=== PATIENT | female | born 1995 | race Caucasian/White ===

== ENCOUNTER → 2020-09-09 11:17 | Outpatient (CLI) | payer OTHER, SELFPAY ==
[2020-09-09 10:11] VITALS: BMI 21.8
[2020-09-09 11:32] LABS: Absolute Lymphocyte Count 0.94 X10^3/uL (0.83-4.51); Absolute Neutrophil Count 6.5 X10^3/uL (2.0-7.7); Basophil# 0.07 X10^3/uL; Basophil% 0.8 % (0-1); Eosinophil# 0.21 X10^3/uL; Eosinophils% 2.5 % (0-5); Hematocrit 40.3 % (37-47); Hemoglobin 13.2 g/dL (12.0-15.0); Lymphocyte # 0.94 X10^3/ul (0.83-4.51); Lymphocyte % 11.3 % (19-41); Mean Corp Hgb Conc 32.8 g/dL (32-36); Mean Corpuscular Hgb 28.8 pg (27.0-32.0); Mean Platelet Vol. 10.9 fl (6.2-12.0); Monocyte# 0.61 X10^3/uL; Monocyte% 7.3 % (0-10); NRBC Flagged by Analyzer 0 % (0-5); Neutrophil # 6.46 X10^3/uL (2.7-7.7); Neutrophil % 77.7 % (47-70); Platelet Count 295 K/mm3 (150-450); RBC Distribution Width CV 12.6 % (11.6-14.6); RBC Distribution Width SD 40.8 fl (35.1-43.9); Red Blood Count 4.58 M/mm3 (4.2-5.4); White Blood Count 8.3 K/mm3 (4.4-11.0)
[2020-09-09 12:25] LABS: HIV - WCH Non-Reactive (Nonreactive); Hepatitis B Surface Antigen Non-Reactive (Nonreactive); Hepatitis C Antibody Non-Reactive (Nonreactive); Rubella IgG Reactive (Nonreactive); Syphilis Antibodies Non-reactive
[2020-09-09 13:33] LABS: Amphetamine Urine VISTA NEGATIVE (<1000 ng/mL); Barbiturate Urine VISTA NEGATIVE (< 200 ng/mL); Benzodiazepine Urine VISTA NEGATIVE (< 200 ng/mL); Cocaine Urine VISTA NEGATIVE (< 300 ng/mL); Ecstacy Urine VISTA NEGATIVE (< 500 ng/mL); Methadone Urine VISTA NEGATIVE (< 300 ng/mL); PCP Urine VISTA NEGATIVE (< 25 ng/mL); THC Urine VISTA NEGATIVE (< 50 ng/mL); Vista UDS pH Range 6
[2020-09-10 20:08] LABS: Chlamydia By Nucleic Acid AMP Negative (Negative)
[2020-09-10 20:24] LABS: Gonococcus By Nucleic Acid AMP Negative (Negative)
== END ==
PROVIDERS: Referring Provider Obstetrics & Gynecology; Visit Provider Obstetrics & Gynecology
DX: Z34.90 Encounter for supervision of normal pregnancy, unspecified, unspecified trimester (principal)
CPT/HCPCS: 36415; 80307; 85025; 86703; 86762; 86780; 86803; 86850; 86900; 86901; 87086; 87340; 87491; 87591

== ENCOUNTER → 2020-12-29 08:19 | Outpatient (CLI) | payer OTHER, SELFPAY ==
[2020-12-01 08:50] VITALS: BMI 21.8
[2020-12-29 08:39] LABS: Absolute Neutrophil Count 6.8 X10^3/uL (2.0-7.7); Basophil# 0.07 X10^3/uL; Basophil% 0.8 % (0-1); Eosinophil# 0.21 X10^3/uL; Eosinophils% 2.4 % (0-5); Hematocrit 33.6 % (37-47); Lymphocyte % 9.2 % (19-41); Mean Corp Hgb Conc 32.7 g/dL (32-36); Mean Corpuscular Hgb 29.8 pg (27.0-32.0); Mean Corpuscular Volume 91.1 fL (81-99); Mean Platelet Vol. 10.2 fl (6.2-12.0); Monocyte% 5.7 % (0-10); NRBC Flagged by Analyzer 0 % (0-5); Neutrophil # 6.78 X10^3/uL (2.7-7.7); Neutrophil % 77.9 % (47-70); Platelet Count 244 K/mm3 (150-450); RBC Distribution Width CV 13.1 % (11.6-14.6); RBC Distribution Width SD 43.6 fl (35.1-43.9); Red Blood Count 3.69 M/mm3 (4.2-5.4); White Blood Count 8.7 K/mm3 (4.4-11.0)
[2020-12-29 08:46] LABS: Glucose Challenge Gest 1H 50g 112 mg/dL (70-140)
== END ==
PROVIDERS: Referring Provider Obstetrics & Gynecology; Visit Provider Obstetrics & Gynecology
DX: Z13.1 Encounter for screening for diabetes mellitus (principal)
CPT/HCPCS: 36415; 82950; 85025

== ENCOUNTER → 2021-03-02 09:14 | Outpatient (CLI) | payer OTHER, SELFPAY ==
[2021-03-02 09:22] LABS: ROM Internal Control Test YES-OK TO RESULT pt. (Internal QC)
[2021-03-02 09:36] LABS: ROM Patient Test Negative (Negative)
== END ==
PROVIDERS: Visit Provider Nurse Practitioner Women's Health
DX: Z34.90 Encounter for supervision of normal pregnancy, unspecified, unspecified trimester (principal)
CPT/HCPCS: 84112

== ENCOUNTER → 2021-03-14 13:12 | Outpatient (CLI) | payer OTHER, SELFPAY ==
[2021-03-14 13:46] LABS: Absolute Lymphocyte Count 0.76 X10^3/uL (0.83-4.51); Absolute Neutrophil Count 7.7 X10^3/uL (2.0-7.7); Basophil# 0.06 X10^3/uL; Basophil% 0.6 % (0-1); Eosinophil# 0.17 X10^3/uL; Eosinophils% 1.8 % (0-5); Hematocrit 37.1 % (37-47); Hemoglobin 12.4 g/dL (12.0-15.0); Lymphocyte # 0.76 X10^3/ul (0.83-4.51); Mean Corp Hgb Conc 33.4 g/dL (32-36); Mean Corpuscular Volume 86.7 fL (81-99); Mean Platelet Vol. 11.2 fl (6.2-12.0); Monocyte# 0.61 X10^3/uL; Monocyte% 6.4 % (0-10); NRBC Flagged by Analyzer 0 % (0-5); Neutrophil # 7.65 X10^3/uL (2.7-7.7); Neutrophil % 80.8 % (47-70); Platelet Count 242 K/mm3 (150-450); RBC Distribution Width CV 12.9 % (11.6-14.6); RBC Distribution Width SD 40.9 fl (35.1-43.9); Red Blood Count 4.28 M/mm3 (4.2-5.4); White Blood Count 9.5 K/mm3 (4.4-11.0)
[2021-03-14 14:03] LABS: ALB/GLOB Ratio 0.7 RATIO (0.9-2.4); AST(SGOT) 16 U/L (15-37); Alanine Aminotransfer ALT/SGPT 29 U/L (13-56); Albumin, Serum 2.7 g/dL (3.2-5.0); Alkaline Phosphatase 152 U/L (45-117); Anion Gap 7 (5-15); BUN 7 mg/dL (7-18); BUN/Creat Ratio 12.9 RATIO (10-20); Calcium,Total 8.8 mg/dL (8.5-10.1); Chloride 105 mmol/L (98-107); Creatinine, Serum 0.54 mg/dL (0.55-1.02); EST Glomerular Filtration Rate 145 mL/min (>60); Est Glom Filt Rate - Afr Amer 175 mL/min (>60); Globulin 3.7 g/dL (2.2-4.2); Glucose 104 mg/dL (74-106); Potassium 3.6 mmol/L (3.5-5.1); Protein, Total 6.4 g/dL (6.4-8.2); Sodium Level 136 mmol/L (136-145)
[2021-03-14 14:16] LABS: Creatinine, Urine (random) < 13.00 mg/dL (NO RANGE EST.); Protein, Urine (Random) < 6.0 mg/dL (<11.9)
== END ==
PROVIDERS: Referring Provider Nurse Practitioner Women's Health; Visit Provider Nurse Practitioner Women's Health
DX: O26.899 Other specified pregnancy related conditions, unspecified trimester (principal); R51.9 Headache, unspecified; Z3A.36 36 weeks gestation of pregnancy
CPT/HCPCS: 36415; 80053; 82570; 84156; 85025; 87081

== ENCOUNTER → 2021-03-28 12:38 | Outpatient (CLI) | payer OTHER, SELFPAY ==
[2021-03-28 13:04] VITALS: BP 125/73; PULSE 90; RESP 16; TEMP 36.1; O2SAT 97
[2021-03-28] MEDS: 0.9% NaCl Peripheral Flush Adult/Peds IV (13:12)
[2021-03-28] MEDS: Dextrose 5%-Lactated Ringers 1,000 ML 999 ML IV (13:12)
[2021-03-28 14:35] VITALS: BP 121/71; PULSE 96; RESP 16
== END ==
PROVIDERS: Referring Provider Obstetrics & Gynecology; Visit Provider Obstetrics & Gynecology
DX: E86.0 Dehydration (principal)
CPT/HCPCS: 96365; A4216

== ENCOUNTER 2021-04-03 14:48 | Inpatient (IN) | payer OTHER, SELFPAY ==
[2021-04-03] VITALS (52 sets, daily range): BP systolic 84–140; BP diastolic 42–90; PULSE 79–114; TEMP 36.3–37.1; O2SAT 92–100; BMI 29.9
[2021-04-03 14:45] LABS: ROM Internal Control Test YES-OK TO RESULT pt. (Internal QC)
[2021-04-03 14:46] LABS: ROM Patient Test POSITIVE (Negative)
[2021-04-03] MEDS: Lactated Ringers 1,000 ML 50 ML IV (15:08)
[2021-04-03] MEDS: Oxytocin 30 units/NS 500 ml 30 UNITS/500 ML IV.SOLN IV (15:19)
[2021-04-03 15:28] LABS: Absolute Lymphocyte Count 0.69 X10^3/uL (0.83-4.51); Absolute Neutrophil Count 7.8 X10^3/uL (2.0-7.7); Basophil# 0.05 X10^3/uL; Basophil% 0.5 % (0-1); Eosinophil# 0.18 X10^3/uL; Eosinophils% 1.9 % (0-5); Hematocrit 39.8 % (37-47); Hemoglobin 13.4 g/dL (12.0-15.0); Lymphocyte # 0.69 X10^3/ul (0.83-4.51); Lymphocyte % 7.3 % (19-41); Mean Corp Hgb Conc 33.7 g/dL (32-36); Mean Corpuscular Hgb 29.5 pg (27.0-32.0); Mean Corpuscular Volume 87.7 fL (81-99); Mean Platelet Vol. 10.7 fl (6.2-12.0); Monocyte% 6.4 % (0-10); NRBC Flagged by Analyzer 0 % (0-5); Neutrophil # 7.79 X10^3/uL (2.7-7.7); Neutrophil % 82.6 % (47-70); Platelet Count 260 K/mm3 (150-450); RBC Distribution Width CV 12.9 % (11.6-14.6); RBC Distribution Width SD 41.3 fl (35.1-43.9); Red Blood Count 4.54 M/mm3 (4.2-5.4); White Blood Count 9.4 K/mm3 (4.4-11.0)
[2021-04-03] MEDS: Lactated Ringers 500 ML 999 ML IV ×2 (18:24→20:15)
[2021-04-03] MEDS: fentaNYL-bupivacaine (epidural) 100 ML BAG EPIDURAL ×2 (19:33→23:37)
--- NOTE | 2021-04-03 19:40 | HP.PCM.OB_ITS ---
HPI - General General Date of Admission: 04/03/21 HPI Narrative TIMBO NULL, is a 25 F who presents with SROM clear fluid, irregular ctx Maternal Data Information GEORGE Calculator Estimated Delivery Date Method Current WG Current Estimate 04/09/21 LMP (Certain) 39w 1d Other Estimates 04/03/21 Ultrasound #1 40w 0d PFSH PFSH Medical History Crohn's disease Crohn's disease Home Medications multivitamin no.47-iron fum 27 mg-folate no.1 1 mg-dha 300 mg capsule 1 cap PO DAILY 08/31/20 [History Last Taken 04/03/21 08:00] Allergy/AdvReac Type Severity Reaction Status Date / Time Penicillins Allergy Intermediate Hives Verified 04/03/21 14:31 Family History Father Hypertension Brother Hypertension Mother Thyroid disorder Grandfather Cancer Leukemia Aunt Cancer Leukemia Uncle Cancer Leukemia Social History household members: spouse housing: house current occupational status: employed current occupation: [employer] Smoking Status: Never smoker second hand exposure: No alcohol intake: never substance use type: does not use seatbelt use: always do you feel safe at home: Yes additional social history: - Vincent ([employer]) History 1 Elective abortions Hx Para 0 Spontaneous abortions Hx # Term Pregnancies Ectopic pregnancies Hx # Pregnancies Multiple births # of living children Visit Details Expected Delivery Route/Plan discussed IOL by 39 per GI recommendation Labor Preferences- CB/BF classes: BF classes done, planning online CB classes labor support person: Vincent labor intervention preferences: [] pain management options preferred: epidural cut cord/dad catch: no : yes PP control planned: discussed discussed possible routes of delivery and associated risks: [] special requests: [] Plans covid status: pos in mar 2020 counseled regarding risk of covid in vs vaccination and declined vaccination flu vaccine: declined. tdap vaccine: declined rhogam: NA LARC form signed: yes movement and labor precautions reviewed. Problem list reviewed and updated with the most current plan of care details and appropriate orders placed. Relevant counseling for the gestational age provided. Continue routine care and follow up unless otherwise noted in visit notes/problem list details OB Flowsheet Initial Weight: 125 lb Date -?-?-?-?-?-?-?-?-?-?-?-?- EGA Weight BP Urine Prot -?-?-?-?-?-?-?-?-?-?-?-?- Glucose FHR FuHt Pres Dilation -?-?-?-?-?-?-?-?-?-?-?-?- Effaced St Visit Note 09/09/20 -?-?-?-?-?-?-?-?-?-?-?-?- 9w 5d 127 lb (+2 lb) 128/82 -?-?-?-?-?-?-?-?-?-?-?-?- 163 -?-?-?-?-?-?-?-?-?-?-?-?- GP - CRL 33mm co nsistent with LMP 10/07/20 -?-?-?-?-?-?-?-?-?-?-?-?- 13w 5d 129 lb 2 oz (+4 lb 2 oz) 104/60 Negative -?-?-?-?-?-?-?-?-?-?-?-?- Negative 155 -?-?-?-?-?-?-?-?-?-?-?-?- SM- no vb crmapi ng 11/02/20 -?-?-?-?-?-?-?-?-?-?-?-?- 17w 3d 136 lb (+11 lb) 112/64 Negative -?-?-?-?-?-?-?-?-?-?-?-?- Negative 140 -?-?-?-?-?-?-?-?-?-?-?-?- SM- no vb crmapi ng 12/01/20 -?-?-?-?-?-?-?-?-?-?-?-?- 21w 4d 144 lb (+19 lb) 130/74 Negative -?-?-?-?-?-?-?-?-?-?-?-?- Negative 150 21 -?-?-?-?-?-?-?-?-?-?-?-?- GP - no LOF, VB, DFM, ctx. Discussed GCT for next visit. 12/29/20 -?-?-?-?-?-?-?-?-?-?-?-?- 25w 4d 153 lb (+28 lb) 118/62 Negative -?-?-?-?-?-?-?-?-?-?-?-?- Negative 138 25 -?-?-?-?-?-?-?-?-?-?-?-?- MH-No Vb, LOF. Good FM. 28 wk labs, banner 01/20/21 -?-?-?-?-?-?-?-?-?-?--?-?- 28w 5d 159 lb (+34 lb) 124/78 Negative -?-?-?-?-?-?-?-?-?-?-?-?- Negative 145 28 -?-?-?-?-?-?-?-?-?-?-?-?- GP - no LOF, VB, DFM, ctx. Denies complaints. Undecided on TDAP. 02/03/21 -?-?-?-?-?-?-?-?-?-?-?-?- 30w 5d 161 lb (+36 lb) 128/66 Negative -?-?-?-?-?-?-?-?-?-?-?-?- Negative 150 30 -?-?-?-?-?-?-?-?-?-?-?-?- GP - no LOF, VB, DFM, ctx. Discussed CB classes - planning online 02/17/21 -?-?-?-?-?-?-?-?-?-?-?-?- 32w 5d 163 lb (+38 lb) 118/76 Negative -?-?-?-?-?-?-?-?-?-?-?-?- Negative 150 33 -?-?-?-?-?-?-?-?-?-?-?-?- SM- no vb lof go od fm no reluglar ctx 02/25/21 -?-?-?-?-?-?-?-?-?-?-?-?- 33w 6d 167 lb (+42 lb) 136/88 Negative -?-?-?--?-?-?-?-?-?-?-?-?- Negative 130 34 -?-?-?-?-?-?-?-?-?-?-?-?- GP - work in for abdominal trauma. lightly hit her abdomen. NST done and reactive. Warning signs reviewed. 03/02/21 -?-?-?-?-?-?-?-?-?-?-?-?- 34w 4d 169 lb 4 oz (+44 lb 4 oz) 122/78 Negative -?-?-?-?-?-?-?-?-?-?-?-?- Negative 151 0 -?-?-?-?-?-?-?-?-?-?-?-?- MH-work in for l eak of yellow fluid 0530. Had IC yesterday. No further leakage. ROM pending. NO VB, Mild cramping. Good FM 03/14/21 -?-?-?-?-?-?-?-?-?-?-?-?- 36w 2d 170 lb 6 oz (+45 lb 6 oz) 128/84 Negative -?-?-?-?-?-?-?-?-?-?-?-?- Negative 180 36 0 -?-?-?-?-?-?-?-?-?-?-?-?- MH-Work in for h eadache causing nausea/vomiting. Did not respond to tylenol. Denies vision changes right eye feels stressed. Good FM, no VB, LOF. GBS done. Mild edema ankles. None of face. Kept her awake last pm. Rx phenergan, NST today. Pre E labs. 03/21/21 -?-?-?-?-?-?-?-?-?-?-?-?- 37w 2d 175 lb 6 oz (+50 lb 6 oz) 120/70 Negative -?-?-?-?-?-?-?-?-?-?-?-?- Negative 135 37 Cephalic -?-?-?-?-?-?-?-?-?-?-?-?- Sm- no vb lof go od fm no regular ctx 03/29/21 -?-?-?-?-?-?-?-?-?-?-?-?- 38w 3d 173 lb 4 oz (+48 lb 4 oz) 128/80 Negative -?-?-?-?-?-?-?-?-?-?-?-?- Negative 135 38 Cephalic -?-?-?-?-?-?-?-?-?-?-?-?- SM- no vb lof go od fm no regular ctx. grandmother dying from covid, struggling with this. discussed her GI doctor stated she should consider a primary c section due to crohns', discussed with patient she has been in remission 4 years, no meds, and has no active perineal disease or rectal involvment so is reasonable, per GI recommend IOL to decrease size and decrease likelihood of laceration and fistula disease in the future. patient to decide but would prefer IOL and . d iscussed risks of laceration including larger baby, no epidural, OVD. 04/01/21 -?-?-?-?-?-?-?-?-?-?-?-?- 38w 6d 175 lb (+50 lb) 102/82 Negative -?-?-?-?-?-?-?-?-?-?-?-?- Negative 135 39 Cephalic 1 -?-?-?-?-?-?-?-?-?-?-?-?- 20 -3 Sm- no vb lof some dec fm discussed IOL to have reduced size at recommendation of GI doctor, patient to decide. would recommend cytotec IOL 04/03/21 -?-?-?-?-?-?-?-?-?-?-?-?- 39w 1d 174 lb 2 oz (+49 lb 2 oz) 122/70 123/78 140/67 132/65 140/77 129/69 116/63 126/75 125/69 106/53 101/59 -?-?-?-?-?-?-?-?-?-?-?-?- -?-?-?-?-?-?-?-?-?-?-?-?- NST FHR Rate Baby A Baseline: 140 Variability:: Moderate Accelerations:: 15 x 15 Decelerations:: None NST Reactive:: Yes FHR Category:: Category I Uterine Activity:: irregular ROS Constitutional Constitutional: Reports systems reviewed and no addt'l complaints, except as documented ENT HEENT: Reports systems reviewed and no addt'l complaints, except as documented Cardiovascular Cardiovascular: Reports systems reviewed and no addt'l complaints, except as documented Respiratory/Chest Respiratory/Chest: Reports systems reviewed and no addt'l complaints, except as documented Gastrointestinal Gastrointestinal: Reports systems reviewed and no addt'l complaints, except as documented and nausea; Denies abdominal pain Genitourinary Genitourinary: Reports systems reviewed and no addt'l complaints, except as documented, contractions Details: present and frequency (regular ) and movement Details: present Musculoskeletal Musculoskeletal: Reports systems reviewed and no addt'l complaints, except as documented Integumentary Integumentary: Reports as per HPI Neurologic Neurologic: Reports systems reviewed and no addt'l complaints, except as documented Endocrine Endocrinology: Reports systems reviewed and no addt'l complaints, except as documented Vital Signs Vital Signs Vital Signs: 04/03/21 14:36 04/03/21 16:35 04/03/21 16:36 Temperature 98.8 F 97.7 F L Temperature Source Temporal Pulse Rate 89 79 Blood Pressure 122/70 H 123/78 H BP Systolic 122 123 BP Diastolic 70 78 Pulse Ox 04/03/21 19:05 04/03/21 19:08 04/03/21 19:11 Temperature Temperature Source Pulse Rate 95 103 H 101 H Blood Pressure 132/65 H 140/77 H BP Systolic 132 140 BP Diastolic 65 77 Pulse Ox 99 04/03/21 19:13 04/03/21 19:15 04/03/21 19:18 Temperature Temperature Source Pulse Rate 104 H 103 H 93 Blood Pressure 129/69 H BP Systolic 129 BP Diastolic 69 Pulse Ox 100 99 04/03/21 19:20 04/03/21 19:23 04/03/21 19:26 Temperature Temperature Source Pulse Rate 99 107 H 104 H Blood Pressure 116/63 126/75 H BP Systolic 116 126 BP Diastolic 63 75 Pulse Ox 99 04/03/21 19:28 04/03/21 19:30 04/03/21 19:34 Temperature Temperature Source Pulse Rate 86 109 H Blood Pressure 125/69 H BP Systolic 125 BP Diastolic 69 Pulse Ox 99 98 04/03/21 19:35 Temperature 98.4 F Temperature Source Pulse Rate 107 H Blood Pressure 106/53 L BP Systolic 106 BP Diastolic 53 Pulse Ox Weight Weight: 174 lb 2 oz Body Mass Index (BMI) 29.9 Physical Exam Const alert, oriented x3 and healthy appearing Constitutional Narrative: uncomfortable with contractions HEENT normocephalic and moist oral mucous membranes Head and Scalp: atraumatic Neck full ROM, no lymphadenopathy, supple and thyroid normal General: trachea midline Thyroid: thyroid normal Lymph Lymphatic: no lymphadenopathy noted Chest inspection of chest normal Resp normal respiratory effort Cardio regular rate GI normal to inspection, nondistended, normoactive bowel sounds, soft to palpation and non-tender Inspection: gravid external exam normal Bimanual Exam - Vag & Uterus: uterus non-tender Manual OB Exam: estimated gestational size appropriate, presentation cephalic, dilated, effaced and station Extremity normal to inspection General Extremity: Negative for edema Skin no rashes or lesions noted Neuro deep tendon reflexes 2+ bilaterally Motor Exam: strength 5/5 throughout and clonus absent Psych mental status grossly normal Labs Labs Labs: Blood Type B POSITIVE Antibody Screen NEGATIVE Hct 39.8 % (37-47) Hgb 13.4 g/dL (12.0-15.0) Pap Smear Negative Syphilis Total Ab Non-reactive Rubella IgG Antibody Reactive (Nonreactive) Hep Bs Antigen Non-Reactive (Nonreactive) Neisseria gonorrhoeae DNA (AVERY) Negative (Negative) HIV 1&2 Antibody Non-Reactive (Nonreactive) Glucose 1 Hr 50 gm 112 mg/dL (70-140) Assessment & Plan (1) Crohn's disease: QUALIFIERS: Gastrointestinal tract location: unspecified location Digestive disease complication type: unspecified complication Qualified Code(s): K50.919 - Crohn's disease, unspecified, with unspecified complications COMMENT: no meds. abscess with fistula 5 years ago. GI recommended either IOL with small size consider primary . discussed that if no rectal disease or active perineal involvement do not recommend primary but IOL reasonable. (2) Supervision of normal : QUALIFIERS: Normal : normal first Trimester: second trimester Qualified Code(s): Z34.02 - Encounter for supervis ion of normal first , second trimester COMMENT: PRR GEORGE: 04/13/2022 boy Spouse: Vincent (3) : QUALIFIERS: Weeks of gestation: 38 weeks Qualified Code(s): Z3A.38 - 38 weeks gestation of COMMENT: declines genetic and carrier, ntd screening. nl anatomy. GBS neg (4) PROM (premature rupture of membranes): COMMENT: admit, pit AOL, epi PRN
[2021-04-04] VITALS (59 sets, daily range): BP systolic 111–133; BP diastolic 60–83; PULSE 77–127; RESP 16; TEMP 36.5–37.8; O2SAT 93–100
[2021-04-04] MEDS: Ondansetron 4 MG/2 ML Vial IV (00:18)
[2021-04-04] MEDS: 0.9% Saline Lock 10 ML Syringe IV (00:18)
[2021-04-04] MEDS: Lactated Ringers 1,000 ML 200 ML IV (01:24)
[2021-04-04] MEDS: Mag Hydrox/Al Hydrox/Simeth 30 ML UDC PO (03:12)
[2021-04-04] MEDS: Silver Nitrate (BKC) 2 EACH TOPICAL (03:55)
[2021-04-04] MEDS: Oxytocin 30 units/NS 500 ml 30 UNITS/500 ML IV.SOLN 334 UNITS IV (03:57)
--- NOTE | 2021-04-04 04:04 | EX.PCM.OBRPT ---
Assessment & Plan (1) PROM (premature rupture of membranes): COMMENT: admit, pit AOL, epi PRN (2) Crohn's disease: QUALIFIERS: Gastrointestinal tract location: unspecified location Digestive disease complication type: unspecified complication Qualified Code(s): K50.919 - Crohn's disease, unspecified, with unspecified complications COMMENT: no meds. abscess with fistula 5 years ago. GI recommended either IOL with small size consider primary . discussed that if no rectal disease or active perineal involvement do not recommend primary but IOL reasonable. (3) Supervision of normal : QUALIFIERS: Normal : normal first Trimester: second trimester Qualified Code(s): Z34.02 - Encounter for supervision of normal first , second trimester COMMENT: PRR GEORGE: 04/13/2022 boy Spouse: Vincent (4) : QUALIFIERS: Weeks of gestation: 38 weeks Qualified Code(s): Z3A.38 - 38 weeks gestation of COMMENT: declines genetic and carrier, ntd screening. nl anatomy. GBS neg (5) Vaginal delivery: COMMENT: PROM 39 SM boy Jones Maternal Data Information GEORGE Calculator Estimated Delivery Date Method Current WG Current Estimate 04/09/21 LMP (Certain) 39w 2d Other Estimates 04/03/21 Ultrasound #1 40w 1d Vaginal Delivery Operative Information Date of Procedure: 04/04/21 Pre-Operative Diagnosis: IAL Post-Operative Diagnosis: same Surgery / Procedure Performed: Spontaneous Vaginal Delivery Type of Anesthesia: Epidural Special Medications: none Estimated Blood Loss: 100 Fluids Replaced: crystalloid Findings Description of Procedure: Patient began pushing and delivered the head in the JOCELYEN presentation. The head was delivered atraumatically and a loose nuchal cord ?1 was identified and the delivered through without complication. The anterior and posterior shoulders delivered without complication followed by the rest of the infant and the was placed on the maternal abdomen. Delayed cord clamping was employed for approximately 60 seconds. Cord was clamped and cut and gentle traction was applied to the cord and the placenta delivered spontaneously immediately following it was noted to be intact with three-vessel cord. The perineum and vagina were inspected and noted to have no laceration. EBL was 100 cc. Patient and infant tolerated delivery well. Presentation: JOCELYNE Amniotic Membrane Rupture Type: Artificial Amniotic Fluid Description: Clear Placental Delivery Description: Spontaneous Placenta Disposition: [facility] Cord Vessel Description: 3 Vessels Cord Entanglement: Around neck x 1, loose A Gender: Female Delayed Cord Clamping: Yes Post Vaginal Delivery Medications Given After Delivery: IV Pitocin Episiotomy Description: None Laceration: None Complication Complications: None Procedures Urinary/Genital [id number]: [id number] [facility]
--- NOTE | 2021-04-04 04:08 | PCM.DC ---
Discharge Instructions Diet Discharge Diet: No restrictions Activity Discharge Activity: Return to Normal Activity, May Not Drive (while taking narcotic pain medications.) and May Shower May resume sexual activity in: 4-6 weeks Dressing / Incision Call your doctor if your incision/area has: Continuous Slow Oozing, Sudden Increased Bleeding, Increased Pain/ Swelling, Increased Redness and Foul Smelling Discharge Follow Up Care Please Follow Up With: Lilia Tovar MD When: Call [phone] to make an appointment with your doctor in 6 weeks. If you had elevated blood pressure or 4th degree laceration, you will need to be seen in 2 weeks. Test Results: Test results from this visit will be discussed in further detail at your follow-up appointment, if applicable. Discharge Plan Admission Admit Date/Time: 04/03/21 14:48 Primary Reason for Your Visit: vaginal delivery Attending Provider: Lilia Tovar Primary Care Provider: Care Physician,Emily Primary Discharge Orders/Prescriptions Prescriptions: No Action PNV-DHA 27 mg iron-1 mg -300 mg capsule 1 cap PO DAILY RF: 0 Referrals / Follow Up: Care Physician,No Primary [Primary Care Provider] - Disposition Disposition (needs filled in before D/C Order can be placed): Home, Self Care
[2021-04-04] MEDS: Hydrocortisone 2.5% Crm 1 APPLIC TOPICAL (09:51)
[2021-04-04] MEDS: Senna/Docusate Sodium 1 Tablet PO (09:52)
[2021-04-04] MEDS: Prenatal Vits Tablet 1 TABLET PO (09:52)
[2021-04-04] MEDS: Acetaminophen 500 MG Tablet 1000 MG PO (20:16)
[2021-04-05] VITALS (10 sets, daily range): BP systolic 116–127; BP diastolic 72–81; PULSE 74–86; RESP 14–16; TEMP 35.5–36.8
[2021-04-05] MEDS: Acetaminophen 500 MG Tablet 1000 MG PO (02:58)
--- NOTE | 2021-04-05 07:54 | PCM.PN.OB ---
Subjective Subjective Patient doing well without complaints. Tolerating PO. Ambulating and voiding without difficulty. Feeding well. Denies chest pain, shortness of breath, calf pain/swelling, fevers, chills, lightheadedness. Objective Data Objective Data Vital Signs: Vital Signs Temp Pulse Resp BP Pulse Ox 96.9 F L 82 16 125/79 H 97 04/05/21 03:01 04/05/21 03:01 04/05/21 03:01 04/05/21 03:01 04/04/21 17:15 Oxygen Delivery Method Room Air Weight: 174 lb 2 oz Body Mass Index (BMI) 29.9 Intake & Output: Intake and Output for Last 24 Hours 04/03/21 04/04/21 04/05/21 23:59 23:59 23:59 Intake Total 2036.87 / 3536.87 3800 / 3800 Output Total 3150 / 3150 Balance 2036.87 / 2786.87 650 / 650 Lab / Micro Data Result Diagrams: 04/03/21 15:10 Physical Exam Const alert and oriented x3 HEENT normocephalic Eyes PERRL Neck full ROM Resp normal respiratory effort GI soft to palpation GI Narrative: FF below U Assessment & Plan (1) Vaginal delivery: COMMENT: PROM 39 SM boy Jones PLAN: s/p PPD # 1 1. routine post delivery care 2. breast feeding- support given 3. rh positive 4. rubella immune 5. home today
[2021-04-05] MEDS: Senna/Docusate Sodium 1 Tablet PO (10:46)
[2021-04-05] MEDS: Prenatal Vits Tablet 1 TABLET PO (13:38)
[2021-04-06 02:50] VITALS: BP 135/88; PULSE 80; RESP 14; TEMP 36; TEMP 36.6
--- NOTE | 2021-04-06 07:47 | PCM.PN.OB ---
Subjective Subjective Patient doing well without complaints. Tolerating PO. Ambulating and voiding without difficulty. Breast feeding with some difficulty but improvingl. Denies chest pain, shortness of breath, calf pain/swelling, fevers, chills, lightheadedness. Objective Data Objective Data Vital Signs: Vital Signs Temp Pulse Resp BP Pulse Ox 98 F 80 14 135/88 H 97 04/06/21 02:50 04/06/21 02:50 04/06/21 02:50 04/06/21 02:50 04/04/21 17:15 Oxygen Delivery Method Room Air Weight: 174 lb 2 oz Body Mass Index (BMI) 29.9 Intake & Output: Intake and Output for Last 24 Hours 04/04/21 04/05/21 04/06/21 23:59 23:59 23:59 Intake Total 3800 / 3800 Output Total 3150 / 3150 Balance 650 / 650 Lab / Micro Data Result Diagrams: 04/03/21 15:10 Physical Exam Const alert and oriented x3 HEENT normocephalic Eyes PERRL Neck full ROM Resp normal respiratory effort GI soft to palpation GI Narrative: FF below U Assessment & Plan (1) Vaginal delivery: COMMENT: PROM 39 SM boy Jones PLAN: s/p PPD # 2 1. routine post delivery care 2. breast feeding- support given 3. rh positive 4. rubella immune 5. home today
[2021-04-06 08:15] VITALS: BP 129/77; PULSE 89; RESP 16; TEMP 36.4
[2021-04-06 08:17] VITALS: BP 129/77; PULSE 89; TEMP 36.4
[2021-04-06] MEDS: Senna/Docusate Sodium 1 Tablet PO (08:24)
[2021-04-06] MEDS: Prenatal Vits Tablet 1 TABLET PO (08:24)
[2021-04-06] MEDS: Hydrocortisone 2.5% Crm 1 APPLIC TOPICAL (08:24)
[2021-04-06 20:44] VITALS: PULSE 79; O2SAT 98
== END 2021-04-06 12:44 | disposition home or self-care (01) | DRG 806 ==
LOC: WPOUT 14:50 → WP 14:50
PROVIDERS: Admitting Provider Obstetrics & Gynecology; Visit Provider Obstetrics & Gynecology
DX: O42.92 Full-term premature rupture of membranes, unspecified as to length of time between rupture and onset of labor (principal); K50.90 Crohn's disease, unspecified, without complications; Z37.0 Single live birth; Z3A.39 39 weeks gestation of pregnancy; O99.62 Diseases of the digestive system complicating childbirth; O69.81X0 Labor and delivery complicated by cord around neck, without compression, not applicable or unspecified
CPT/HCPCS: 59025; 59050; 84112; 85025; 86850; 86900; 86901; 99218; J7120; A4216; G0378; J2405

== ENCOUNTER 2021-06-27 10:16 | Outpatient (CLI) | payer OTHER, SELFPAY | END 2021-06-27 23:59 | disposition home or self-care (01) | LOC: LABSPEC 06-28 10:16 | PROVIDERS: Visit Provider Nurse Practitioner Women's Health | DX: N76.0 Acute vaginitis (principal) | CPT/HCPCS: 87070; 87205 ==

== ENCOUNTER → 2022-05-22 | Outpatient (CLI) | payer OTHER, SELFPAY ==
[2022-05-22 10:12] LABS: Absolute Lymphocyte Count 0.83 X10^3/uL (0.83-4.51); Absolute Neutrophil Count 6.1 X10^3/uL (2.0-7.7); Basophil# 0.04 X10^3/uL; Basophil% 0.5 % (0-1); Eosinophil# 0.13 X10^3/uL; Eosinophils% 1.7 % (0-5); Hemoglobin 13.5 g/dL (12.0-15.0); Lymphocyte # 0.83 X10^3/ul (0.83-4.51); Lymphocyte % 11.1 % (19-41); Mean Corp Hgb Conc 32.9 g/dL (32-36); Mean Corpuscular Hgb 28.7 pg (27.0-32.0); Mean Corpuscular Volume 87.2 fL (81-99); Mean Platelet Vol. 10.7 fl (6.2-12.0); Monocyte# 0.37 X10^3/uL; Monocyte% 4.9 % (0-10); NRBC Flagged by Analyzer 0 % (0-5); Neutrophil # 6.08 X10^3/uL (2.7-7.7); Neutrophil % 81.3 % (47-70); Platelet Count 328 K/mm3 (150-450); RBC Distribution Width CV 12.9 % (11.6-14.6); RBC Distribution Width SD 40.5 fl (35.1-43.9); White Blood Count 7.5 K/mm3 (4.4-11.0)
[2022-05-22 11:14] LABS: HIV - WCH Non-Reactive (Nonreactive); Hepatitis B Surface Antigen Non-Reactive (Nonreactive); Hepatitis C Antibody Non-Reactive (Nonreactive); Rubella IgG Reactive (Nonreactive); Syphilis Antibodies Non-reactive
[2022-05-24 00:06] LABS: Chlamydia By Nucleic Acid AMP Negative (Negative)
[2022-05-24 16:06] LABS: HPV Reflexed? NOT INDICATED
[2022-05-24 16:56] LABS: Gonococcus By Nucleic Acid AMP Negative (Negative)
== END | disposition home or self-care (01) ==
PROVIDERS: Referring Provider Obstetrics & Gynecology; Visit Provider Obstetrics & Gynecology
DX: Z34.91 Encounter for supervision of normal pregnancy, unspecified, first trimester (principal)
CPT/HCPCS: 36415; 85025; 86703; 86762; 86780; 86803; 86850; 86900; 86901; 87086; 87088; 87340; 87491; 87591; 88175; G0145

== ENCOUNTER → 2022-09-18 | Outpatient (CLI) | payer OTHER, SELFPAY ==
[2022-09-18 08:50] LABS: Absolute Lymphocyte Count 1.05 X10^3/uL (0.83-4.51); Basophil# 0.07 X10^3/uL; Basophil% 0.8 % (0-1); Eosinophil# 0.34 X10^3/uL; Eosinophils% 3.7 % (0-5); Hematocrit 36.3 % (37-47); Lymphocyte # 1.05 X10^3/ul (0.83-4.51); Lymphocyte % 11.5 % (19-41); Mean Corp Hgb Conc 33.1 g/dL (32-36); Mean Corpuscular Hgb 29.4 pg (27.0-32.0); Mean Platelet Vol. 10.4 fl (6.2-12.0); Monocyte# 0.49 X10^3/uL; Monocyte% 5.3 % (0-10); NRBC Flagged by Analyzer 0 % (0-5); Neutrophil # 6.97 X10^3/uL (2.7-7.7); Platelet Count 246 K/mm3 (150-450); RBC Distribution Width CV 13.2 % (11.6-14.6); RBC Distribution Width SD 43.8 fl (35.1-43.9); Red Blood Count 4.08 M/mm3 (4.2-5.4); White Blood Count 9.2 K/mm3 (4.4-11.0)
[2022-09-18 09:03] LABS: Glucose Challenge Gest 1H 50g 117 mg/dL (70-140)
[2022-09-18 09:38] LABS: HIV - WCH Non-Reactive (Nonreactive); Syphilis Antibodies Non-reactive
== END | disposition home or self-care (01) ==
LOC: PAVLAB 08:25
PROVIDERS: Referring Provider Advanced Practice Midwife; Visit Provider Advanced Practice Midwife
DX: O09.90 Supervision of high risk pregnancy, unspecified, unspecified trimester (principal); Z3A.00 Weeks of gestation of pregnancy not specified
CPT/HCPCS: 36415; 82950; 85025; 86703; 86780

== ENCOUNTER → 2022-11-27 | Outpatient (CLI) | payer OTHER, SELFPAY | END | disposition home or self-care (01) | LOC: LABSPEC 11:33 | PROVIDERS: Referring Provider Registered Nurse; Visit Provider Registered Nurse | DX: O09.90 Supervision of high risk pregnancy, unspecified, unspecified trimester (principal); Z3A.00 Weeks of gestation of pregnancy not specified | CPT/HCPCS: 87081 ==

== ENCOUNTER 2022-12-09 22:35 | Outpatient (CLI) | payer OTHER, SELFPAY ==
[2022-12-09 22:58] VITALS: BMI 30.4
[2022-12-09 23:09] VITALS: BP 121/71; PULSE 83; TEMP 37.1; O2SAT 97
--- NOTE | 2022-12-12 03:15 | OB.TRI.HP_ITS ---
HPI - General General Date of Admission: 12/09/22 Date of Service: 12/09/22 Chief Complaint: contractions HPI Narrative TIMBO NULL, is a 26 F who presents at 38 weeks with irregular but painful contractions. good fm. no vb/lof. Maternal Data Information GEORGE Calculator Estimated Delivery Date Method Current WG Current Estimate 12/23/22 LMP (Certain) 38w 3d PFSH PFSH Medical History (Updated 12/12/22 @ 03:16 by Aleshia Bear CNM) Anxiety Crohn's disease Crohn's disease depression Vaginal delivery Home Medications multivitamin no.47-iron fum 27 mg-folate no.1 1 mg-dha 300 mg capsule (PNV-DHA) cap PO 05/11/22 [History Last Taken 12/09/22 23:00] sertraline 25 mg tablet (Zoloft) 25 mg PO DAILY #30 tabs 12/11/22 [Rx Last Taken Unknown] Allergy/AdvReac Type Severity Reaction Status Date / Time Penicillins Allergy Intermediate Hives Verified 12/09/22 22:59 Family History Father Hypertension Brother Hypertension Mother Thyroid disorder Grandfather Cancer Leukemia Aunt Cancer Leukemia Uncle Cancer Leukemia Social History adopted: No household members: spouse and children housing: house number of children: 1 current occupational status: employed current occupation: [employer] current occupational exposures/hazards: Yes (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) pets and animals: No history of recent travel: No sexually active: Yes Smoking Status: Never smoker second hand exposure: No alcohol intake: never substance use type: does not use diet: gluten free well-balanced diet: daily or most days caffeine: Yes Type: coffee Number of servings: 1 eating out: 1-3 times/week during the past year weight has: remained stable what type of physical activity do you participate in: none morena/caodaism: Muslim seatbelt use: always do you feel safe at home: Yes 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 Date Name GA/Weeks Outcome Route Bth Weight Gen Labor Lgth Anesthesia Del [place] Provider FOB 04/04/21 Jones 39 live - full term Male epidur al [facility] SM Delivery Date: 04/04/21 Last Updated by: Maryellen Torrez PROM Visit Details Expected Delivery Route/Plan Labor Preferences- CB/BF classes: Denies labor support person: Vincent labor intervention preferences: pain management options preferred: Epidural cut cord/dad catch: cord : yes PP control planned: [] discussed possible routes of delivery and associated risks: [] special requests: warm compress to perineum, active perineal support during second phase. Plans Covid status: discussed Flu vaccine: discussed Tdap vaccine: declines Rhogam: na LARC form signed: yes Problem list reviewed and updated with the most current plan of care details and appropriate orders placed. Relevant counseling for the gestational age provided. Continue routine care and follow up unless otherwise noted in visit notes/problem list details OB Flowsheet Initial Weight: Not Recorded Date -?-?-?-?-?-?-?-?-?-?-?-?- EGA Weight BP Urine Prot -?-?-?-?-?-?-?-?-?-?-?-?- Glucose FHR FuHt Pres Dilation -?-?-?-?-?-?-?-?-?-?-?-?- Effaced St Visit Note 05/22/22 -?-?-?-?-?-?-?-?-?-?-?-?- 9w 2d 142 lb 100/70 -?-?-?-?-?-?-?-?-?-?-?-?- 180 -?-?-?-?-?-?-?-?-?-?-?-?- SM- 2.6cm cons w ith LMP 06/19/22 -?-?-?-?-?-?-?-?-?-?-?-?- 13w 2d 148 lb 4 oz 115/73 Nega tive -?-?-?-?-?-?-?-?-?-?-?-?- Negative 145 -?-?-?-?-?-?-?-?-?-?-?-?- SM- no vb crmapi ng 07/17/22 -?-?-?-?-?-?-?--?-?-?-?-?- 17w 2d 152 lb 8 oz 118/72 Nega tive -?-?-?-?-?-?-?-?-?-?-?-?- Negative 156 -?-?-?-?-?-?-?-?-?-?-?-?- MH-No Vb. Feels well. US is 07/31. Denies concerns 08/23/22 -?-?-?-?-?-?-?-?-?-?-?-?- 22w 4d 158 lb 115/76 Negative -?-?-?-?-?-?-?-?-?-?-?-?- Negative 145 23 -?-?-?-?-?-?-?-?-?-?-?-?- KW-+fm. no vb/cr amping. KW-+fm. no vb/cramping. no concerns. GTT next visit. discussed U S q 4 weeks start at 23 weeks 09/18/22 -?-?-?-?-?-?-?-?-?-?-?-?- 26w 2d 164 lb 8 oz 123/77 Nega tive -?-?-?-?-?-?-?-?-?-?-?-?- Negative 140 26 -?-?-?-?-?-?-?-?-?-?-?-?- SM- no vb lof go od fm no regular ctx 10/12/22 -?-?-?-?-?-?-?-?-?-?-?-?- 29w 5d 165 lb 2 oz 115/73 Nega tive -?-?-?-?-?-?-?-?-?-?-?-?- Negative 155 30 -?-?-?-?-?-?-?-?-?-?-?--?- JV- no lof, vagi nal bleeding, or cramping. wants to hold off on 39 week IOL and wait for spontaneous labor this time if possible. discussed risk of pp depression. 10/23/22 -?-?-?-?-?-?-?-?-?-?-?-?- 31w 2d 166 lb 4 oz 114/68 Nega tive -?-?-?-?-?-?-?-?-?-?-?-?- Negative 142 -?-?-?-?-?-?-?-?-?-?-?-?- MH-No Vb, LOF. G ood Fm. 11/06/22 -?-?-?-?-?-?-?-?-?-?-?-?- 33w 2d 167 lb 6 oz 108/72 Nega tive -?-?-?-?-?-?-?-?-?-?-?-?- Negative 130 34 -?-?-?-?-?-?-?-?-?-?-?-?- SM- no vb lof go od fm no regular ctx 11/20/22 -?-?-?-?-?-?-?-?-?-?-?-?- 35w 2d 172 lb 128/79 Negative -?-?-?-?-?-?-?-?-?-?-?-?- Negative 135 35 -?-?-?-?-?-?-?-?-?-?-?-?- Sm- no vb lof go od fm no regular ctx 11/27/22 -?-?-?-?-?-?-?-?-?-?-?-?- 36w 2d 174 lb 8 oz 120/77 Nega tive -?-?-?-?-?-?-?-?-?-?-?-?- Negative 132 36 -?-?-?-?-?-?-?-?-?-?-?-?- LC- no lof/vb/ct x. good fm. concerned with tissue integrity during delivery, wants warm compress and perineal support during delivery. reviewed CNM rolls gbs collected today. 12/04/22 -?-?-?-?-?-?-?-?-?-?-?-?- 37w 2d 177 lb 127/79 Negative -?-?-?-?-?-?-?-?-?-?-?-?- Negative 150 37 Cephalic 0 -?-?-?-?-?-?-?-?-?-?-?-?- LC- no lof/vb/ct x. good fm. gbs negative. having lalo hick, will increase po intake. no other concerns.cephalic on handheld ultrasound. NST FHR Rate Baby A Baseline: 130 Variability:: Moderate Accelerations:: 15 x 15 Decelerations:: None NST Reactive:: Yes FHR Category:: Category I Uterine Activity:: 6-8 minutes Assessment & Plan (1) Irregular contractions: PLAN: Patient presents for triage evaluation secondary to contractions. declines repeat cervical check and desires d/c home as contractions are decreasing in intensity. FHT: Moderate variability reactive no decelerations category I tracing [place]: Contractions Assessment and plan: Reactive NST, reassuring maternal and status patient discharged to home to follow-up in office, labor precautions given. See problem list details for additional plan information. Charges/Coding Procedures Urinary/Genital [id number]: [id number] non-stress test Interp
== END 2022-12-10 00:02 | disposition home or self-care (01) ==
LOC: WPOUT 22:45 → WP 22:46
PROVIDERS: Visit Provider Registered Nurse
DX: O47.1 False labor at or after 37 completed weeks of gestation (principal); Z3A.38 38 weeks gestation of pregnancy
CPT/HCPCS: 59025; 59050

== ENCOUNTER 2022-12-10 02:42 | Inpatient (IN) | payer OTHER, SELFPAY ==
[2022-12-10] VITALS (38 sets, daily range): BP systolic 117–157; BP diastolic 61–94; PULSE 77–100; RESP 16–24; TEMP 36.2–36.9; O2SAT 92–100; BMI 30.4
[2022-12-10] MEDS: Lactated Ringers 1,000 ML 50 ML IV (02:39)
[2022-12-10] MEDS: Oxytocin 15 Units/NS 250ml 15 UNITS/250 ML IV.SOLN 83 UNITS IV (03:01)
[2022-12-10] MEDS: Oxytocin 10 UNITS/ML Vial IM (03:01)
[2022-12-10 03:22] LABS: Absolute Lymphocyte Count 2.12 X10^3/uL (0.83-4.51); Absolute Neutrophil Count 9.9 X10^3/uL (2.0-7.7); Basophil# 0.09 X10^3/uL; Basophil% 0.7 % (0-1); Eosinophils% 2.9 % (0-5); Hematocrit 39.2 % (37-47); Hemoglobin 13.4 g/dL (12.0-15.0); Lymphocyte # 2.12 X10^3/ul (0.83-4.51); Lymphocyte % 15.4 % (19-41); Mean Corp Hgb Conc 34.2 g/dL (32-36); Mean Corpuscular Hgb 29.8 pg (27.0-32.0); Mean Corpuscular Volume 87.3 fL (81-99); Monocyte# 0.86 X10^3/uL; Monocyte% 6.2 % (0-10); NRBC Flagged by Analyzer 0 % (0-5); Neutrophil # 9.86 X10^3/uL (2.7-7.7); Neutrophil % 71.3 % (47-70); Platelet Count 277 K/mm3 (150-450); RBC Distribution Width CV 13.2 % (11.6-14.6); RBC Distribution Width SD 41.7 fl (35.1-43.9); Red Blood Count 4.49 M/mm3 (4.2-5.4); White Blood Count 13.8 K/mm3 (4.4-11.0)
--- NOTE | 2022-12-10 03:24 | HP.PCM.OB_ITS ---
HPI - General General Date of Admission: 12/10/22 HPI Narrative TIMBO NULL, is a 26 F who presents at 38+1 with intensifying uterine contractions. no lof/vb. +fm. Maternal Data Information GEORGE Calculator Estimated Delivery Date Method Current WG Current Estimate 12/23/22 LMP (Certain) 38w 1d PFSH PFSH Medical History Crohn's disease Crohn's disease Vaginal delivery Home Medications multivitamin no.47-iron fum 27 mg-folate no.1 1 mg-dha 300 mg capsule (PNV-DHA) cap PO 05/11/22 [History Last Taken 12/09/22 23:00] Allergy/AdvReac Type Severity Reaction Status Date / Time Penicillins Allergy Intermediate Hives Verified 12/09/22 22:59 Family History Father Hypertension Brother Hypertension Mother Thyroid disorder Grandfather Cancer Leukemia Aunt Cancer Leukemia Uncle Cancer Leukemia Social History adopted: No household members: spouse and children housing: house number of children: 1 current occupational status: employed current occupation: [employer] current occupational exposures/hazards: Yes (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) pets and animals: No history of recent travel: No sexually active: Yes Smoking Status: Never smoker second hand exposure: No alcohol intake: never substance use type: does not use diet: gluten free well-balanced diet: daily or most days caffeine: Yes Type: coffee Number of servings: 1 eating out: 1-3 times/week during the past year weight has: remained stable what type of physical activity do you participate in: none morena/zoroastrianism: Baptism seatbelt use: always do you feel safe at home: Yes additional social history: - Vincent (HistoryFile) History 2 Elective abortions Hx Para 1 Spontaneous abortions Hx # Term Pregnancies Ectopic pregnancies Hx # Pregnancies Multiple births # of living children 1 Past Pregnancies Del. Date Name GA/Weeks Outcome Route Bth Weight Gen Labor Lgth Anes t hesia Del Locatn Provider FOB 04/04/21 Jones 39 live - full term Male epidur al [facility] Delivery Date: 04/04/21 Last Updated by: Maryellen Torrez PROM Visit Details Expected Delivery Route/Plan Labor Preferences- CB/BF classes: Denies labor support person: Vincent labor intervention preferences: pain management options preferred: Epidural cut cord/dad catch: cord : yes PP control planned: [] discussed possible routes of delivery and associated risks: [] special requests: warm compress to perineum, active perineal support during second phase. Plans Covid status: discussed Flu vaccine: discussed Tdap vaccine: declines Rhogam: na LARC form signed: yes Problem list reviewed and updated with the most current plan of care details and appropriate orders placed. Relevant counseling for the gestational age provided. Continue routine care and follow up unless otherwise noted in visit notes/problem list details OB Flowsheet Initial Weight: Not Recorded Date -?-?-?-?-?-?-?-?-?-?-?-?- EGA Weight BP Urine Prot -?-?-?-?-?-?-?-?-?-?-?-?- Glucose FHR FuHt Pres Dilation -?-?-?-?-?-?-?-?-?-?-?-?- Effaced St Visit Note 05/22/22 -?-?-?-?-?-?-?-?-?-?-?-?- 9w 2d 142 lb 100/70 -?-?-?-?-?-?-?-?-?-?-?-?- 180 -?-?-?-?-?-?-?-?-?-?-?-?- SM- 2.6cm cons w ith LMP 06/19/22 -?-?-?-?-?-?-?-?-?-?-?-?- 13w 2d 148 lb 4 oz 115/73 Nega tive -?-?-?-?-?-?-?-?-?-?-?-?- Negative 145 -?-?-?-?-?-?-?-?-?-?-?-?- SM- no vb crmapi ng 07/17/22 -?-?-?-?-?-?-?-?-?-?-?-?- 17w 2d 152 lb 8 oz 118/72 Nega tive -?-?-?-?-?-?-?-?-?-?-?-?- Negative 156 -?-?-?-?-?-?-?-?-?-?-?-?- MH-No Vb. Feels well. US is 07/31. Denies concerns 08/23/22 -?-?-?-?-?-?-?-?-?-?-?-?- 22w 4d 158 lb 115/76 Negative -?-?-?-?-?-?-?-?-?-?-?-?- Negative 145 23 -?-?-?-?-?-?-?-?-?-?-?-?- KW-+fm. no vb/cr amping. KW-+fm. no vb/cramping. no concerns. GTT next visit. discussed U S q 4 weeks start at 23 weeks 09/18/22 -?-?-?-?-?-?-?-?-?-?-?-?- 26w 2d 164 lb 8 oz 123/77 Nega tive -?-?-?-?-?-?-?-?-?-?-?-?- Negative 140 26 -?-?-?-?-?-?-?-?-?-?-?-?- SM- no vb lof go od fm no regular ctx 10/12/22 -?-?-?-?-?-?-?-?-?-?-?-?- 29w 5d 165 lb 2 oz 115/73 Nega tive -?-?-?-?-?-?-?-?-?-?-?-?- Negative 155 30 -?-?-?-?-?-?-?-?-?-?-?-?- JV- no lof, vagi nal bleeding, or cramping. wants to hold off on 39 week IOL and wait for spontaneous labor this time if possible. discussed risk of pp depression. 10/23/22 -?-?-?-?-?-?-?-?-?-?-?-?- 31w 2d 166 lb 4 oz 114/68 Nega tive -?-?-?-?-?-?-?-?-?-?-?-?- Negative 142 -?-?-?-?-?-?-?-?-?-?-?-?- MH-No Vb, LOF. G ood Fm. 11/06/22 -?-?-?-?-?-?-?-?-?-?-?-?- 33w 2d 167 lb 6 oz 108/72 Nega tive -?-?-?-?-?-?-?-?-?-?-?-?- Negative 130 34 -?-?-?-?-?-?-?-?-?-?-?-?- SM- no vb lof go od fm no regular ctx 11/20/22 -?-?-?-?-?-?-?-?-?-?-?-?- 35w 2d 172 lb 128/79 Negative -?-?-?-?-?-?-?-?-?-?-?-?- Negative 135 35 -?-?-?-?-?-?-?-?-?-?-?-?- Sm- no vb lof go od fm no regular ctx 11/27/22 -?-?-?-?-?-?-?-?-?-?-?-?- 36w 2d 174 lb 8 oz 120/77 Nega tive -?-?-?-?-?-?-?-?-?--?-?-?- Negative 132 36 -?-?-?-?-?-?-?-?-?-?-?-?- LC- no lof/vb/ct x. good fm. concerned with tissue integrity during delivery, wants warm compress and perineal support during delivery. reviewed CNM rolls gbs collected today. 12/04/22 -?-?-?-?-?-?-?-?-?-?-?-?- 37w 2d 177 lb 127/79 Negative -?-?-?-?-?-?-?-?-?-?-?-?- Negative 150 37 Cephalic 0 -?-?-?-?-?-?-?-?-?-?-?-?- LC- no lof/vb/ct x. good fm. gbs negative. having lalo hick, will increase po intake. no other concerns.cephalic on handheld ultrasound. ROS Cardiovascular Cardiovascular: Denies abdominal pain, chest pain, diaphoresis or dyspnea Respiratory/Chest Respiratory/Chest: Denies change in mental status, chest congestion, chest tightness, cough, shortness of breath at rest, shortness of breath with exertion, breast mass, breast pain, breast skin changes, breast swelling, change in breast shape or nipple discharge Genitourinary Genitourinary: Reports change in urinary stream Musculoskeletal Musculoskeletal: Reports none Integumentary Integumentary: Reports none Neurologic Neurologic: Reports none Psychiatric Psychiatric: Reports none Endocrine Endocrinology: Reports none Hematologic/Lymphatic Hematologic/Lymphatic: Reports none Allergic/Immunologic Allergic/Immunologic: Reports none Vital Signs Vital Signs Vital Signs: 12/10/22 03:09 12/10/22 03:09 12/10/22 03:09 Temperature 97.2 F L Pulse Rate 86 Blood Pressure 157/82 H BP Systolic 157 BP Diastolic 82 Pulse Ox 12/10/22 03:09 12/10/22 03:09 12/10/22 03:14 Temperature Pulse Rate 88 84 Blood Pressure BP Systolic BP Diastolic Pulse Ox 100 12/10/22 03:14 12/10/22 03:19 12/10/22 03:19 Temperature Pulse Rate 84 Blood Pressure BP Systolic BP Diastolic Pulse Ox 100 100 Physical Exam Const alert, oriented x3 and no apparent distress General Appearance: cooperative, comfortable and well kempt Orientation / Consciousness: awake and oriented to person Exam Limitations: no limitations HEENT normocephalic Neck full ROM Chest inspection of chest normal Resp normal respiratory effort, normal air movement and no retractions Effort and Inspection: able to speak in complete sentences and symmetric chest movement Cardio regular rate Peripheral Pulses: pulses 2+ throughout GI normal to inspection, nondistended, normoactive bowel sounds Inspection: gravid no CVA tenderness and appearance of the vagina normal External Female Exam: normal appearance of the urethra; Negative for external lesion OB / External & Speculum: external exam normal Manual OB Exam: estimated gestational size appropriate and presentation cephalic Uterus Palpation: Negative for uterus tender Extremity normal to inspection Skin no rashes or lesions noted Neuro deep tendon reflexes 2+ bilaterally and gait normal Motor Exam: strength 5/5 throughout and clonus absent Psych Activity / Motor Behavior: appropriate eye contact Speech: normal speech Labs Labs Labs: Blood Type B POSITIVE Antibody Screen NEGATIVE Hct 39.2 % (37-47) Hgb 13.4 g/dL (12.0-15.0) Pap Smear Negative Syphilis Total Ab Non-reactive Rubella IgG Antibody Reactive (Nonreactive) Hep Bs Antigen Non-Reactive (Nonreactive) Chlamydia DNA (AVERY) Negative (Negative) Neisseria gonorrhoeae DNA (AVERY) Negative (Negative) HIV 1&2 Antibody Non-Reactive (Nonreactive) Glucose 1 Hr 50 gm 117 mg/dL (70-140) Rhogam given: No Assessment & Plan (1) Spontaneous onset of labor: PLAN: Patient presents IAL, plan expectant management for , pitocin/AROM PRN if needed. Pain management: plans epidural. GBS negative. Management of any complications: none I have reviewed the [facility] and made any clinically relevant updates. updated on admission, exam and poc. low risk and agrees with primary midwifery management. (2) Supervision of high risk , antepartum: COMMENT: PRR , GEORGE 12/23/22 girl Miriam Goldman, Vincent (3) : QUALIFIERS: Weeks of gestation: 37 weeks Qualified Code(s): Z3A.37 - 37 weeks gestation of COMMENT: gbs neg. declined genetic, ntd, & carrier testing. anatomy nl (4) Hx of depression, currently : COMMENT: zoloft if needed support international website recommended along with counseling for anxiety. (5) Anxiety: COMMENT: no meds (6) Crohn's disease: QUALIFIERS: Gastrointestinal tract location: unspecified location Digestive disease complication type: unspecified complication Qualified Code(s): K50.919 - Crohn's disease, unspecified, with unspecified complications COMMENT: normal growth, per MFM no additional growth US needed unless clinically indicated.
--- NOTE | 2022-12-10 03:27 | EX.PCM.OBRPT ---
Assessment & Plan (1) (spontaneous vaginal delivery): COMMENT: 12/10 38 weeks girl:miriam. PLAN: s/p PPD # 0 1. routine post delivery care 2. breast feeding- support given 3. rh positive 4. rubella immune (2) Supervision of high risk , antepartum: COMMENT: PRR , GEORGE 12/23/22 girl Miriam Goldman, Vincent (3) : QUALIFIERS: Weeks of gestation: 37 weeks Qualified Code(s): Z3A.37 - 37 weeks gestation of COMMENT: gbs neg. declined genetic, ntd, & carrier testing. anatomy nl (4) Hx of depression, currently : COMMENT: zoloft if needed support international website recommended along with counseling for anxiety. (5) Anxiety: COMMENT: no meds (6) Crohn's disease: QUALIFIERS: Gastrointestinal tract location: unspecified location Digestive disease complication type: unspecified complication Qualified Code(s): K50.919 - Crohn's disease, unspecified, with unspecified complications COMMENT: normal growth, per MFM no additional growth US needed unless clinically indicated. Maternal Data Information GEORGE Calculator Estimated Delivery Date Method Current WG Current Estimate 12/23/22 LMP (Certain) 38w 1d Gestational age: 38+1 Vaginal Delivery Maternal Presentation Maternal Presentation: Active Labor Maternal Presentation: at 38+1 with intensifying contractions. budging bag, SROM at 0248 Operative Information Date of Procedure: 12/10/22 Pre-Operative Diagnosis: see problem list Post-Operative Diagnosis: Surgery / Procedure Performed: Spontaneous Vaginal Delivery Type of Anesthesia: None Estimated Blood Loss: 150 Time of Delivery: 02:53 Findings Description of Procedure: Patient began pushing and delivered the head in the OP presentation. The head was delivered atraumatically. The anterior and posterior shoulders delivered without complication followed by the rest of the infant and the was placed on the maternal abdomen. Delayed cord clamping was employed for approximately 60 seconds. Cord was clamped and cut and gentle traction was applied to the cord and the placenta delivered spontaneously immediately following it was noted to be intact with three-vessel cord. The perineum and vagina were inspected and found to have no lacerations. . EBL was 150cc. Patient and tolerated delivery well, entered recovery phase stable, bonding skin to skin Presentation: Vertex Amniotic Membrane Rupture Type: Spontaneous Time of Membrane Rupture: 0248 Amniotic Fluid Description: Clear Placental Delivery Description: Spontaneous Placenta Disposition: [facility] Cord Vessel Description: 3 Vessels Cord Entanglement: None Infant A Gender: Female (1 minute): 9 (5 minute): 9 Post Vaginal Delivery Medications Given After Delivery: IV Pitocin and IM Pitocin Episiotomy Description: None Laceration: None Addendum Addendum: CNM delivery
[2022-12-10] MEDS: Methylergonovine 0.2 MG/ML Ampul IM (03:45)
[2022-12-10 04:25] LABS: Syphilis Antibodies Non-reactive
[2022-12-10] MEDS: Benzocaine/Lanolin/Aloe Vera 1 SPRAY EACH TOPICAL (05:04)
[2022-12-10] MEDS: Naproxen 500 MG Tablet PO ×2 (05:05→16:18)
[2022-12-10] MEDS: 0.9% Saline Lock 10 ML Syringe IV (06:12)
--- NOTE | 2022-12-10 09:18 | DCINST_ITS ---
Discharge Instructions Diet Discharge Diet: No restrictions Activity Discharge Activity: May Not Drive and May Shower May resume sexual activity in: 6 weeks Weight Bearing Status: Full weight bearing Dressing / Incision Call your doctor if your incision/area has: Sudden Increased Bleeding, Increased Pain/ Swelling and Foul Smelling Discharge Call your doctor if you observe: Fever of 101 or Higher, Numbness or Tingling, Change in Color, Inability to urinate, Inability to have a bowel movement, Using more than 1 pad per hour, Shortness of breath, Dizziness, Fainting spells, Chest pain, Calf discomfort and Uncontrolled pain Follow Up Care Please Follow Up With: Aleshia Bear CNM When: 6 weeks , please call office to make an appointment. Congratulations on the of your baby girl Miriam!!! Test Results: Test results from this visit will be discussed in further detail at your follow- up appointment, if applicable. Discharge Plan Admission Admit Date/Time: 12/10/22 02:42 Attending Provider: Aleshia Bear Primary Care Provider: Care Physician,Emily Primary Discharge Orders/Prescriptions Prescriptions: No Action PNV-DHA 27 mg iron-1 mg -300 mg capsule PO Referrals / Follow Up: Care Physician,No Primary [Primary Care Provider] - Disposition Disposition (needs filled in before D/C Order can be placed): Home, Self Care
[2022-12-10] MEDS: Acetaminophen 500 MG Tablet 1000 MG PO (09:54)
--- NOTE | 2022-12-10 12:32 | NURSING ---
This RN taking over patient care at this time. Report received from Adam WALSH.
[2022-12-11 00:02] VITALS: BP 125/67; PULSE 84; PULSE 86; RESP 20; TEMP 36.6; O2SAT 97
[2022-12-11 03:34] VITALS: BP 135/61; PULSE 83; PULSE 84; RESP 21; TEMP 36.7; O2SAT 98
--- NOTE | 2022-12-11 07:15 | NURSING ---
bedside report given to Torin Mcdaniels RN who is assuming care of pt at this time
--- NOTE | 2022-12-11 08:00 | PCM.PN.OB ---
Subjective Subjective Patient doing well physically, voicing concerns of anxiety, having racing thoughts and inability to sleep. Tolerating PO. Ambulating and voiding without difficulty. Feeding well. Denies chest pain, shortness of breath, calf pain/swelling, fevers, chills, lightheadedness. Objective Data Objective Data Vital Signs: Vital Signs Temp Pulse Resp BP Pulse Ox O2 Del Method 98.0 F 83 21 H 135/61 H 98 Room Air 12/11/22 03:34 12/11/22 03:34 12/11/22 03:34 12/11/22 03:34 12/11/22 03:34 12/11/22 03:34 Oxygen Delivery Method Room Air Weight: 177 lb 7.554 oz Body Mass Index (BMI) 30.4 Intake & Output: Intake and Output for Last 24 Hours 12/09/22 12/10/22 12/11/22 23:59 23:59 23:59 Intake Total 261.67 / 261.67 Output Total 550 / 550 Balance -288.33 / -288.33 Lab / Micro Data 12/10/22 02:43 Physical Exam Const alert and no apparent distress Chest inspection of chest normal and inspection of breasts normal Resp normal respiratory effort GI normal to inspection, nondistended, normoactive bowel sounds GI Narrative: fundus firm, 2 below u. normal lochia Extremity normal to inspection, no calf tenderness and no pedal edema Skin no rashes or lesions noted Psych Mood & Affect: anxious Assessment & Plan (1) (spontaneous vaginal delivery): COMMENT: 12/10 38 weeks girl:aster. (2) Hx of depression, currently : COMMENT: zoloft if needed support international website recommended along with counseling for anxiety. PLAN: start on zoloft 25 mg today f/u in office by 2 weeks pp, call office if increase s/sx of depression. immediately is s/sx of SI, thoughts of harming infant. (3) Crohn's disease: QUALIFIERS: Digestive disease complication type: unspecified complication Gastrointestinal tract location: unspecified location Qualified Code(s): K50.919 - Crohn's disease, unspecified, with unspecified complications COMMENT: normal growth, per MFM no additional growth US needed unless clinically indicated. (4) Anxiety: COMMENT: no meds PLAN: Plan s/p PPD #1 1. routine post delivery care 2. breast feeding- support given 3. rh positive 4. rubella immune 5. d/c home today
[2022-12-11 08:48] VITALS: BP 119/71; PULSE 89; RESP 16; TEMP 37.1
[2022-12-11 08:49] VITALS: TEMP 37.1
[2022-12-11 08:50] VITALS: BP 119/71; PULSE 89
--- NOTE | 2022-12-11 10:31 | CASEMGMT ---
Social Work Assessment Labor and Delivery Unit Patient Address:[id number] [place] [address] Phone number: [phone] Date of Referral: 12/10/22 Time of Referral:? 1230 Referred By: Aleshia Bear Date of Intervention: ??12/11/22 Time of Intervention:? 944 Reason for Referral:? other,e hx of depression Sw completed chart review and acknowledges social work consult due to maternal history of depression. Sw presented to bedside, introduced self to parents and explained reason for sw involvement. Parents were polite, engaged in assessment and talked openly about maternal history of depression. When need presented itself for Mother of baby (MOB- Xiomara) to complete [place] Depression Scale, father of baby (FOB- Vincent) stepped out of room respectfully. History obtained from: medical records, MOB and FOB. ? Household composition: Currently residing in the home are parents, their older son (Jones, : 04/04/21) and now baby girl. Patient's parent/guardian status:?Parents state that they have been together for 6 years. They met while on a mission trip through their voodoo. While meeting with MOB privately she denied any concerns regarding domestic violence or intimate partner violence. ? Medical History: JOSHUA is 2, para 1- now 2. JOSHUA received routine care during with [facility]. JOSHUA delivered baby precipitous vaginal delivery at 38 weeks gestation. Baby girl, named Miriam Balderas, was born weighing 6lb 10oz and her apgars were 9 and 9 at one and five minutes of life respectfully. MOB states that she is and that is going well. ? Educational Status: Both parents are high school graduates. MOB has a college degree in X-ray biology specimen technician and [place]. FOB has a business degree. Financial Status: Both parents are gainfully employed outside of the home. FOB works for [employer] in [place]. MOB works parts chaser as an X-Ray tech at [employer]. Infant Supplies:?? Parents report they have obtained everything they need for baby including a safe sleep space, car seat, clothes, diapers, wipes and a breast pump. Childcare/Caregiver(s):? MOB is the primary caregiver to baby, and FOB when he is not at work. MOB states that if there are times when both parents are working, or need a fire prevention forester for whatever reason paternal grandparents live right next door and will be able to provide assistance. Transportation:?? No transportation barriers at this time. Both parents have drivers license and reliable transportation. Programs/Agencies Involved: ???No agency involvement at this time. JOSHUA states that she was previously connected to counseling at a local agency (Could not recall the name). Children Services/Legal Issues:??No prior children services involvement, no issues or concerns warranting referral at this time. ? Behavioral Health Issues: ??Mental Health History:??FOB denies history of mental health. JOSHUA states that she had a lot of anxiety and depression around 5 weeks after she had her son. MOB states that she would start to feel anxious at night and would be worried that she would not be able to fall asleep, to the point where she would be do worked up and anxious that she wouldn't be able to sleep. JOSHUA states that during that time she did not feel as though she was able to care for her son. JOSHUA stated that is when she got connected to counseling and started a low dose of Zoloft with her OBGYN provider. MOB states that then she just started to feel better. JOSHUA reports that she did have some anxiety last night, some fear/ feelings started to creep in surrounding the worry that she would not be able to sleep. JOSHUA stated that last night she was able to get some sleep, and feels fine today. JOSHUA did meet with her cash applications representative this morning and agreed to start low dose of Zoloft as a preventative measure. JOSHUA states that she really did not want to go on medication, but she also wants to be the best version of herself during this period. JOSHUA completed [place] Depression Screen, her score was a 9. Sw educated JOSHUA on what the score says and encouraged MOB to get connected to mental health supports during this period. JOSHUA said that she is surprised her score is that high when she feels as though she is feeling ok. Sw reminded JOSHUA that she was having some anxiety last night similar to the anxiety she felt after her son was born. MOB expressed understanding. Sw provided education on signs and symptoms of baby blues and depression to MOB and FOB. MOB states that FOB is a big support person for her and she always feels comfortable sharing her feelings with him. ? Substance Use History:??No substance use history prior to or during . Family History:?MOB denies family history of substance use or mental health history. ? Drug Screens: No drug screens observed in chart review. ? Family/Social Stressors:? No family stressors identified at this time. Parents are in good spirits, thankful baby is here and looking forward to being discharged today. Support Systems: MOB states that paternal grandparents live right next door and are big supports for their family. Both parents talked to members of their voodoo regarding baby blues and depression. Both parents state they received a lot of support from their voodoo family. Both sides of family are supportive. Depression/Shaken Baby/Safe Sleeping:?Sw educated parents and provided literature on baby blues and depression/ anxiety. Parents expressed understanding and ways they can support each other during this time. Sw educated parents on shaken baby prevention and ABCs of safe sleep. Parents expressed understanding on these topics. c.?? ASSESSMENT:?MOB admitted due to delivering second baby. Baby was born via precipitous vaginal delivery. Parents state they barely made it to the hospital before baby was born. Parents were observed to provide tender care to baby during assessment. Parents were open regarding maternal history with depression. FOB very willing to help MOB and provide support. MOB states that FOB and other family members are strong support for her. Parents were open and receptive to sw involvement and support. MOB score was 9 on [place]- MOB encouraged to follow up with community mental health supports. PLAN:? MOB and baby to be discharged today when medically ready. ?No other services requested or indicated. Josemanuel Major, TRANSITIONS RN CARE COORDINATOR, LACE INSPECTOR
== END 2022-12-11 11:25 | disposition home or self-care (01) | DRG 806 ==
PROVIDERS: Admitting Provider Registered Nurse; Referring Provider Registered Nurse; Visit Provider Registered Nurse
DX: O42.92 Full-term premature rupture of membranes, unspecified as to length of time between rupture and onset of labor (principal); Z37.0 Single live birth; K50.919 Crohn's disease, unspecified, with unspecified complications; O99.62 Diseases of the digestive system complicating childbirth; Z3A.38 38 weeks gestation of pregnancy; Z87.59 Personal history of other complications of pregnancy, childbirth and the puerperium
CPT/HCPCS: 59025; 59050; 85025; 86780; 86850; 86900; 86901; 99221; J7120; A4216; G0378

== ENCOUNTER → 2023-02-15 | Outpatient (CLI) | payer OTHER, SELFPAY ==
--- NOTE | 2023-02-15 09:25 | US_ITS ---
STUDY: ULTRASOUND BREAST - LEFT REASON FOR EXAM: Female, 27 years old. Left lateral breast lump. Patient is currently breast-feeding. TECHNIQUE: Axial and longitudinal images of the LEFT breast were performed with a high resolution ultrasound transducer. # OF IMAGES: 11 COMPARISON: None. FINDINGS: LEFT Breast: The lateral aspect of the left breast was examined with ultrasound. There is dense fibroglandular tissue. No solid or cystic mass lesion is seen. US/Breast Limited Unilateral IMPRESSION: Dense fibroglandular tissue. No solid or cystic mass lesion is seen. ASSESSMENT CATEGORY: BIRADS Category 1: Negative. A letter regarding these results will be sent to the patient by the facility within 30 days. Electronically Signed: Darrell Jenkins MD at 15:06 EDT ,
[2023-02-15 11:04] LABS: T4 Free Direct 0.72 ng/dL (0.76-1.46); Thyroid Stim Hormone (TSH) 1.01 uIU/mL (0.358-3.74)
== END | disposition home or self-care (01) ==
PROVIDERS: Referring Provider Registered Nurse; Visit Provider Registered Nurse
DX: F41.9 Anxiety disorder, unspecified (principal); N63.23 Unspecified lump in the left breast, lower outer quadrant
CPT/HCPCS: 36415; 76642; 84439; 84443

== ENCOUNTER → 2024-11-07 | Outpatient (CLI) | payer OTHER, SELFPAY ==
[2024-11-07 17:09] LABS: Absolute Lymphocyte Count 1.67 X10^3/uL (0.83-4.51); Absolute Neutrophil Count 5.6 X10^3/uL (2.0-7.7); Basophil# 0.07 X10^3/uL; Basophil% 0.9 % (0-1); Eosinophil# 0.23 X10^3/uL; Eosinophils% 2.8 % (0-5); Hematocrit 38.4 % (37-47); Hemoglobin 12.8 g/dL (12.0-15.0); Lymphocyte # 1.67 X10^3/ul (0.83-4.51); Lymphocyte % 20.6 % (19-41); Mean Corp Hgb Conc 33.3 g/dL (32-36); Mean Corpuscular Hgb 28.4 pg (27.0-32.0); Mean Corpuscular Volume 85.1 fL (81-99); Mean Platelet Vol. 11.1 fl (6.2-12.0); Monocyte# 0.53 X10^3/uL; Monocyte% 6.5 % (0-10); NRBC Flagged by Analyzer 0 % (0-5); Neutrophil # 5.57 X10^3/uL (2.7-7.7); Neutrophil % 68.7 % (47-70); Platelet Count 304 K/mm3 (150-450); RBC Distribution Width CV 12.8 % (11.6-14.6); RBC Distribution Width SD 39.5 fl (35.1-43.9); Red Blood Count 4.51 M/mm3 (4.2-5.4); White Blood Count 8.1 K/mm3 (4.4-11.0)
[2024-11-07 17:42] LABS: HIV Nonreactive (Nonreactive); Hepatitis B Surface Antigen Nonreactive (Nonreactive); Hepatitis C Antibody Nonreactive (Nonreactive); Rubella IgG REAC (Nonreactive); Syphilis Antibodies Nonreactive (Nonreactive)
[2024-11-11 03:07] LABS: Chlamydia By Nucleic Acid AMP Negative (Negative); Gonococcus By Nucleic Acid AMP Negative (Negative)
== END | disposition home or self-care (01) ==
PROVIDERS: Referring Provider Registered Nurse; Visit Provider Registered Nurse
DX: Z34.90 Encounter for supervision of normal pregnancy, unspecified, unspecified trimester (principal)
CPT/HCPCS: 36415; 85025; 86703; 86762; 86780; 86803; 86850; 86900; 86901; 87086; 87088; 87340; 87491; 87591

== ENCOUNTER → 2024-12-03 | Outpatient (CLI) | payer OTHER, SELFPAY | END | disposition home or self-care (01) | PROVIDERS: Referring Provider Obstetrics & Gynecology; Visit Provider Obstetrics & Gynecology | DX: R94.6 Abnormal results of thyroid function studies (principal) | CPT/HCPCS: 36415; 84439; 84443 ==

== ENCOUNTER → 2025-03-11 | Outpatient (CLI) | payer OTHER, SELFPAY ==
[2025-03-11 12:19] LABS: Hematocrit 33.9 % (37-47); Hemoglobin 11.5 g/dL (12.0-15.0); Immature Granulocytes Count 0.080 X10^3/uL (0.0-0.0); Mean Corp Hgb Conc 33.9 g/dL (32-36); Mean Corpuscular Volume 87.1 fL (81-99); Mean Platelet Vol. 10.7 fl (6.2-12.0); NRBC Flagged by Analyzer 0 % (0-5); Platelet Count 262 K/mm3 (150-450); RBC Distribution Width CV 12.9 % (11.6-14.6); RBC Distribution Width SD 40.9 fl (35.1-43.9); Red Blood Count 3.89 M/mm3 (4.2-5.4); White Blood Count 8.3 K/mm3 (4.4-11.0)
[2025-03-11 13:08] LABS: Glucose Challenge Gest 1H 50g 105 mg/dL (70-140); HIV Nonreactive (Nonreactive); Syphilis Antibodies Nonreactive (Nonreactive)
== END | disposition home or self-care (01) ==
PROVIDERS: Advanced Practice Midwife; Visit Provider Nurse Practitioner Women's Health
DX: Z34.82 Encounter for supervision of other normal pregnancy, second trimester (principal)
CPT/HCPCS: 36415; 82950; 85025; 86703; 86780

== ENCOUNTER 2025-05-09 04:44 | Outpatient (CLI) | payer OTHER, SELFPAY ==
--- OUTSIDE RECORDS SUMMARY | 2025-05-09 04:49 | XMS RPT_ITS | CCD ---
Author Organization [facility] Care Team Providers Care Chemical Equipment Repairer Name Role Phone Dao CUNNINGHAM, Mercedes Unavailable Dante Lambert MD Unavailable Lilia Tovar MD Primary Care Provider Anni Horton Primary Care Provider Mercedes Dc MD Unavailable Dante Lambert MD Unavailable Lilia Tovar MD Primary Care Provider Care Physician, No Primary Primary Care Provider Unavailable Care Physician, No Primary Referring Provider Un available Dr. Lilia Tovar Attending Provider [phone] Anni Horton Primary Care Provider [phone] Care Physician, No Primary Primary Care Provider Unavailable Care Physician, No Primary Referring Provider Un available Dr. Lilia Tovar Attending Provider [phone] HENOK Lehman NP Attending Provider [phone] JAYNE Sweet Attending Provider [phone] Care Physician, No Primary Primary Care Provider Unavailable Care Physician, No Primary Referring Provider Un available Dr. Lilia Tovar Attending Provider [phone] Dr. Anni Harman Attending Provider [phone] HENOK Lehman NP Attending Provider [phone] JAYNE Bear Attending Provider JAYNE Bear Admit Provider JAYNE Bear Referring Provider JAYNE Bear Other Provider JOIE PAINTER [facility], DREW Primary Care Physician [phone] RUTH SOTO Attending Unavailable BALTES [employer] [facility], DREW Primary Care Unavailabl e MERCEDES WRAY, DR ABRIL Conner Attending Unavailabl e BALFLORENTIN [employer], DREW Primary Care Unavailabl e Anni Horton Primary Care Provider Ruth Soto Unavailable JULIEN CAMERON Referring Unavailable ANNI HORTON Primary Care Unavailable JULIO MACEDO Attending Unavailable BRITTANY [employer], RUTH Mohan Attending Unava ilable BALFLORENTIN PA[employer] [facility], DREW Primary Care Unavailabl e BALTES PAINTER [facility], DREW Primary Care Unavailabl e BRITTANY [employer] [facility], RUTH Mohan Attending Unava ilable Care Physician, No Primary Primary Care Provider Unavailable Cindy Beth RN Attending Provider Unavailabl e Care Physician, No Primary Referring Provider Un available Aleshia Bear CNM Attending Provider [phone] Aleshia Bear CNM Referring Provider [phone] Dr. Anni Harman DO Attending Provider Dr. Anni Harman DO Referring Provider Stephany Fierro Attending Provider [phone] NO PRIMARY CARE, MD Primary Care Unavailable SHANA BRUCE Attending Unavailable ANNI NAVAS Referring Unavailab le Care Physician, No Primary Primary Care Physicia n Unavailable Cindy Beth RN Attending Physician Unavailab Aleshia Helm CNM Attending Physician [phone] Dr. Anni Harman DO Attending Physician Stephany Fierro Attending Physician [phone] Felicita Sweet CNM Attending Physician [phone] Felicita Sweet Attending Unavailable Care Physician, No Primary Primary Care Unava ilable Care Physician, No Primary Referring Unava ilable Cindy Beth Attending Unavailable Care Physician, No Primary Primary Care Unava ilable [place] CLINICAL CODER, Stephany Attending Unavailable Care Physician, No Primary Primary Care Unava ilable Care Physician, No Primary Referring Unava ilable Care Physician, No Primary Primary Care Unava ilable Aleshia Bear Attending Unavailable Care Physician, No Primary Referring Unava ilable Care Physician, No Primary Referring Unava ilable Care Physician, No Primary Primary Care Unava ilable Anni Harman Attending Unavailabl e Care Physician, No Primary Referring Unava ilable Care Physician, No Primary Primary Care Unava ilable Aleshia Bear Attending Unavailable Care Physician, No Primary Primary Care Unava ilable [place] CLINICAL CODER, Stephany Attending Unavailable Care Physician, No Primary Referring Unava ilable Care Physician, No Primary Primary Care Unava ilable [place] CLINICAL CODER, Stephany Attending Unavailable Anni Harman Referring Unavailabl e Care Physician, No Primary Primary Care Unava ilable Anni Harman Attending Unavailabl e Care Physician, No Primary Primary Care Unava ilAleshia Mcghee Attending Aleshia Carter Referring Unavailable Allergies Allergy Classification Reported Allergen(s) Allergy Type Date of Onset Reaction(s) Facility (20 sources) Penicillins; Translations: [PENICILLINS] [facility] (2 sources) Penicillin; Translations: [penicillin] Drug Allergy Weal (disorder) [facility] Medications Current Medications Medication Drug Class(es) Dates Sig (Normalized) Sig (Original) acetylcysteine 600 mg oral capsule (7 sources) Antidote, Mucolytic, Antidote for Acetaminophen Overdose Start: 10-24-2024 take 1 capsule by mouth once daily Acetylcysteine (Nac) 600 mg capsule Active 600 mg PO daily October 24, 2024 12:00am Complies with drug therapy bacillus coagulans [id number] unt oral tablet (7 sources) Start: 10-24-2024 Bacillus Coagulans 800 million cell tablet Active NMA PO October 24, 2024 12:00am Complies with drug therapy Calc-D3-Mag Cit,Ox-K2-Herb 353 (Alive Calcium-Vitamin D3-K2) 300 mg-25 mcg- 66 mg-37.5 mcg tablet (7 sources) Start: 10-24-2024 Calc-D3-Mag Cit,Ox-K2-Herb 353 (Alive Calcium-Vitamin D3-K2) 300 mg-25 mcg- 66 mg-37.5 mcg tablet Active {tbl} PO October 24, 2024 12:00am Complies with drug therapy Start: 10-24-2024 Calc-D3-Mag Ci t,Ox-K2-Herb 353 (Alive Calcium-Vitamin D3-K2) 300 mg-25 mcg- 66 mg-37.5 mcg tablet Active {tbl} PO October 24, 2024 12:00am magnesium citrate 125 mg oral capsule (7 sources) Start: 10-24-2024 take 1 capsule by mouth once daily Magnesium Citrate 125 mg capsule Active 125 mg PO daily October 24, 2024 12:00am Complies with drug therapy mesalamine 1200 mg delayed release oral tablet (12 sources) Aminosalicylate Start: 03-18-2014 LIALDA 1.2 G T BEC EC tablet Multivit 56-Mgvh-Dtvgzg 1-Dha (Pnv-Dha) 27 mg iron-1 mg -300 mg capsule (20 sources) Start: 05-11-2022 Multivit 79-Vujy-Qpeeok 1-Dha (Pnv-Dha) 27 mg iron-1 mg -300 mg capsule Active NMA PO May 11, 2022 1:00am Complies with drug therapy Start: 05-11-2022 Multivit 47-Ir on-Folate 1-Dha (Pnv-Dha) 27 mg iron-1 mg -300 mg capsule Active NMA PO May 11, 2022 1:00am Start: 05-11-2022 Multivit 47-Ir on-Folate 1-Dha (Pnv-Dha) 27 mg iron-1 mg -300 mg capsule Active CAP PO May 11, 2022 1:00am Start: 05-11-2022 Multivit 47-Ir on-Folate 1-Dha (Pnv-Dha) 27 mg iron-1 mg -300 mg capsule Active CAP PO May 11, 2022 12:00am Start: 08-31-2020 End: 06-06-2021 Multivit 60-Qult-Kyjajh 1-Dh a (Pnv-Dha) 27 mg iron-1 mg -300 mg capsule Discontinued 1 NMA PO DAILY August 31, 2020 12:00am June 06, 2021 3:50pm Check with primary doctor Start: 08-31-2020 End: 06-06-2021 take 1 capsule by mouth once daily Multivit 63-Sqks-Nghoia 1-Dha (Pnv-Dha) 27 mg iron-1 mg -300 mg capsule Discontinued 1 CAP PO DAILY August 31, 2020 12:00am June 06, 2021 3:50pm Start: 08-31-2020 End: 06-06-2021 take 1 capsule by mouth once daily Multivit 99-Ptga-Jacfbx 1-Dha (Pnv-Dha) 27 mg iron-1 mg -300 mg capsule Discontinued 1 CAP PO DAILY August 30, 2020 11:00pm June 06, 2021 2:50pm multivit with calcium,iron,m in (DAILY VITAMINS FOR WOMEN ORAL) (7 sources) take 50 mg by mouth once daily multivit with calcium,iron,min (DAILY VITAMINS FOR WOMEN ORAL) Take 50 mg by mouth once daily. Active take 50 mg by mouth once daily m ultivit with calcium,iron,min (DAILY VITAMINS FOR WOMEN ORAL) Take 50 mg by mouth once daily. 0 Active Comment on above: Take 50 mg by mouth once daily. Multivitamin preparation (2 sources) Start: 01-02-2024 take 1 tablet by mouth once daily Multivitamin Dose = 1 tab(s), Oral, Daily, 0 Refill(s) Start Date: 01/02/24 Status: Ordered Repeat number: 1 Start: 01-02-2024 take 1 tablet by marion th once daily Multivitamin Dose = 1 tab(s), Oral, Daily, 0 Refill(s) Start Date: 01/02/24 Status: Ordered ondansetron 4 mg Red cell distributio n width determination [facility] End: 08-06-2021 SARS CoV-2 RT-PCR SARS CoV-2 RT-PCR Microbiology Timed Encounter for screening for COVID-19 1 Occurrences starting 08/06/2021 until 08/06/2021 [facility] Work Phone: Comment on above: 1 Occurrences startskyler fuentes 08/06/2021 until 08/06/2021 End: 08-07-2021 SARS CoV-2 RT-PCR [facility] Work Phone: Comment on above: 1 Occurrences starti ng 08/07/2021 until 08/07/2021 End: 08-30-2021 SARS CoV-2 RT-PCR [facility] Work Phone: Comment on above: 1 Occurrences starti ng 08/30/2021 until 08/30/2021 End: 09-15-2021 SARS CoV-2 RT-PCR [facility] Work Phone: Comment on above: 1 Occurrences starti ng 09/15/2021 until 09/15/2021 End: 09-25-2021 SARS CoV-2 RT-PCR [facility] Work Phone: Comment on above: 1 Occurrences starti ng 09/25/2021 until 09/25/2021 End: 10-09-2021 SARS CoV-2 RT-PCR SARS CoV-2 RT-PCR Microbiology Timed Encounter for screening for COVID-19 1 Occurrences starting 10/09/2021 until 10/09/2021 [facility] Work Phone: Comment on above: 1 Occurrences starti ng 10/09/2021 until 10/09/2021 End: 11-01-2021 SARS CoV-2 RT-PCR [facility] Work Phone: Comment on above: 1 Occurrences starti ng 11/01/2021 until 11/01/2021 End: 11-14-2021 SARS CoV-2 RT-PCR [facility] Work Phone: Comment on above: 1 Occurrences starti ng 11/14/2021 until 11/14/2021 SURGICAL PATHOLOGY [facility] Work Phone: Comment on above: Release Upon Mikyin g for 1 Occurrences starting 04/19/2023, 1 completed Urine culture [facility] Immunizations Immunization Date Immunization Notes Care Provider Fa tanika 04-02-2020 influenza virus vacc ine, unspecified formulation Mona Vela LPN [facility] 01-08-2018 Human Papillomavirus 9-valent vaccine Anni Horton Work Phone: [facility] 01-08-[address] ABRIL LONG DO [facility] 05-29-2017 human papilloma viru s vaccine, quadrivalent Anni Horton Work Phone: [facility] 05-29-[address] ABRIL LONG DO [facility] 03-27-2017 Human Papillomavirus 9-valent vaccine Anni Horton Work Phone: [facility] 03-27-[address] ABRIL LONG DO [facility] 03-27-2017 influenza virus vacc ine, unspecified formulation DR ABRIL LONG DO [facility] 03-27-2017 influenza, injectabl e, quadrivalent, contains preservative Anni Horton Work Phone: [facility] 04-07-2014 Influenza Vaccine 0. 5 ML >= 9 Yr Quadrivalent MFM/Nephrology COMMERCIAL Anni Smith MD Work Phone: [facility] 04-07-2014 influenza, injectabl e, quadrivalent, preservative free Anni Horton Work Phone: [facility] 07-08-2009 tetanus toxoid, redu sanjeev diphtheria toxoid, and acellular pertussis vaccine, adsorbed Anni Smith MD Work Phone: [facility] 10-16-2007 varicella virus vaccine Ale Smith MD Work Phone: [facility] 06-07-2000 diphtheria, tetanus toxoids and acellular pertussis vaccine Anni Smith MD Work Phone: [facility] 06-07-2000 diphtheria, tetanus toxoids and acellular pertussis vaccine, unspecified formulation Anni Horton Work Phone: [facility] 06-07-2000 measles, mumps and rubella virus vaccine Anni Smith MD Work Phone: [facility] 06-07-2000 measles/mumps/rubell a virus vaccine DR ABRIL LONG DO [facility] 06-07-2000 poliovirus vaccine, inactivated Anni Smith MD Work Phone: [facility] 02-02-1997 varicella virus vaccine Ale Smith MD Work Phone: [facility] 04-28-1996 diphtheria, tetanus toxoids and acellular pertussis vaccine Anni Smith MD Work Phone: [facility] 04-28-1996 diphtheria, tetanus toxoids and acellular pertussis vaccine, unspecified formulation DR ABRIL LONG DO [facility] 04-28-1996 diphtheria, tetanus toxoids and pertussis vaccine Anni Horton Work Phone: [facility] 04-28-1996 haemophilus influenz ae type b vaccine, HbOC conjugate Anni Horton Work Phone: [facility] 04-28-1996 haemophilus influenz ae type b vaccine, PRP-T conjugate Anni Smith MD Work Phone: [facility] 01-22-1996 measles, mumps and rubella virus vaccine Anni Smith MD Work Phone: [facility] 01-22-1996 measles/mumps/rubell a virus vaccine DR ABRIL LONG DO [facility] 08-01-1995 hepatitis B pediatri c vaccine DR ABRIL LONG DO [facility] 08-01-1995 hepatitis B vaccine, pediatric or pediatric/adolescent dosage Anni Smith MD Work Phone: [facility] 06-20-1995 diphtheria, tetanus toxoids and acellular pertussis vaccine Anni Smith MD Work Phone: [facility] 06-20-1995 diphtheria, tetanus toxoids and acellular pertussis vaccine, unspecified formulation DR ABRIL LONG DO [facility] 06-20-1995 diphtheria, tetanus toxoids and pertussis vaccine Anni Horton Work Phone: [facility] 06-20-1995 haemophilus influenz ae type b vaccine, HbOC conjugate Anni Horton Work Phone: [facility] 06-20-1995 haemophilus influenz ae type b vaccine, PRP-T conjugate Anni Smith MD Work Phone: [facility] 06-20-1995 poliovirus vaccine, inactivated Anni Smith MD Work Phone: [facility] 06-20-1995 trivalent poliovirus vaccine, live, oral Anni Horton Work Phone: [facility] 04-25-1995 diphtheria, tetanus toxoids and acellular pertussis vaccine Anni Smith MD Work Phone: [facility] 04-25-1995 diphtheria, tetanus toxoids and acellular pertussis vaccine, unspecified formulation DR ABRIL LONG DO [facility] 04-25-1995 diphtheria, tetanus toxoids and pertussis vaccine Anni Horton Work Phone: [facility] 04-25-1995 haemophilus influenz ae type b vaccine, HbOC conjugate Anni Horton Work Phone: [facility] 04-25-1995 haemophilus influenz ae type b vaccine, PRP-T conjugate Anni Smith MD Work Phone: [facility] 04-25-1995 poliovirus vaccine, inactivated Anni Smith MD Work Phone: [facility] 04-25-1995 trivalent poliovirus vaccine, live, oral Anni Horton Work Phone: [facility] 02-26-1995 diphtheria, tetanus toxoids and acellular pertussis vaccine Anni Smith MD Work Phone: [facility] 02-26-1995 diphtheria, tetanus toxoids and acellular pertussis vaccine, unspecified formulation DR ABRIL LONG DO [facility] 02-26-1995 diphtheria, tetanus toxoids and pertussis vaccine Anni Horton Work Phone: [facility] 02-26-1995 haemophilus influenz ae type b vaccine, HbOC conjugate Anni Horton Work Phone: [facility] 02-26-1995 haemophilus influenz ae type b vaccine, PRP-T conjugate Anni Smith MD Work Phone: [facility] 02-26-1995 hepatitis B pediatri c vaccine DR ABRIL LONG DO [facility] 02-26-1995 hepatitis B vaccine, pediatric or pediatric/adolescent dosage Anni Smith MD Work Phone: [facility] 02-26-1995 poliovirus vaccine, inactivated Anni Smith MD Work Phone: [facility] 02-26-1995 trivalent poliovirus vaccine, live, oral Anni Horton Work Phone: [facility] 1994 hepatitis B pediatri c vaccine DR ABRIL LONG DO [facility] 1994 hepatitis B vaccine, pediatric or pediatric/adolescent dosage Anni Smith MD Work Phone: [facility] Payers Date Payer Category Payer Private Health Insurance [id number] 2024 Self-pay [id number] 2024 Private Health Insurance [id number] 2023 Private Health Insurance [id number] 2022 Private Health Insurance [id number] 2021 Unknown MMO MMO ANASTASIA [id number] 2021-Present [phone] [address] [address] [place] [address] PPO [id number] 2018 Unknown [employer] [facility] MMO SUPERMED PPO [id number] 2018-Present [address] [place] [address] [id number] 1994 Unknown [id number] 7 1994 Unknown [id number] 7 1994 Unknown [id number] 7 1994 Unknown [id number] 7 1994 Unknown [id number] 9 Unknown [employer] [place] [id number] Unknown [id number] 2 Unknown [id number] 2 Unknown [id number] 2 Unknown [id number] 2 Unknown [id number] 2 Unknown [id number] 2 Unknown [id number] 2 Unknown [id number] 2 Unknown [id number] 2 Unknown [id number] 2 Social History Date Type Detail Facility Start: 01-31-2013 End: 10-24-2024 Tobacco smoking status NHIS Never smoked tobacco [facility] Start: 01-05-2020 Alcohol intake Not Asked [facility] Start: 01-05-2020 End: 04-18-2020 Alcohol intake [facility] Start: 1995 Sex Assigned At Not on file A [facility] Start: 10-13-2015 Tobacco use and exposure Smoke less tobacco non-user [facility] Start: 06-15-2020 End: 04-19-2023 Alcohol intake Ex-drinker (finding) [facility] Start: 06-15-2020 History SDOH Alcohol Frequency 1 [facility] Start: 03-04-2018 History SDOH Alcohol Comment social [facility] Start: 08-14-2021 End: 08-24-2021 Exposure to SARS-CoV-2 (event) Not sure [facility] Start: 05-22-2022 End: 12-10-2022 Tobacco smoking status NHIS Unknown if ever smoked [facility] Start: 1995 Sex Assigned At Female W [facility] Start: 04-18-2020 End: 06-15-2020 Alcohol Use Disorder Identification Test - Consumption [AUDIT-C] [facility] How often to you hav e a drink containing alcohol? Never [facility] Average Number of Drinks Not on file [facility] Start: 11-06-2018 Sex Female (finding) [facility] Goals Date Patient Goal Desired Activity /State Functional Status Date Assessment Result Facility 01-04-2024 Functional Status Up ad angela [facility] 01-04-2024 Functional Status [facility] Mental Status Date Assessment Result Facility 01-04-2024 Mental Status Orientation Oriented x 4 [facility] 01-04-2024 Mental Status [facility] Clinical Notes 02-13-2017 to 02-16-2025 Note Date & Type Note Facility 02-16-2025 Progress note [facility] 01-21-2025 Progress note [facility] 12-03-2024 Progress note [facility] 12-03-2024 Progress note Note Date/Time December 03, 2024 2:19pm [facility] [address], [address] [place] [address] OFFICE VISIT Date of Service: 12/03/24 MR#: [id number] Acct: [id number] Name: XIOMARA NULL Rep #: [id number] : 1995 Provider: Dr. 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: No Is patient in pain?: No Allergies Penicillins Allergy (Intermediate, Verified 12/03/24 13:50) Hives Medications ?Medication ?Instructions ?Recorded ?Confirmed ?Type multivitamin no.47-iron fum 27 cap PO 12/03/24 History mg-folate no.1 1 mg-dha 300 mg capsule (PNV-DHA) Bacillus coagulans 800 million cell PO 10/24/24 History cell tablet acetylcysteine 600 mg capsule (NAC) 600 mg PO QDAY 12/03/24 History calcium 300 mg-D3 25 mcg-magnesium tab PO 10/24/24 History 66 mg-K2 37.5 mcg-herbal tablet (Alive Calcium-Vitamin D3-K2) magnesium citrate 125 mg capsule 125 mg PO QDAY 12/03/24 History zinc sulfate 66 mg tablet (Zinc-15) 66 mg PO QDAY 10/1212/03/24 History Last Menstrual Period: 09/05/24 Zika: Zika virus screening: Negative : No PFSH PFSH Medical History depression Anxiety Crohn's disease Family History Father Hypertension Brother Hypertension Mother Thyroid disorder Grandfather Cancer Leukemia Aunt Cancer Leukemia Uncle Cancer Leukemia Aunt Liver cancer Social History adopted: No household members: spouse and children housing: house number of children: 2 current occupation: [employer] current occupational exposures/hazards: No pets and animals: Yes pets and animals: dog(s) history of recent travel: No sexually active: Yes Smoking Status: Never smoker second hand exposure: No alcohol intake: never substance use type: does not use diet: gluten free well-balanced diet: daily or most days caffeine: Yes Type: coffee Number of servings: 1 eating out: 1-3 times/week during the past year weight has: remained stable what type of physical activity do you participate in: walking and weight training frequency: 5-6 times per week duration: 30-45 minutes/day morena/mormonism: Yazidism seatbelt use: always do you feel safe at home: Yes additional social history: : Vincent melgar History 3 Elective abortions Hx Para 2 Spontaneous abortions 0 Hx # Term Pregnancies 2 Ectopic pregnancies Hx # Pregnancies Multiple births # of living children 2 Past Pregnancies Del. Date Name GA/Weeks Outcome Route Bth Weight Infant Gen Labor Lgth Anesthesia Del [facility] Provider FOB 04/04/21 Jones 39 live - full term 7lbs 10oz Male ep idural [facility] SM Vincent 12/10/22 Miriam 38 live - full term 6lbs 10oz Female none [facility] Aleshia Bear CNIna Kaur Delivery Date: 04/04/21 Last Updated by: Maryellen Torrez PROM Delivery Date: 12/10/22 Last Updated by: Linda Scruggs see problem list for complications. HPI 13wk OB Details: XIOMARA NULL is a 28 year old who presents for routine OB visit. OB Visit GEORGE Calculator Estimated Delivery Date Method Current WG Current Estimate 06/12/25 LMP (Certain) 12w 5d Other Estimates 06/06/25 Ultrasound #2 13w 4d Expected Delivery Route/Plan Labor Preferences- CB/BF classes: [] labor support person: [] labor intervention preferences: [] pain management options preferred: [] cut cord/dad catch: [] : [] PP control planned: [] discussed possible routes of delivery and associated risks: [] special requests: [] Specific Issue/Plans Covid status: [] Flu vaccine: [] Tdap vaccine: [] Rhogam: [] LARC form signed: [] Problem list reviewed and updated with the most current plan of care details and appropriate orders placed. Relevant counseling for the gestational age provided. Continue routine care and follow up unless otherwise noted in visit notes/problem list details Initial Weight: 151 lb Date -?-?-?-?-?-?-?-?-?-?-?-?- EGA Weight BP Urine Prot -?-?-?-?-?-?-?-?-?-?-?-?- Glucose FHR FuHt Pres Dilation -?-?-?-?-?-?-?-?-?-?-?-?- Effaced St Visit Note 11/07/24 -?-?-?-?-?-?-?-?-?-?-?-?- 9w 0d 151 lb 4 oz (+4 oz) 121/76 -?-?-?-?-?-?-?-?-?-?-?-?- 175 -?-?-?-?-?-?-?-?-?-?-?-?- LC-2.71cm con wi th LMP. declines nipt. 12/03/24 -?-?-?-?-?-?-?-?-?-?-?-?- 12w 5d 153 lb 2 oz (+2 lb 2 oz) 117/76 -?-?-?-?-?-?-?-?-?-?-?-?- 165 -?-?--?-?-?-?-?-?-?-?-?-?- JV- CRL today is measuring 13 weeks 4 days however first scan per LC was measuring closer to LMP. no change in due date but did have an abnormal free T4 back in 2022 that needs repeated today. ACOG First Trimester First Trimester: Desire for , Alcohol, Tobacco Cessation, Illicit/Recreational Drug/Substance Use, Intimate Partner Violence, Barriers to care, Unstable Housing, Communication Barriers, Environmental/Work Hazards, Anticipated Course of Care, Toxoplasmosis Precations, Use of Any medications, Sexual activity, Exercise, Dental Care, Sauna/Hot tub use, Seat Belt use, Childbirth classes/Hospital facilities, Travel, Indications for Ultrasound and Screening for Aneuploidy; Discussed Second Trimester Second Trimester: Signs and Symptoms of Labor, Selecting a care provider, Reproductive Life Planning & Contreception, Care Planning, Depression/Anxiety and Intimate Partner Violence; Discussed Tobacco Cessation Third Trimester Third Trimester: Pain Management Plans, Labor support person(s), Immediate Larc, Signs and Symptoms of Preeclampsia, Feeding No , [place] Education, Family Medical Leave or Disability Forms and Depression; Discussed Circumcision preference and Discussed Intimate Partner Violence Coding Level of Care Code OB Routine Diagnoses Supervision of normal Z34.90 12 weeks gestation of Z3A.12 Weeks of gestation: 12 weeks History of depression, currently O99.891; Z86.59 Crohn's disease with complication, unspecified gastrointestinal tract location K50.919 Digestive disease complication type: unspecified complication Gastrointestinal tract location: unspecified location Abnormal thyroid uptake study R94.6 Assessment and Plan Assessment and Plan (1) Supervision of normal : Status: Acute Comment: , GEORGE 06/12/25; PC: Bob, : Vincent (2) : Status: Acute Qualifiers: Weeks of gestation: 12 weeks Qualified Code(s): Z3A.12 - 12 weeks gestation of Comment: Discussed genetic/carrier testing - undecided (3) History of depression, currently : Status: Acute Comment: Was on Zoloft, no meds currently; Stable may desire to restart immediately pp (4) Crohn's disease: Status: Chronic Qualifiers: Digestive disease complication type: unspecified complication Gastrointestinal tract location: unspecified location Qualified Code(s): K50.919 - Crohn's disease, unspecified, with unspecified complications (5) Abnormal thyroid uptake study: Status: Acute Orders: Orders POC Urinalysis 2 Dip (Clinic) Today Thyroid Stim Hormone (TSH) Today R94.6 - Abnormal results of thyroid function studies Free T4 Today R94.6 - Abnormal results of thyroid function studies 12/03/24 1419 <Electronically signed by Anni Ansari DO> Date _ Anni Harman DO Cosigner Signature: Date (if applicable) CC: ~ [facility] Work Phone: 1(416) 499-495506-27-2025 Evaluation note* Diagnosis Onset Date Resolution Status Admit Date History of depression, currently acute J [facility] 2024 2:47pm acute November 07 2:47pm Supervision of normal acut e November 07, 2024 2:47pm Crohn's disease chronic October 2:47pm [facility] Work Phone: 1(110) 869-772106-27-2025 Evaluation note* Diagnosis Onset Date Resolution Status Admit Date History of depression, currently acute J [facility] 2024 2:47pm acute November 07 2:47pm Supervision of normal acut e November 07, 2024 2:47pm Crohn's disease chronic October 2:47pm Abnormal thyroid uptake study acute Hina 23rd, 2025 1:49pm History of depression, currently acute J carey 2024 1:49pm acute December 03 1:49pm Supervision of normal acut e December 03, 2024 1:49pm Crohn's disease chronic November 1:49pm [facility] Work Phone: 1(648) 274-355506-27-2025 Evaluation note* Diagnosis Onset Date Resolution Status Admit Date History of depression, currently acute J une 2024 2:47pm acute November 07 2:47pm Supervision of normal acute November 07, 2024 2:47pm Crohn's disease chronic October 2:47pm Abnormal thyroid uptake study acute December 03, 2024 1:49pm History of depression, currently acute J 2024 1:49pm acute December 03 1:49pm Supervision of normal acute December 03, 2024 1:49pm Crohn's disease chronic November 1:49pm Abnormal thyroid uptake study acute January 02, 2025 8:30am History of depression, currently acute A ugust 2024 8:30am acute January 02, 2 025 8:30am Supervision of normal acute January 02 8:30am Crohn's disease chronic January 022024 8:30am [facility] Work Phone: 1(236) 460-850606-27-2025 Evaluation note* Diagnosis Onset Date Resolution Status Admit Date History of depression, currently acute November 07, 2024 2:47pm acute November 07 2:47pm Supervision of normal acute November 07, 2024 2:47pm Crohn's disease chronic October 2:47pm Abnormal thyroid uptake study acute December 03, 2024 1:49pm History of depression, currently acute December 03, 2024 1:49pm acute December 03 1:49pm Supervision of normal acute December 03, 2024 1:49pm Crohn's disease chronic November 1:49pm Abnormal thyroid uptake study acute January 02, 2025 8:30am History of depression, currently acute January 02 8:30am acute January 02, 2 025 8:30am Supervision of normal acute January 02 8:30am Crohn's disease chronic January 022024 8:30am Abnormal thyroid uptake study acute January 21, 2025 9:59am History of depression, currently acute January 21, 2025 9:59am acute January 9:59am Supervision of normal acute January 21, 2025 9:59am Crohn's disease chronic January 21, 2025 9:59am [facility] Work Phone: 1(418) 127-592206-27-2025 Evaluation note* Diagnosis Onset Date Resolution Status Admit Date History of depression, currently acute November 07, 2024 2:47pm acute November 07 2:47pm Supervision of normal acute November 07, 2024 2:47pm Crohn's disease chronic October 2:47pm Abnormal thyroid uptake study acute December 03, 2024 1:49pm History of depression, currently acute December 03, 2024 1:49pm acute December 03 1:49pm Supervision of normal acute December 03, 2024 1:49pm Crohn's disease chronic November 1:49pm Abnormal thyroid uptake study acute January 02, 2025 8:30am History of depression, currently acute January 02 8:30am acute January 02, 2 025 8:30am Supervision of normal acute January 02 8:30am Crohn's disease chronic January 022024 8:30am Abnormal thyroid uptake study acute January 21, 2025 9:59am History of depression, currently acute January 21, 2025 9:59am acute January 9:59am Supervision of normal acute January 21, 2025 9:59am Crohn's disease chronic January 21, 2025 9:59am Abnormal thyroid uptake study acute February 16, 2025 9:54am History of depression, currently acute February 16 9:54am acute February 16, 2 025 9:54am Supervision of normal acute February 16 9:54am Crohn's disease chronic February 162024 9:54am [facility] Work Phone: 1(585) 182-633801-02-2025 Note* Exam Date Time Procedure Performing Provider Status 05/15/24 10:[address] Thorax w/o Contrast OVI NDIAYE MD; Auth (Verified) [id number] ORIGINAL EXAMINATION: CT OF THE CHEST WITHOUT CONTRAST 05/15/2024 10:30 am TECHNIQUE: CT of the chest was performed without the administration of intravenous contrast. Multiplanar reformatted images are provided for review. Automated exposure control, iterative reconstruction, and/or weight based adjustment of the mA/kV was utilized to reduce the radiation dose to as low as reasonably achievable. COMPARISON: None. HISTORY: ORDERING SYSTEM PROVIDED HISTORY: Reason for Exam: remote history of lung nodules noted on CT, follow-up FINDINGS: No osseous abnormality identified. 3 mm left lower lobe pulmonary nodule is evident. At the extreme right lung base, where there is an additional 3 mm nodule. These are of doubtful significance. No focal infiltrates are visible and there is no pleural fluid present. No definite mediastinal adenopathy within the constraints of a noncontrast exam. No additional contributory abnormality. IMPRESSION: 2 separate subcentimeter lower lobe pulmonary nodules of doubtful significance. Follow-up as clinically appropriate. Interpreted by: Ovi Ndiaye MD Preliminary Report By: Ovi Ndiaye MD Electronically signed By Ovi Ndiaye MD Dictated Date: 05/15/2024 10:33:11 AM Prelim Date: 05/15/2024 10:35:51 AM Sign Date: 05/15/2024 10:35:51 AM Ordering Provider: RUTH BRITTANY [facility]09-09-2024 Telephone encounter Note* Telephone Encounter - Sasha Allen - 01/21/2024 3:16 PM EDT Reached out to patient regarding referral to genetics. Left vague VM on unidentified VM box. Stated that I would follow up with a MCM and left [facility] line for a call back. Sasha Allen Genetic Counselor Technical Laboratory Asst [facility]09-09-2024 Miscellaneous Notes* Telephone Encounter - Sasha Allen - 01/21/2024 3:16 PM EDT Reached out to patient regarding referral to genetics. Left vague VM on unidentified VM box. Stated that I would follow up with a MCM and left [facility] line for a call back. Sasha Allen Genetic Counselor Technical Laboratory Asst [facility] Discharge instructions Patient Education 01/04/2024 08:23:02 Vomiting and Diarrhea, Nonspecific (Adult) Nonspecific Vomiting and Diarrhea (Adult) Vomiting and diarrhea can have many causes, including: Helping your body get rid of harmful substances Gastroenteritis caused by viruses, parasites, bacteria, or toxins. Allergy to or side effect of a food or medicine Severe stress or worry (anxiety) Other illnesses It is often hard to pinpoint an exact cause, even with testing. Vomiting and diarrhea often go awaywithin a day or two without problems. If they continue, though, they can lead to too much loss of fluid (dehydration). This can be serious if not treated. Home care Medicines You may use acetaminophen or NSAID medicines like ibuprofen or naproxen to control fever, unless another medicine was prescribed. If you have chronic liver or kidney disease, talk with your healthcare provider before using these medicines. Also talk with your provider if you've had a stomach ulcer or gastrointestinal bleeding. Don't give aspirin to anyone under 18 years of age who is ill with a fever because it may cause severe disease or . Don't use NSAID medicines if you are already taking one for another condition (like arthritis) or are on aspirin (such as for heart disease or after a stroke) Mwef-afu-rhntpkz medicines for diarrhea, nausea, and vomiting are generally OK unless you have bleeding, fever, or severe abdominal pain. General care If symptoms are severe, rest at home for the next 24 hours, or until you are feeling better. Washing your hands with soap and water, or using alcohol-based hand assisted living coordinator is the best way to stop the spread of infection. Wash your hands after touching anyone who is sick. Wash your hands after using the toilet and before meals. Clean the toilet after each use. Dry your hands with a single use towel. Caffeine, tobacco, and alcohol can make the diarrhea, cramping, and pain worse. Remember, caffeine not only is in coffee, but also is in chocolate, some energy drinks, and teas. Diet Water and clear liquids are important so you don't get dehydrated. Drink a small amount at a time. Don't guzzle down the drinks. That may increase your nausea, make cramping worse, and cause the drinks to come back up. Sports drinks may also help if you are healthy and not too dehydrated. They have too much sugar andnot enough electrolytes and can sometimes make things worse. Also, don't drink beverages that are too acidic, like orange juice and grape juice. If you are very dehydrated, commercially available products called oral rehydration solutions are best. Food Don't force yourself to eat, especially if you have cramps, diarrhea, or vomiting. Eat just a little at a time, and then wait a few minutes before you try to eat more. Don't eat fatty, greasy, spicy, or fried foods. Don't eat dairy products if you have diarrhea. They can make it worse. During the first 24 hours (the first full day), follow the diet below: Beverages: Oral rehydration solutions, sports drinks, soft drinks without caffeine, mineral water, and decaffeinated tea and coffee Soups: Clear broth, consomm , and bouillon Desserts: Plain gelatin, popsicles, and fruit juice bars During the next 24 hours (the second day), you may add the following to the above if you are better. If not, continue what you did the first day: Hot cereal, plain toast, bread, rolls, crackers Plain noodles, rice, mashed potatoes, chicken noodle or rice soup Unsweetened canned fruit (avoid pineapple), bananas Limit fat intake to less than 15 grams per day by avoiding margarine, butter, oils, mayonnaise, sauces, gravies, fried foods, peanut butter, meat, poultry, and fish. Limit fiber. Avoid raw or cooked vegetables, fresh fruits (except bananas) and bran cereals. Limit caffeine and chocolate. No spices or seasonings except salt. During the next 24 hours: Gradually resume a normal diet, as you feel better and your symptoms improve. If at any time your symptoms start getting worse again, go back to clear liquids until you feel better. Food preparation If you have diarrhea, you should not prepare food for others. When preparing foods, wash your handsbefore and after. Wash your hands or use alcohol-based assisted living coordinator after using cutting boards, countertops, and knives that have been in contact with raw food. Dry your hands with a single use towel. Keep uncooked meats away from cooked and ydzbs-ty-grb foods. Follow-up care Follow up with your healthcare provider, or as advised. Call if you don't get better in the next 2 to 3 days. If a stool (diarrhea) sample was taken, or cultures done, you will be told if they are positive, or if your treatment needs to be changed. You may call as directed for the results. If X-rays were taken, you will be notified of any new findings that may affect your care Call 911 Call 911 if any of these occur: Trouble breathing Chest pain Confusion Severe drowsiness or trouble awakening Fainting or loss of consciousness Rapid heart rate Seizure Stiff neck Severe weakness, dizziness, or lightheadedness When to seek medical advice Call your healthcare provider right away if any of these occur: Bloody or black vomit or stools Severe, steady abdominal pain or any abdominal pain that is getting worse Severe headache or stiff neck An inability to hold down even sips of liquids for more than 12 hours Vomiting that lasts more than 24 hours Diarrhea that lasts more than 24 hours Fever of 100.4 F (38.0 C) or higher, or as directed by your healthcare provider Yellowish color to your skin or the whites of your eyes Signs of dehydration, such as dry mouth, little urine (less than every 6 hours), or very dark urine [id number] [employer]. [address] [place] [address], [place] [address]. All rights reserved. This information is not intended as a substitute for professional medical care. Always follow yourhealthcare professional's instructions. Follow Up Care 01/04/2024 07:12:06 With:DREW SALTER APRN-COMMANDER INTERNAL AFFAIRS Address: [address] [place] [phone] When:2-4 days [facility] 08-23-2024 Note Discharge Instructions Thank you for allowing [facility] to assist you with your healthcare needs. The following is importantdischarge information regarding your hospital visit. Diagnosis from Today's Visit Diarrhea Vomiting What to Do Next Instructions from Your Care Team No qualifying data available. Post Acute Orders No qualifying data available. You Need to Schedule the Following Appointments Follow Up with DREW SALTER When:Within 2-4 days Where:[address] [facility] [place] [phone]- [phone] Allergies penicillin Hives Medications Please ask your primary doctor or pharmacist before taking any other medication not listed, including over the counter drugs, herbal medications, vitamins and or supplements as they may interact withyour home medications. What How Much When Instructions Last Dose New ondansetron (Zofran 4 mg oral tablet) 1 tab(s) by mouth Every 8 hours Duration: 5 Days Printed Prescription Unchanged multivitamin (Multivitamin) 1 tab(s) by mouth Every day Unchanged sertraline (sertraline 25 mg oral tablet) 1 tab(s) by mouth Once a day Please take this list to your next doctor s visit. Bring all medications you take, including over the counter medications, herbals and other supplements with you to your doctor s visit. Patients and families are reminded to discard old lists and to update any records with all medication providers or retail pharmacies. Medication Leaflets ondansetron (oral) (on SULEMA merino) What is the most important information I should know about ondansetron? You should not use ondansetron if you are also using apomorphine (Apokyn). What is ondansetron? Ondansetron blocks the actions of chemicals in the body that can trigger nausea and vomiting. Ondansetron is used to prevent nausea and vomiting that may be caused by surgery, cancer chemotherapy, or radiation treatment. Ondansetron may be used for purposes not listed in this medication guide. What should I discuss with my health care provider before taking ondansetron? You should not use ondansetron if: you are also using apomorphine (Apokyn); or you are allergic to ondansetron or similar medicines (dolasetron, granisetron, palonosetron). To make sure ondansetron is safe for you, tell your doctor if you have: liver disease; an electrolyte imbalance (such as low levels of potassium or magnesium in your blood); congestive heart failure, slow heartbeats; a personal or family history of long QT syndrome; or a blockage in your digestive tract (stomach or intestines). Ondansetron is not expected to harm an unborn baby. Tell your doctor if you are . It is not known whether ondansetron passes into breast milk or if it could harm a nursing baby. Tell your doctor if you are breast-feeding a baby. Ondansetron is not approved for use by anyone younger than 4 years old. Ondansetron orally disintegrating tablets may contain phenylalanine. Tell your doctor if you have phenylketonuria (PKU). How should I take ondansetron? Follow all directions on your prescription label. Do not take this medicine in larger or smaller amounts or for longer than recommended. Ondansetron can be taken with or without food. The first dose of ondansetron is usually taken before the start of your surgery, chemotherapy, or radiation treatment. Follow your doctor's dosing instructions very carefully. Take the ondansetron regular tablet with a full glass of water. To take the orally disintegrating tablet (Zofran ODT): Keep the tablet in its blister pack until you are ready to take it. Open the package and peel back the foil. Do not push a tablet through the foil or you may damage the tablet. Use dry hands to remove the tablet and place it in your mouth. Do not swallow the tablet whole. Allow it to dissolve in your mouth without chewing. Swallow several times as the tablet dissolves. To use ondansetron oral soluble film (strip) (Zuplenz): Keep the strip in the foil pouch until you are ready to use the medicine. Using dry hands, remove the strip and place it on your tongue. It will begin to dissolve right away. Do not swallow the strip whole. Allow it to dissolve in your mouth without chewing. Swallow several times after the strip dissolves. If desired, you may drink liquid to help swallow the dissolved strip. Wash your hands after using Zuplenz. Measure liquid medicine with the dosing syringe provided, or with a special dose-measuring spoon ormedicine cup. If you do not have a dose-measuring device, ask your pharmacist for one. Store at room temperature away from moisture, heat, and light. Store liquid medicine in an upright position. What happens if I miss a dose? Take the missed dose as soon as you remember. Skip the missed dose if it is almost time for your next scheduled dose. Do not take extra medicine to make up the missed dose. What happens if I overdose? Seek emergency medical attention or call the Poison Help line at . Overdose symptoms may include sudden loss of vision, severe constipation, feeling light-headed, or fainting. What should I avoid while taking ondansetron? Ondansetron may impair your thinking or reactions. Be careful if you drive or do anything that requires you to be alert. What are the possible side effects of ondansetron? Get emergency medical help if you have signs of an allergic reaction: rash, hives; fever, chills, difficult breathing; swelling of your face, lips, tongue, or throat. Call your doctor at once if you have: severe constipation, stomach pain, or bloating; headache with chest pain and severe dizziness, fainting, fast or pounding heartbeats; fast or pounding heartbeats; jaundice (yellowing of the skin or eyes); blurred vision or temporary vision loss (lasting from only a few minutes to several hours); high levels of serotonin in the body--agitation, hallucinations, fever, fast heart rate, overactivereflexes, nausea, vomiting, diarrhea, loss of coordination, fainting. Common side effects may include: diarrhea or constipation; headache; drowsiness; or tired feeling. This is not a complete list of side effects and others may occur. Call your doctor for medical advice about side effects. You may report side effects to FDA at 5-873-JXX-7271. What other drugs will affect ondansetron? Ondansetron can cause a serious heart problem, especially if you use certain medicines at the same time, including antibiotics, antidepressants, heart rhythm medicine, antipsychotic medicines, and medicines to treat cancer, malaria, HIV or AIDS. Tell your doctor about all medicines you use, and those you start or stop using during your treatment with ondansetron. Taking ondansetron while you are using certain other medicines can cause high levels of serotonin to build up in your body, a condition called 'serotonin syndrome,' which can be fatal. Tell your doctor if you also use: medicine to treat depression; medicine to treat a psychiatric disorder; a narcotic (opioid) medication; or medicine to prevent nausea and vomiting. This list is not complete and many other drugs can interact with ondansetron. This includes prescription and czpj-jfg-rrmnmqq medicines, vitamins, and herbal products. Give a list of all your medicines to any healthcare provider who treats you. Where can I get more information? Your pharmacist can provide more information about ondansetron. Remember, keep this and all other medicines out of the reach of children, never share your medicines with others, and use this medication only for the indication prescribed. Every effort has been made to ensure that the information provided by [employer] is accurate, up-to-date, and complete, but no guarantee is made to that effect. Drug information contained herein may be time sensitive. [employer] information has been compiled for use by healthcare practitioners and consumers in the [place] and therefore [employer] does not warrant that uses outside of the [place] are appropriate, unless specifically indicated otherwise. [employer] drug information does not endorse drugs, diagnose patients or recommend therapy. [employer] drug information isan informational resource designed to assist licensed healthcare practitioners in caring for their p atients and/or to serve consumers viewing this service as a supplement to, and not a substitute for, the expertise, skill, knowledge and judgment of healthcare practitioners. The absence of a warningfor a given drug or drug combination in no way should be construed to indicate that the drug or drug combination is safe, effective or appropriate for any given patient. [employer] does not assume any responsibility for any aspect of healthcare administered with the aid of information [employer] provides. The information contained herein is not intended to cover all possible uses, directions, precautions, warnings, drug interactions, allergic reactions, or adverse effects. If you have questions about the drugs you are taking, check with your doctor, nurse or pharmacist. Copyright 0643-3508 [employer] Version: 16.. Revision Date: 12/14/2022. Education Materials Nonspecific Vomiting and Diarrhea (Adult) Vomiting and diarrhea can have many causes, including: Helping your body get rid of harmful substances Gastroenteritis caused by viruses, parasites, bacteria, or toxins. Allergy to or side effect of a food or medicine Severe stress or worry (anxiety) Other illnesses It is often hard to pinpoint an exact cause, even with testing. Vomiting and diarrhea often go awaywithin a day or two without problems. If they continue, though, they can lead to too much loss of fluid (dehydration). This can be serious if not treated. Home care Medicines You may use acetaminophen or NSAID medicines like ibuprofen or naproxen to control fever, unless another medicine was prescribed. If you have chronic liver or kidney disease, talk with your healthcare provider before using these medicines. Also talk with your provider if you've had a stomach ulcer or gastrointestinal bleeding. Don't give aspirin to anyone under 18 years of age who is ill with a fever because it may cause severe disease or . Don't use NSAID medicines if you are already taking one for another condition (like arthritis) or are on aspirin (such as for heart disease or after a stroke) Oefn-rht-xmmusdg medicines for diarrhea, nausea, and vomiting are generally OK unless you have bleeding, fever, or severe abdominal pain. General care If symptoms are severe, rest at home for the next 24 hours, or until you are feeling better. Washing your hands with soap and water, or using alcohol-based hand assisted living coordinator is the best way to stop the spread of infection. Wash your hands after touching anyone who is sick. Wash your hands after using the toilet and before meals. Clean the toilet after each use. Dry your hands with a single use towel. Caffeine, tobacco, and alcohol can make the diarrhea, cramping, and pain worse. Remember, caffeine not only is in coffee, but also is in chocolate, some energy drinks, and teas. Diet Water and clear liquids are important so you don't get dehydrated. Drink a small amount at a time. Don't guzzle down the drinks. That may increase your nausea, make cramping worse, and cause the drinks to come back up. Sports drinks may also help if you are healthy and not too dehydrated. They have too much sugar andnot enough electrolytes and can sometimes make things worse. Also, don't drink beverages that are too acidic, like orange juice and grape juice. If you are very dehydrated, commercially available products called oral rehydration solutions are best. Food Don't force yourself to eat, especially if you have cramps, diarrhea, or vomiting. Eat just a little at a time, and then wait a few minutes before you try to eat more. Don't eat fatty, greasy, spicy, or fried foods. Don't eat dairy products if you have diarrhea. They can make it worse. During the first 24 hours (the first full day), follow the diet below: Beverages: Oral rehydration solutions, sports drinks, soft drinks without caffeine, mineral water, and decaffeinated tea and coffee Soups: Clear broth, consomm , and bouillon Desserts: Plain gelatin, popsicles, and fruit juice bars During the next 24 hours (the second day), you may add the following to the above if you are better. If not, continue what you did the first day: Hot cereal, plain toast, bread, rolls, crackers Plain noodles, rice, mashed potatoes, chicken noodle or rice soup Unsweetened canned fruit (avoid pineapple), bananas Limit fat intake to less than 15 grams per day by avoiding margarine, butter, oils, mayonnaise, sauces, gravies, fried foods, peanut butter, meat, poultry, and fish. Limit fiber. Avoid raw or cooked vegetables, fresh fruits (except bananas) and bran cereals. Limit caffeine and chocolate. No spices or seasonings except salt. During the next 24 hours: Gradually resume a normal diet, as you feel better and your symptoms improve. If at any time your symptoms start getting worse again, go back to clear liquids until you feel better. Food preparation If you have diarrhea, you should not prepare food for others. When preparing foods, wash your handsbefore and after. Wash your hands or use alcohol-based assisted living coordinator after using cutting boards, countertops, and knives that have been in contact with raw food. Dry your hands with a single use towel. Keep uncooked meats away from cooked and jovgk-wh-gsk foods. Follow-up care Follow up with your healthcare provider, or as advised. Call if you don't get better in the next 2 to 3 days. If a stool (diarrhea) sample was taken, or cultures done, you will be told if they are positive, or if your treatment needs to be changed. You may call as directed for the results. If X-rays were taken, you will be notified of any new findings that may affect your care Call 911 Call 911 if any of these occur: Trouble breathing Chest pain Confusion Severe drowsiness or trouble awakening Fainting or loss of consciousness Rapid heart rate Seizure Stiff neck Severe weakness, dizziness, or lightheadedness When to seek medical advice Call your healthcare provider right away if any of these occur: Bloody or black vomit or stools Severe, steady abdominal pain or any abdominal pain that is getting worse Severe headache or stiff neck An inability to hold down even sips of liquids for more than 12 hours Vomiting that lasts more than 24 hours Diarrhea that lasts more than 24 hours Fever of 100.4 F (38.0 C) or higher, or as directed by your healthcare provider Yellowish color to your skin or the whites of your eyes Signs of dehydration, such as dry mouth, little urine (less than every 6 hours), or very dark urine [id number] [employer]. [address] [place] [address]. All rights reserved. This information is not intended as a substitute for professional medical care. Always follow yourhealthcare professional's instructions. Additional Information VACCINATE! IT SAVES LIVES! Members of the community who have not yet received the COVID-19 vaccine and would like to receive it can visit one of [facility] vaccine clinics. There are many vaccine clinic locations within the [facility]. For locations and available times, please visit www.gettheshot.coronavirus.[place].gov/. It is important to note that some COVID mobile vaccine clinics are held outdoors and may be canceled in rainy or stormy conditions. To learn more about pediatric vaccinations (ages 5-11), we invite you to visit the [facility] webpage. https://www.[facility].org/pages/7404-Gblsy-Zrglbmjyxzp-Hdwtbgavwa-Evkqm-Uhd stions.htmlTo learn more about the COVID-19 vaccine, we invite you to visit the CDC website for a list of frequently asked questions. https://www.cdc.gov/coronavirus/2019-ncov/vaccines/faq.html [facility] Patient Portal Access Instructions: Stay connected with your healthcare team and access your personal medical information anytime with the [facility] Patient Portal. If you would like a full copy of your medical records please contact the [facility] Medical Records Department Sunday through Sunday between 8a.m. and 4:30p.m. Please follow the directions below to access the portal: 1.Access the email account you provided upon registration to the [facility].2.Look for an invitation email from [facility].3.Open the email and access the invitation link: Accept Invitation to [facility]4.Fill in the required jewell to create your account. Sign into www.Dabble with your username and password that you created in the above steps to stay up to date. You can then view a summary of results, a summary of your visits, and the ability to download your summaries to your computer or send the information securely to a physician. Remember that your healthcare information is confidential, so carefully consider who you will allow to register on the [facility] Patient Portal for access to your information. You can also access the [facility] Patient Portal on the [employer]. Simply click on Health Records under [employer] and then click on the [employer] logo. HOW TO SAFELY DISPOSE OF PRESCRIPTION MEDICATIONS Please use one of the following methods to safely dispose of your unused medications. 1.Use a drug disposal kit: the drug disposal pouch allows you to safely discard your old and unuseddrugs. Ask your nurse to give you one when you are discharged.2.Visit a local take-back location: Many local pharmacies and police departments have programs that collect old and unwanted prescriptiondrugs. Call your local pharmacy or go to http://[employer].Inhibitex/4T4Xi3o to find one close to you.3.Make use of household items: Use cat litter or old coffee grounds to dispose medications if other options arenot available. Mix your drugs with these household products, seal them in an airtight container andthrow it into the garbage. Call [facility]: [phone] to be sure your drugs can be disposed of in this way. Some medicines may require a different approach.4.Never flush your medications down the toilet. IF YOU HAVE BEEN PRESCRIBED AN OPIOIDS FOR PAIN If you have been prescribed an opioid (such as hydrocodone, oxycodone or morphine), it is critical to understand the possible side effects and risks of opioid pain medications. Even when taken as directed, opioids can have several side effects including: Tolerance, meaning you might need to take more of a medication for the same pain relief. Nausea, vomiting and/or constipation. Sleepiness, dizziness, dry mouth, confusion, depression or itching. Physical dependence, meaning you have withdrawal symptoms when a medication is stopped ? this can develop within a few days. KNOW YOUR RESPONSIBILITIES It is important to know exactly how much and how often to take the opioid pain medications you are prescribed. Never take opioids in higher amounts or more often than prescribed. Do not combine opioids with alcohol or other drugs that cause drowsiness, such as benzodiazepines, also known as benzos,including diazepam and alprazolam, muscle relaxants or sleep aids. Never sell or share prescriptionopioids. This is illegal. Store opioids in a secure place and out of reach of others (including children, family, friends and visitors). The last page(s) of this document has been signed and retained as a CHART COPY Signatures Patient Education Materials Vomiting and Diarrhea, Nonspecific (Adult) Medication Leaflets ondansetron (oral) My discharge plan and instructions have been reviewed and explained to me and I,XIOMARA NULL understand my current condition and have read and understand these discharge instructions. I have received a written copy of the plan/instructions. If I have questions, I am aware that I should contactmy doctor. Patient/Scales Inspector Signature: Date/Time: Relationship to Patient: Witness Name/Signature: Date/Time: [facility]12-07-2023 Nurse Note* Nicki Ragsdale LPN - 04/19/2023 2:18 PM EST AMBULATORY PATIENT EDUCATION NOTE TOPIC: GI PROCEDURES: Colonoscopy with or without biopsies based on clinical findings READINESS TO LEARN INSTRUCTION PROVIDED TO: Patient, readness to learn accessed prior to procedure COGNITIVE ABILITY: Alert and oriented PTED MOTIVATION TO LEARN: Interested FAMILY SUPPORT: available IPATIENT LEARNS BEST BY: Individual Instruction FACTORS AFFECTING LEARNING: None PHYSICAL LIMITATIONS AFFECTING LEARNING: None LEARNING RESPONSE METHOD OF INSTRUCTION: Individual instruction PATIENT / FAMILY RESPONSE: Verbalizes understanding of: WORSENING CONDITION- Signs and symptoms of aworsening condition that warrant a call to the physician FOLLOW-UP PLAN: Complete - No need for follow-up SUPPLEMENTAL MATERIAL: Procedure Discharge Instructions REFERRAL (RECOMMENDATION): None Electronically Signed By: Nicki Ragsdale LPN * Katrin Birmingham RN - 04/19/2023 12:25 PM EST PRE OP LEARNING ASSESSMENT PROCEDURE/SURGERY: GI PROCEDURES: Colonoscopy READINESS TO LEARN COGNITIVE ABILITY: Alert and oriented MOTIVATION TO LEARN: Eager FAMILY SUPPORT: High - Very involved in pt care PATIENT LEARNS BEST BY: Individual Instruction FACTORS AFFECTING LEARNING: None PHYSICAL LIMITATIONS AFFECTING LEARNING: None Electronically Signed By: Katrin Birmingham RN In Department: GASTROENTEROLOGY documented in this [facility]23 History and physical note * Julien Cameron MD - 04/19/2023 1:00 PM EST COMPREHENSIVE DAY OF SURGERY SURGICAL SERVICES H&P SERVICE DATE: 04/19/2023 SERVICE TIME: 1 pm PRIMARY CARE PHYSICIAN: Anni Horton MD Subjective CHIEF COMPLAINT: crohn's disease HISTORY OF PRESENT ILLNESS: Ms. NULL is a 27 year old female who presents for * No procedures listed *. 27 yo woman history of crohn's for colonoscopy PAST MEDICAL HISTORY Diagnosis Date Anemia Anxiety Crohn's disease (HCC) 06/09/19: Seeing GI, no medications at this time PAST SURGICAL HISTORY Procedure Laterality Date I & D OF ANAL ABSCESS, SIMPLE 10/22/2015 I&D ABSC; COMPL OR MULTI 08/2015 for fistula repair secondary to crohns FAMILY HISTORY Problem Relation Age of Onset other (leukemia) Maternal Grandfather other (leukemia) Maternal Aunt states multiple family members with same type of leukemia Hypertension Maternal Uncle Hyperlipidemia Maternal Uncle Asthma Maternal Uncle other (leukemia) Maternal Uncle Breast Cancer Other diagnosed young age unknown Social History Tobacco Use Smoking status: Never Smokeless tobacco: Never Vaping Use Vaping Use: Never used Substance Use Topics Alcohol use: Not Currently Comment: social Drug use: No (Not in a hospital admission) No current facility-administered medications for this encounter. ALLERGIES Allergen Reactions Penicillins Hives REVIEW OF SYSTEMS: RESPIRATORY: Negative for cough, hemoptysis, wheezing, COPD, dyspnea or shortness of breath CARDIOVASCULAR: Negative for chest pain, leg swelling, hypertension, CHF or palpitations GENERAL: No weight loss, malaise or fevers GI: No nausea, vomiting, or diarrhea Objective PHYSICAL EXAM: BP 124/85 Pulse 74 Temp (Src) 97.3 (Temporal) Resp 18 Ht 5' 4 (1.63m) Wt 150 lb (68.0kg) SpO2 99% LMP 06/07/2020 BMI 25.73 kg/(m^2). O2 Therapy: Room Air Physical Exam Performed LUNGS: Lungs clear to auscultation, Good diaphragmatic excursion CARDIAC: Normal S1 and S2; no rubs, murmurs, or gallops GENERAL: Alert, no distress, cooperative ABDOMEN: Abdomen soft, non-tender, BS normal, No masses or organomegaly DATA: Diagnostic tests reviewed for today's visit: Most recent labs and imaging results. Assessment/Plan ACTIVE PROBLEM LIST Crohn's Disease (Hcc) Anal Skin Tag Nodule of Left Lung Screening for Thyroid Disorder 27 yo woman history of crohn's for colonoscopy SIGNATURE: Julien Cameron MD PATIENT NAME: Xiomara NULL DATE: April 19, 2023 TIME: 1:07 PM documented in this [facility]Fair[facility]12-06-2023 Miscellaneous Notes* Telephone Encounter - Katherine Garza MA - 04/18/2023 1:42 PM EST Pt had concerns with and taking the prep. I LM stating she should be fine but to makesure she gets what is recommended after sedation. Left number to contact with any further questions. documented in this [facility]Fair[facility] Center11-30-2023 Miscellaneous Notes* Telephone Encounter - Mona Vela LPN - 04/12/2023 12:57 PM EST Attempted to reach the patient at the contact number that they provided [phone] (home) . Unable to speak with patient so without identifying the patient the following information was left on their voice mail: Date of procedure, location and report time Prep instructions A message was left informing the patient/patient motor vehicle field representative they must have a responsible adult accompany them to their procedure; and remain in the endoscopy area until they are discharged. Failure to have a responsible adult accompany the patient to their procedure appointment prevents the useof sedation or anesthesia for their procedure; and can result in cancellation of the procedure NPO instructions were reviewed. Clear liquids the day before the procedure, stop all liquids 4 hours before the procedure Instructions to contact their primary care provider regarding their medications and which medications to stop in preparation for their procedure Instructions to completely read and follow the written instructions that they recieved regarding their procedure. Number to call with questions or concerns [phone] Number to call to cancel their procedure [phone] Mona Vela LPN documented in this encounterFairfield [facility] Center07-31-2023 Progress note Author Aleshia Bear [facility] December 11, 2022 8:05am Note Date/Time December 11, 2022 8:02 am [facility] Medical Records Department [address] [place] [address] Progress Note - OBGYN 12/11/22 0800 MR#: [id number] Acct: [id number] Name: ROLANDAXIOMARA Dorantes LOGAN Rep #:[id number] : 1995 26 From: Aleshia Bear CNM PCP: Care Physician,No Primary Status :ADM IN Location: [place] [id number] Subjective Subjective Patient doing well physically, voicing concerns of anxiety, having racing thoughts and inability to sleep. Tolerating PO. Ambulating and voiding without difficulty. Feeding well. Denies chest pain, shortness of breath, calf pain/swelling, fevers, chills, lightheadedness. Objective Data Objective Data Vital Signs: Vital Signs Temp Pulse Resp BP Pulse Ox O2 Del Method 98.0 F 83 21 H 135/61 H 98 Room Air 12/11/22 03:34 12/11/22 03:34 12/11/22 03:34 12/11/22 03:34 12/11/22 03:34 12/11/22 03:34 Oxygen Delivery Method Room Air Weight: 177 lb 7.554 oz Body Mass Index (BMI) 30.4 Intake & Output: Intake and Output for Last 24 Hours 12/09/22 12/10/22 12/11/22 23:59 23:59 23:59 Intake Total 261.67 / 261.67 Output Total 550 / 550 Balance -288.33 / -288.33 Lab / Micro Data 12/10/22 02:43 Physical Exam Const alert and no apparent distress Chest inspection of chest normal and inspection of breasts normal Resp normal respiratory effort GI normal to inspection, nondistended, normoactive bowel sounds GI Narrative: fundus firm, 2 below u. normal lochia Extremity normal to inspection, no calf tenderness and no pedal edema Skin no rashes or lesions noted Psych Mood & Affect: anxious Assessment & Plan (1) (spontaneous vaginal delivery): COMMENT: 12/10 38 weeks girl:miriam. (2) Hx of depression, currently : COMMENT: zoloft if needed support international website recommended along with counseling for anxiety. PLAN: start on zoloft 25 mg today f/u in office by 2 weeks pp, call office if increase s/sx of depression. immediately is s/sx of SI, thoughts of harming infant. (3) Crohn's disease: QUALIFIERS: Digestive disease complication type: unspecified complication Gastrointestinal tract location: unspecified location Qualified Code(s): K50.919 - Crohn's disease, unspecified, with unspecified complications COMMENT: normal growth, per MFM no additional growth US needed unless clinically indicated. (4) Anxiety: COMMENT: no meds PLAN: Plan s/p PPD #1 1. routine post delivery care 2. breast feeding- support given 3. rh positive 4. rubella immune 5. d/c home today 12/11/22 08 <Electronically signed by Aleshia Bear CNM> Cosigner Signature (if applicable): CC: ~ Signed [facility] Work Phone: 1(468) 733-170507-30-2023 Discharge summary Author Aleshia Bear [facility] December 10, 2022 9:22am Note Date/Time December 10, 2022 9:18 am [facility] Medical Records Department [address] [place] [address] Instructions for Home/Discharge Instructions 12/10/22917 MR#: [id number] Acct: [id number] Name: XIOMARA NULL Rep #:[id number] : 1995 From: Aleshia Bear CNM PCP: Rick Physician,No Primary Status :ADM IN Discharge Instructions Diet Discharge Diet: No restrictions Activity Discharge Activity: May Not Drive and May Shower May resume sexual activity in: 6 weeks Weight Bearing Status: Full weight bearing Dressing / Incision Call your doctor if your incision/area has: Sudden Increased Bleeding, IncreasedPain/ Swelling and Foul Smelling Discharge Call your doctor if you observe: Fever of 101 or Higher, Numbness or Tingling, Change in Color, Inability to urinate, Inability to have a bowel movement, Usingmore than 1 pad per hour, Shortness of breath, Dizziness, Fainting spells, Chestpain, Calf discomfort and Uncontrolled pain Follow Up Care Please Follow Up With: Aleshia Bear CNM When: 6 weeks , please call office to make an appointment. Congratulations on the of your baby liz Pineda!!! Test Results: Test results from this visit will be discussed in further detail at your follow- up appointment, if applicable. Discharge Plan Admission Admit Date/Time: 12/10/22 02:42 Attending Provider: Aleshia Bear Primary Care Provider: Rick Physician,Emily Primary Discharge Orders/Prescriptions Prescriptions: No Action PNV-DHA 27 mg iron-1 mg -300 mg capsule PO Referrals / Follow Up: Care Physician,No Primary [Primary Care Provider] - Disposition Disposition (needs filled in before D/C Order can be placed): Home, Self Care 12/10/22921<Electronically signed by Aleshia Bear CNM>Aleshia Bear CNM CC: No Primary Care Physician ~ Signed [facility] Work Phone: 1(200) 796-243307-30-2023 History and physical note Author Aleshia Bear [facility] December 10, 2022 3:27am Note Date/Time December 10, 2022 3:27 am [facility] Medical Records Department [address] [place] [address] [place] [address] 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 no lof/vb. +fm. Maternal Data Information GEORGE Calculator Estimated Delivery Date Method Current WG Current Estimate 12/23/22 LMP (Certain) 38w 1d PFSH PFSH Medical History Crohn's disease Crohn's disease Vaginal delivery Home Medications multivitamin no.47-iron fum 27 mg-folate no.1 1 mg-dha 300 mg capsule (PNV- DHA)cap PO 05/11/22 [History Last Taken 12/09/22 23:00] Allergy/AdvReac Type Severity Reaction Status Date / Time Penicillins Allergy Intermediate Hives Verified 12/09/22 22:59 Family History Father Hypertension Brother Hypertension Mother Thyroid disorder Grandfather Cancer Leukemia Aunt Cancer Leukemia Uncle Cancer Leukemia Social History adopted: No household members: spouse and children housing: house number of children: 1 current occupational status: employed current occupation: [employer] current occupational exposures/hazards: Yes (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) pets and animals: No history of recent travel: No sexually active: Yes Smoking Status: Never smoker second hand exposure: No alcohol intake: never substance use type: does not use diet: gluten free well-balanced diet: daily or most days caffeine: Yes Type: coffee Number of servings: 1 eating out: 1-3 times/week during the past year weight has: remained stable what type of physical activity do you participate in: none morena/mormonism: Yazidism seatbelt use: always do you feel safe at home: Yes additional social history: - Vincent (ramón) History 2 Elective abortions Hx Para 1 Spontaneous abortions Hx # Term Pregnancies Ectopic pregnancies Hx # Pregnancies Multiple births # of living children 1 Past Pregnancies Del. Date Name GA/Weeks Outcome Route Bth Weight Infant Gen Labor Lgth A rashad Aaron Provider FOB 04/04/21 Parmelee 39 live - full term Male epidur al [facility] Delivery Date: 04/04/21 Last Updated by: Maryellen Torrez PROM Visit Details Expected Delivery Route/Plan Labor Preferences- CB/BF classes: Denies labor support person: Vincent labor intervention preferences: pain management options preferred: Epidural cut cord/dad catch: cord : yes PP control planned: [] discussed possible routes of delivery and associated risks: [] special requests: warm compress to perineum, active perineal support during second phase. Plans Covid status: discussed Flu vaccine: discussed Tdap vaccine: declines Rhogam: na LARC form signed: yes Problem list reviewed and updated with the most current plan of care details and appropriate orders placed. Relevant counseling for the gestational age provided. Continue routine care and follow up unless otherwise noted in visit notes/problem list details OB Flowsheet Initial Weight: Not Recorded Date -?-?-?-?-?-?-?-?-?-?-?-?- EGA Weight BP Urine Prot -?-?-?-?-?-?-?-?-?-?-?-?- Glucose FHR FuHt Pres Dilation -?-?-?-?-?-?-?-?-?-?-?-?- Effaced St Visit Note 05/22/22 -?-?-?-?-?-?-?-?-?-?-?-?- 9w 2d 142 lb 100/70 -?-?-?-?-?-?-?-?-?-?--?-?- 180 -?-?-?-?-?-?-?-?-?-?-?-?- SM- 2.6cm cons w ith LMP 06/19/22 -?-?-?-?-?-?-?-?-?-?-?-?- 13w 2d 148 lb 4 oz 115/73 Nega tive -?-?-?-?-?-?-?-?-?-?-?-?- Negative 145 -?-?-?-?-?-?-?-?-?-?-?-?- SM- no vb crmapi ng 07/17/22 -?-?-?-?-?-?-?-?-?-?-?-?- 17w 2d 152 lb 8 oz 118/72 Nega tive -?-?-?-?-?-?-?-?-?-?-?-?- Negative 156 -?-?-?-?-?-?-?-?-?-?-?-?- MH-No Vb. Feels well. US is 07/31. Denies concerns 08/23/22 -?-?-?-?-?-?-?-?-?-?-?-?- 22w 4d 158 lb 115/76 Negative -?-?-?-?-?-?-?-?-?-?-?-?- Negative 145 23 -?-?-?-?-?-?-?-?-?-?-?-?- KW-+fm. no vb/cr amping. KW-+fm. no vb/cramping. no concerns. GTT next visit. discussed U S q 4 weeks start at 23 weeks 09/18/22 -?-?-?-?-?-?-?-?-?-?-?-?- 26w 2d 164 lb 8 oz 123/77 Nega tive -?-?-?-?-?-?-?-?-?-?-?-?- Negative 140 26 -?-?-?-?-?-?-?-?-?-?-?-?- SM- no vb lof go od fm no regular ctx 10/12/22 -?-?-?-?-?-?-?-?-?-?-?-?- 29w 5d 165 lb 2 oz 115/73 Nega tive -?-?-?-?-?-?-?-?-?-?-?-?- Negative 155 30 -?-?-?-?-?-?-?-?-?-?-?-?- JV- no lof, vagi nal bleeding, or cramping. wants to hold off on 39 week IOL and wait for spontaneous labor this time if possible. discussed risk of pp depression. 10/23/22 -?-?-?-?-?-?-?-?-?-?-?-?- 31w 2d 166 lb 4 oz 114/68 Nega tive -?-?-?-?-?-?-?-?-?-?-?-?- Negative 142 -?-?-?-?-?-?-?-?-?-?-?-?- MH-No Vb, LOF. G ood Fm. 11/06/22 -?-?-?-?-?-?-?-?-?-?-?-?- 33w 2d 167 lb 6 oz 108/72 Nega tive -?-?-?-?-?-?-?-?-?-?-?-?- Negative 130 34 -?-?-?-?-?-?-?-?-?-?-?-?- SM- no vb lof go od fm no regular ctx 11/20/22 -?-?-?-?-?-?-?-?-?-?-?-?- 35w 2d 172 lb 128/79 Negative -?-?-?-?-?-?-?-?-?-?-?-?- Negative 135 35 -?-?-?-?-?-?-?-?-?-?-?-?- Sm- no vb lof go od fm no regular ctx 11/27/22 -?-?-?-?-?-?-?-?-?-?-?-?- 36w 2d 174 lb 8 oz 120/77 Nega tive -?-?-?-?-?--?-?-?-?-?-?-?- Negative 132 36 -?-?-?-?-?-?-?-?-?-?-?-?- LC- no lof/vb/ct x. good fm. concerned with tissue integrity during delivery, wants warm compress and perineal support during delivery. reviewed CNM rolls gbs collected today. 12/04/22 -?-?-?-?-?-?-?-?-?-?-?-?- 37w 2d 177 lb 127/79 Negative -?-?-?-?-?-?-?-?-?-?-?-?- Negative 150 37 Cephalic 0 -?-?-?-?-?-?-?-?-?-?-?-?- LC- no lof/vb/ct x. good fm. gbs negative. having lalo hick, will increase po intake. no other concerns.cephalic on handheld ultrasound. ROS Cardiovascular Cardiovascular: Denies abdominal pain, chest pain, diaphoresis or dyspnea Respiratory/Chest Respiratory/Chest: Denies change in mental status, chest congestion, chest tightness, cough, shortness of breath at rest, shortness of breath with exertion, breast mass, breast pain, breast skin changes, breast swelling, change in breast shape or nipple discharge Genitourinary Genitourinary: Reports change in urinary stream Musculoskeletal Musculoskeletal: Reports none Integumentary Integumentary: Reports none Neurologic Neurologic: Reports none Psychiatric Psychiatric: Reports none Endocrine Endocrinology: Reports none Hematologic/Lymphatic Hematologic/Lymphatic: Reports none Allergic/Immunologic Allergic/Immunologic: Reports none Vital Signs Vital Signs Vital Signs: 12/10/22 03:09 12/10/22 03:09 12/10/22 03:09 Temperature 97.2 F L Pulse Rate 86 Blood Pressure 157/82 H BP Systolic 157 BP Diastolic 82 Pulse Ox 12/10/22 03:09 12/10/22 03:09 12/10/22 03:14 Temperature Pulse Rate 88 84 Blood Pressure BP Systolic BP Diastolic Pulse Ox 100 12/10/22 03:14 12/10/22 03:19 12/10/22 03:19 Temperature Pulse Rate 84 Blood Pressure BP Systolic BP Diastolic Pulse Ox 100 100 Physical Exam Const alert, oriented x3 and no apparent distress General Appearance: cooperative, comfortable and well kempt Orientation / Consciousness: awake and oriented to person Exam Limitations: no limitations HEENT normocephalic Neck full ROM Chest inspection of chest normal Resp normal respiratory effort, normal air movement and no retractions Effort and Inspection: able to speak in complete sentences and symmetric chest movement Cardio regular rate Peripheral Pulses: pulses 2+ throughout GI normal to inspection, nondistended, normoactive bowel sounds Inspection: gravid no CVA tenderness and appearance of the vagina normal External Female Exam: normal appearance of the urethra; Negative for external lesion OB / External & Speculum: external exam normal Manual OB Exam: estimated gestational size appropriate and presentation cephalic Uterus Palpation: Negative for uterus tender Extremity normal to inspection Skin no rashes or lesions noted Neuro deep tendon reflexes 2+ bilaterally and gait normal Motor Exam: strength 5/5 throughout and clonus absent Psych Activity / Motor Behavior: appropriate eye contact Speech: normal speech Labs Labs Labs: Blood Type B POSITIVE Antibody Screen NEGATIVE Hct 39.2 % (37-47) Hgb 13.4 g/dL (12.0-15.0) Pap Smear Negative Syphilis Total Ab Non-reactive Rubella IgG Antibody Reactive (Nonreactive) Hep Bs Antigen Non-Reactive (Nonreactive) Chlamydia DNA (AVERY) Negative (Negative) Neisseria gonorrhoeae DNA (AVERY) Negative (Negative) HIV 1&2 Antibody Non-Reactive (Nonreactive) Glucose 1 Hr 50 gm 117 mg/dL (70-140) Rhogam given: No Assessment & Plan (1) Spontaneous onset of labor: PLAN: Patient presents IAL, plan expectant management for , pitocin/AROM PRN if needed. Pain management: plans epidural. GBS negative. Management of any complications: none I have reviewed the [facility] and made any clinically relevant updates. updated on admission, exam and poc. low risk and agrees with primary midwifery management. (2) Supervision of high risk , antepartum: COMMENT: PRR , GEORGE 12/23/22 girl Miriam Goldman, Vincent (3) : QUALIFIERS: Weeks of gestation: 37 weeks Qualified Code(s): Z3A.37 - 37 weeks gestation of COMMENT: gbs neg. declined genetic, ntd, & carrier testing. anatomy nl (4) Hx of depression, currently : COMMENT: zoloft if needed support international website recommended along with counseling for anxiety. (5) Anxiety: COMMENT: no meds (6) Crohn's disease: QUALIFIERS: Gastrointestinal tract location: unspecified location Digestive disease complication type: unspecified complication Qualified Code(s): K50.919 - Crohn's disease, unspecified, with unspecified complications COMMENT: normal growth, per MFM no additional growth US needed unless clinically indicated. 12/10/227 <Electronically signed by Aleshia Bear CNM> Cosigner Signature (if applicable): CC: JAYNE Bear; No Primary Care Physician~ Signed [facility] Work Phone: [phone] Procedure [facility] 08-17-2022 Instructions* Patient Instructions* Julien Cameron MD - 08/17/2022 8:38 AM EDT Images from the original note were not included. Bowel Preparation Instructions for: Miralax-Gatorade Preparations IF YOU DO NOT FOLLOW THESE DIRECTIONS, YOUR COLONOSCOPY WILL BE CANCELLED. [place] Instructions: Your bowel must be empty so that your doctor can clearly view your colon. Follow all of the instructions in this handout EXACTLY as they are written. Do NOT eat any solid food the ENTIRE day before your colonoscopy. Buy your bowel preparation at least 5 days before your colonoscopy. Four (4) Dulcolax laxative tablets containing 5mg of bisacodyl each (NOT Dulcolax stool softener) One (1) 8.3oz. bottle Miralax (238 grams) or generic equivalent 2 x 32oz. Bottles of Gatorade (NOT RED) Diabetic Patients: Use G2 (Gatorade 2) TRANSPORTATION on the Day of Your Exam A responsible adult MUST be present with you at Check In prior to your colonoscopy and REMAIN in the endoscopy area until you are discharged. You are NOT ALLOWED to drive, take a taxi or bus, or leave the Endoscopy Center ALONE. If you do not have a responsible food service driver (family member or friend) withyou to take you home, your exam cannot be done with sedation and will be cancelled. Please bring a list of all of your current medications, including any Vuzr-ghd-Irnfjpo medications with you. Medications If you take insulin, diabetic medications or blood thinners such as Coumadin (warfarin), Plavix (clopidogrel), Ticlid (ticlopidine hydrochloride), Agrylin (anagrelide), Xarelto (Rivaroxaban), Pradaxa(Dabigatran), Eliquis (Apixaban), and Effient (Prasugrel). You MUST call the doctors who orders those medicines for instructions on altering the dosage before your colonoscopy. All other medications should be taken the day of the exam with a sip of water including ASPIRIN. Five (5) Days Before Your Colonoscopy Do NOT take medicines that stop diarrhea - such as Imodium, Kaopectate, or Pepto Bismol. Do NOT take fiber supplements - such as Metamucil, Citrucel, or Perdiem. Do NOT take products that contain iron - such as multi-vitamins (the label lists what is in the products). Three (3) Days Before Your Colonoscopy Do NOT eat high-fiber foods - such as popcorn, beans, seeds (flax, sunflower, quinoa), multigrain bread, nuts, salad/vegetables, or fresh and dried fruit. 1 Bowel Preparation Instructions for: Miralax-Gatorade Preparations One (1) Day Before Your Colonoscopy Only drink clear liquids the ENTIRE DAY before your colonoscopy. Do NOT eat any solid foods. Drink at least 8 ounces of clear liquids every hour after waking up. The clear liquids you can drink include: Clear Liquid (NO RED LIQUIDS) DO NOT DRINK Gatorade, Pedialyte or Powerade Clear broth or bouillon Coffee or tea (no milk or non-dairy creamer) Carbonated and non-carbonated soft drinks Marcus-Aid or other fruit flavored drinks Strained fruit juices (no pulp) Jell-O, popsicles, hard candy Water Alcohol Milk or non-dairy creamers Noodles or vegetables in soup Juice with pulp Liquid you cannot see through Do not use tobacco/vaping products Mix 1/2 of Miralax bottle (119 grams) in each 32 ounces of Gatorade bottle until dissolved. Keep cool in the refrigerator. DO NOT ADD ICE. The bowel preparation solution will be consumed in two parts. Part 1 5:00 PM - Evening before your colonoscopy Take 4 Dulcolax tablets. 6 PM - Evening before your colonoscopy Drink 32 oz. of the mixed solution. Drink an 8 oz. glass of bowel preparation every 15 minutes for a total of 4 glasses. Fifteen (15) minutes later, drink an 8 oz. glass of of clear liquids every 15 minutes for a total of 2 glasses. You may continue to drink clear liquids till midnight. Part 2 On the day of your colonoscopy you may drink clear liquids up to (three) 3 hours prior to procedure. 4 1/2 hours before your colonoscopy Take another 32 oz. bottle of mixed solution. Drink an 8 oz. glass of bowel prep every 15 minutes for a total of 4 glasses. Fifteen (15) minutes later, drink an 8 oz. glass of clear liquids every 15 minutes for a total of 2glasses. You may continue to drink clear liquids up to (three) 3 hours before your exam. 2 04/2019 documented [facility] History of Present illness Narrative* Julien Cameron MD - 08/17/2022 8:11 AM EDT VIRTUAL VISIT NEW PATIENT NAME: Xiomara NULL [facility] NO: [id number] DATE: 08/17/2022 REASON FOR VISIT Xiomara NULL [id number] has requested a video telemedicine initial consultation at the request of Julien Cameron. Xiomara NULL verbalized informed consent to proceed with the video telemedicine initial consultation. Xiomara NULL was informed that the details of this video visit would be recorded as part of their electronic medical record. My recommendations will be conveyed to the consulting provider by way of shared electronic medical record, fax, or U.S. Mail. I have communicated my name and active licensure. The patient's identity and physical location wereverified at the time of this visit. Either the patient or their legal motor vehicle field representative has been informed of the risks and benefits of -- and alternatives to -- treatment through a remote evaluation andconsents to proceed with the evaluation remotely. Patient location at time of call: [place] Patient presents with: Crohns PRESENTING COMPLAINT Xiomara NULL is a 26 year old female with history of Crohn's diagnosed in 2013. At the time had diarrhea with some blood, abdominal pain and weight loss. Diagnosed with Crohn's and started lialda with some improvement, but continued to have intermittent symptoms. Required prednisone two times, but had many side effects including weight gain, irritability and insomnia. Developed a perianal abscess and started humira. She did not feel well mentally and physically on humira. Remained on medication for 1-2 years and did not have abscess, but continued to have intermittent symptoms. By 2017 she wanted to stop humira and take a dietary approach. She went strict glutenfree, dairy free diet and improved. Discontinued humira and off treatment since 2017, rarely has meenakshi rrhea. Previously took a lot of supplements and natural remedies (turmeric, Boswellia, fish oil, bone broth) When she has a typical flare up it is characterized by pain in the RLQ or LUQ that lasts a few hours. The pain is sharp, constant, localized, taking bone broth helps. Can be triggered by food that has gluten or dairy. The RLQ pain occurs twice a month, the LUQ once a week. Last saw Dr. Shah in 2020 at which time she was with first child. Had uncomplicated vaginal delivery. Remainedoff meds post-delivery Patient is again now. Currently 21 weeks . Due in December. No complications. DeniesGI symptoms. Currently has 1 bm/d Symptoms are the same as before . Last delivery was vaginal. No fistula symptoms. When she made the appointment for today she did have some pain in the perianal area, but only lasted a few days. Sees an [facility] doctor. Thinks may want to have another child after this. Denies joint pains, oral ulcers, skin rash, or vision changes. Denies family history of IBD. Avoids gluten and dairy in diet, but otherwise not taking any natural supplements. EUA 2016: OPERATIVE FINDINGS: Anterior internal opening extending to left lateral ischiorectal rectal area with chronic abscess cavity, placement of draining seton performed, presence of sentinel tag anteriorly and a posterior anal skin tag. IBD History Template Diagnosis Crohn's Disease: Date of diagnosis (year): 2013 Phenotype Location affected: ileum colon Behavior: inflammatory Perianal disease: yes Prior Medications/Reason for Switch Surgery: No: Thiopurines: No Methotrexate: No Biologics: Yes - adalimumab, reason for switch: intolerance or side effect Small molecules: No Current Medications None Prior Complications and Extraintestinal Manifestations Clostridium difficile: no Thrombosis: no Ocular (Uveitis, Episcleritis): no Dermatologic (Pyoderma gangrenosum, Erythema nodosum): no Arthropathy/Arthralgia: no Oral ulcers: no Primary Sclerosing Cholangitis: no Other: no Labs TB Status: Unknown Hepatitis B Status: Unknown TPMT: Unknown Current Clinical Symptoms # of bowel movements daily: 1 # of liquid stools daily: 0 Consistency: formed Bloody bowel movements: no Urgency: no Abdominal pain: no Abdominal distention: no Nausea/vomiting: no Weight loss over last 3 months: no General well-being: very well CURRENT MEDICATIONS Current Outpatient Medications Medication Sig Dispense Refill multivit with calcium,iron,min (DAILY VITAMINS FOR WOMEN ORAL) Take 50 mg by mouth once daily. No current facility-administered medications for this visit. Penicillins Labs TB Status: Unknown Hepatitis B Status: Unknown TPMT: Unknown Recent Labs: CBC: WBC (k/uL) Date Value 08/24/2021 7.65 06/04/2019 5.83 Hematocrit (%) Date Value 08/24/2021 42.8 MCV (fL) Date Value 08/24/2021 89.9 Platelet Count (k/uL) Date Value 08/24/2021 422 (H) Lymphocytes % (%) Date Value 08/24/2021 18.7 Hepatic Function Panel: Albumin (g/dL) Date Value 08/24/2021 4.5 Bilirubin, Total (mg/dL) Date Value 08/24/2021 <0.2 (L) Alkaline Phosphatase (U/L) Date Value 08/24/2021 143 (H) AST (U/L) Date Value 08/24/2021 23 ALT (U/L) Date Value 08/24/2021 27 Protein, Total (g/dL) Date Value 08/24/2021 7.4 PAST MEDICAL HISTORY PAST MEDICAL HISTORY Diagnosis Date Anemia Anxiety Crohn's disease (HCC) 06/09/19: Seeing GI, no medications at this time PAST SURGICAL HISTORY PAST SURGICAL HISTORY Procedure Laterality Date I & D OF ANAL ABSCESS, SIMPLE 10/22/2015 I&D ABSC; COMPL OR MULTI 08/2015 for fistula repair secondary to crohns FAMILY HISTORY FAMILY HISTORY Problem Relation Age of Onset other (leukemia) Maternal Grandfather other (leukemia) Maternal Aunt states multiple family members with same type of leukemia Hypertension Maternal Uncle Hyperlipidemia Maternal Uncle Asthma Maternal Uncle other (leukemia) Maternal Uncle Breast Cancer Other diagnosed young age unknown SOCIAL HISTORY Social History Tobacco Use Smoking status: Never Smokeless tobacco: Never Vaping Use Vaping Use: Never used Substance Use Topics Alcohol use: Not Currently Comment: social Drug use: No ROS EyesNegative for vision changes, diplopia or epiphora. Ears, Mouth, nose, throat:No problems Cardiovascular: No Problems Respiratory: Negative for cough, wheezing and shortness of breath Gastrointestinal : No problems Genitourinary: Negative Musuloskeletal: Normal Integumentary: no rashes, lesions, or jaundice Neurological: No history of neurologic problems Endocrine: Negative for cold or heat intolerance, polyuria, polydipsia and goiter. Psychiatric: Cooperative and agreeable Allergic/ Immunologic: Negative All others negative PHYSICAL EXAMINATION General: alert and appropriate, in no distress and well-hydrated, well nourished, Psych: Appropriate mood and interaction Skin: no rash noted, Head: normocephalic, no abnormality or lesion noted, Eyes: visual acuity is grossly normal, no injection,, and EOMI, Ears: external ears normal without erythema or edema, Nose: external nose normal without rhinorrhea, Oropharynx: moist mucus membranes, no tonsillar hypertrophy/exudate, uvula midline and pharynx non-erythematous, lips, teeth and gums are without obvious lesion, Neck: full ROM, no cervical LNs noted, Respiratory: breathing non-labored, and no grunting/flaring/retractions, Chest: equal chest rise with normal respiratory effort, Abdomen: flat appearing. Visible protrusions or hernias: No Incisions/scars: None Areas of pain/tenderness: Denies Neuro: Patient seen sitting with normal appearing strength and coordination. No focal motor deficits. MRE 05/25/20: MILD ACTIVE INFLAMMATORY SMALL BOWEL CROHN'S DISEASE INVOLVING THE TERMINAL ILEUM WITH MILD LUMINAL NARROWING. NO STRICTURE IDENTIFIED. NO EVIDENCE OF PENETRATING DISEASE. SMALL AMOUNT OF FREE FLUID IN THE PELVIS LIKELY PHYSIOLOGIC. CHRONIC THICKENING AND DILATATION OF THE APPENDIX UNCHANGED FROM PRIOR CTS. CT Ab/Pelvis 12/20/16: 1. Possible mild residual wall thickening of the terminal ileum which could indicate mild ileitis related to inflammatory bowel disease. No evidence of obstruction. 2. Chronic dilatation of the appendix, likely related to chronic inflammatory bowel disease. Correlate clinically for any acute signs of acute appendicitis. CT Ab/Pelvis 03/10/16: Findings most consistent with Crohn's flaring evident with acute terminal ileitis and wall thickening of some of the mid bowel loops. The appendix appears abnormal likely inflamed due to Crohn's disease as seen on the prior CT from 09/03/2015. However, acute appendicitis cannot be fully excluded. Colonoscopy 06/15/20: No masses on digital rectal exam The rectum, sigmoid colon, descending colon and transverse colon appeared normal. There is mildly eroded, granular and nodular mucosa scattered in the ascending colon and in the cecum. Biopsies were taken with a cold forceps for histology. In the terminal ileum, the mucosa for the most distal 5 cm was moderately congested, eroded, and granular with an inflammatory polyp present. No stricture or deep ulcer. The terminal ileum proximal to this showed scattered erosions but was otherwise normal. Biopsies were taken with a cold forceps for histology 5, 15 and 30 cm from the IC valve, placed in separate jars. Path: 1. Ileum, 30 cm proximal to valve, biopsy (A) - Small intestinal mucosa with no significant pathologic change. - No pyloric gland metaplasia, granulomas or epithelial dysplasia. 2. Ileum, 15 cm proximal to valve, biopsy (B) - Small intestinal mucosa with small non-necrotizing granulomas. - No pyloric gland metaplasia or epithelial dysplasia. 3. Ileum, 15 cm proximal to valve, biopsy (C) - Chronic active enteritis with reactive lymphoid hyperplasia (Peyer's Patches) and reactive epithelial changes. - No pyloric gland metaplasia, granulomas, or epithelial dysplasia. 4. Colon, ascending, biopsy (D) - Patchy active colitis with focal mild architectural distortion and mucosal erosion. - No granulomas or epithelial Assessment IMPRESSION 26 yo woman history of Crohn's ileocolitis complicated by perianal disease in the past (not active currently) previously treated with humira (stopped due to intolerance) and 5-ASA currently on no therapy with no symptoms, but 21 weeks presenting to establish care. Patient will need to reassess disease activity after delivery. For now will check calprotectin as a baseline biomarker when feeling well and refer to IBD RD. Patient following with [facility] and previously had vaginal delivery despite history of perianal disease. PLAN - Colonoscopy post-delivery - Calprotectin now to establish baseline - Referral to RD for dietary counseling I spent a total of 45 minutes on the date of the service which included preparing to see the patient, [id number] patient care, completing clinical documentation, obtaining and/or reviewing separately obtained history, performing a medically appropriate examination, counseling and educating the pat ient/family/caregiver, ordering medications, tests, or procedures, communicating with other HCPs (not separately reported), independently interpreting results (not separately reported), communicatingresults to the patient/family/caregiver, and care coordination (not separately reported). I have confirmed and edited as necessary, the PFSH and ROS obtained by others. I will communicate my recommendations and prescriptions to the patient's primary care provider. Unrelated to E/M, telemedicine, or virtual visit service provided within previous 7 days. No E/M service or procedure anticipated within next 24 hours. Julien Cameron MD August 17, 2022 8:11 AM documented in this encounterFair[facility]01-09-2023 NotePap Smear Specimen AdequacyJanuary 2022 12:44pmComment.Satisfactory for evaluation. No endocervical component is identified.[facility] INTER[facility]ACED A#[id number]'S Hospital Of ColumbusComment on above:Satisfactory for evaluation. No endocervical component is identified.08-25-2021 Miscellaneous Notes* Telephone Encounter - Anjelica Scott LPN - 08/25/2021 3:10 PM EDT Pt rtn'd call, results provided to pt. * Telephone Encounter - Kari Watson LPN - 08/25/2021 1:48 PM EDT Left message for patients lab results * Telephone Encounter - Kari Watson LPN - 08/25/2021 1:47 PM EDT ----- Message from Germain Leyva DO sent at 08/25/2021 10:56 AM EDT ----- Fine. Francois fry documented in this encounterFairfield Medical Center03-17-2022 NoteHNO ID: [id number] Author: Germain Leyva, DO Service: ? Author Type: Physician Type: Progress Notes Filed: 07/28/2021 11:21 PM Note Text: VIRTUAL VISIT PROGRESS NOTE This is a virtual visit using [employer] video visit. It required patient-provider interaction for the medical decision making as documented below. Xiomara NULL is a 25 year old female seen for chest xr order. Patient states that years ago she had a CT due to crohns and a lung nodule was found incidentally on the left. Patient was advised to have rechecked. Patient would like order to have rechecked now since it has been several years. HISTORY REVIEWED (electronic chart updated): PAST MEDICAL HISTORY Diagnosis Date - Anemia - Anxiety - Crohn's disease (HCC) 06/09/19: Seeing GI, no medications at this time PAST SURGICAL HISTORY Procedure Laterality Date - I AND D OF ANAL ABSCESS, SIMPLE 10/22/2015 - IANDD ABSC; COMPL OR MULTI 08/2015 for fistula repair secondary to crohns FAMILY HISTORY Problem Relation Age of Onset - other (leukemia) Maternal Grandfather - other (leukemia) Maternal Aunt states multiple family members with same type of leukemia - Hypertension Maternal Uncle - Hyperlipidemia Maternal Uncle - Asthma Maternal Uncle - other (leukemia) Maternal Uncle - Breast Cancer Other diagnosed young age unknown Social History Tobacco Use - Smoking status: Never Smoker - Smokeless tobacco: Never Used Vaping Use - Vaping Use: Never used Substance Use Topics - Alcohol use: Not Currently Comment: social - Drug use: No Current Outpatient Medications Medication Sig - multivit with calcium,iron,min (DAILY VITAMINS FOR WOMEN ORAL) Take 50 mg by mouth once daily. No current facility-administered medications for this visit. ALLERGIES Allergen Reactions - Penicillins Hives ASSESSMENT: (R91.1) Nodule of left lung (primary encounter diagnosis) (Z13.220) Screening for hyperlipidemia (Z13.29) Screening for thyroid disorder ASSESSMENT/PLAN: 1. Nodule of left lung - ICD9: 793.11, ICD10: R91.1 (primary diagnosis) - Obtain XR to recheck finding on old CT - XR CHEST 2V FRONTAL/LAT 2. Screening for hyperlipidemia - ICD9: V77.91, ICD10: Z13.220 - CBC + DIFF - COMP METABOLIC PANEL - LIPID PANEL BASIC - URINALYSIS, WITH MICROSCOPIC 3. Screening for thyroid disorder - ICD9: V77.0, ICD10: Z13.29 - TSH BLD Germain Leyva DO Attestation: Scribe Statement: Skyler Soto am scribing for, and in the presence of, Germain Leyva DO July 28, 2021 10:50 AM. Physician Statement: I, Germain Leyva DO, personally performed the services described in the documentation, as scribed by Natalia Puente in my presence, and it is both accurate and complete July 28, 2021 10:56 AM.[facility]10-03-2017 History of Past illness Narrative* Problem Noted Date Resolved Date Anxiety 02/13/2017 01/08/2018 Depression 02/13/2017 01/08/2018 Anemia 10/13/2015 documented as of this encounter (statuses as of 08/25/2021) [facility]10-03-2017 History of Past illness Narrative* Problem Noted Date Resolved Date Anxiety 02/13/2017 01/08/2018 Depression 02/13/2017 01/08/2018 Anemia 10/13/2015 documented as of this encounter (statuses as of 08/17/2022) [facility]10-03-2017 History of Past illness Narrative* Problem Noted Date Diagnosed Date Resolved Date Anxiety 02/13/2017 01/08/2018 Depression 02/13/2017 01/08/2018 Anemia 10/13/2015 documented as of this encounter (statuses as of 04/12/2023) [facility]10-03-2017 History of Past illness Narrative* Problem Noted Date Diagnosed Date Resolved Date Anxiety 02/13/2017 01/08/2018 Depression 02/13/2017 01/08/2018 Anemia 10/13/2015 documented as of this encounter (statuses as of 04/18/2023) [facility] History of Past illness Narrative* Problem Noted Date Diagnosed Date Resolved Date Anxiety 02/13/2017 01/08/2018 Depression 02/13/2017 01/08/2018 Anemia 10/13/2015 documented as of this encounter (statuses as of 04/20/2023) [facility] History of Past illness Narrative* Problem Noted Date Diagnosed Date Resolved Date Anxiety 02/13/2017 01/08/2018 Depression 02/13/2017 01/08/2018 Anemia 10/13/2015 documented as of this encounter (statuses as of 07/27/2023) [facility] + Plan note No data available for this section [facility] Evaluation note* Diagnosis Encounter for screening for COVID-19 documented in this encounter [facility] note* Diagnosis Encounter for screening for COVID-19 documented in this encounter [facility] note* Diagnosis Encounter for screening for COVID-19 documented in this encounter [facility] note* Diagnosis Onset Date Resolution Status Anxiety acute Crohn's disease acute Hx of depression, currently acute acute Supervision of high risk , antepartum acute [facility] Work Phone: Evaluation note* Diagnosis Crohn's disease of small and large intestines with complication (HCC)- Primary and not yet delivered in second trimester documented in this encounter [facility] note* Diagnosis Onset Date Resolution Status Anxiety acute Crohn's disease acute Hx of depression, currently acute acute Supervision of high risk , antepartum acute Anxiety acute Crohn's disease acute Hx of depression, currently acute acute Supervision of high risk , antepartum acute Anxiety acute Crohn's disease acute Hx of depression, currently acute acute Supervision of high risk , antepartum acute Anxiety acute Crohn's disease acute Hx of depression, currently acute acute Supervision of high risk , antepartum acute [facility] Work Phone: Evaluation note* Diagnosis Onset Date Resolution Status Anxiety acute Crohn's disease acute Hx of depression, currently acute acute Supervision of high risk , antepartum acute Anxiety acute Crohn's disease acute Hx of depression, currently acute acute Supervision of high risk , antepartum acute Anxiety acute Crohn's disease acute Hx of depression, currently acute acute Supervision of high risk , antepartum acute Refuses tetanus, diphtheria, and acellular pertussis (Tdap) vaccination resolved Anxiety acute Crohn's disease acute Hx of depression, currently acute acute Supervision of high risk , antepartum acute Refuses tetanus, diphtheria, and acellular pertussis (Tdap) vaccination resolved Anxiety acute Crohn's disease acute Hx of depression, currently acute acute Supervision of high risk , antepartum acute Anxiety acute Crohn's disease acute Hx of depression, currently acute acute Supervision of high risk , antepartum acute Anxiety acute Crohn's disease acute Hx of depression, currently acute acute Supervision of high risk , antepartum acute [facility] Work Phone: Evaluation note* Diagnosis Onset Date Resolution Status Anxiety acute Crohn's disease acute Hx of depression, currently acute acute Supervision of high risk , antepartum acute Anxiety acute Crohn's disease acute Hx of depression, currently acute acute Supervision of high risk , antepartum acute Anxiety acute Crohn's disease acute Hx of depression, currently acute acute Supervision of high risk , antepartum acute Refuses tetanus, diphtheria, and acellular pertussis (Tdap) vaccination resolved Anxiety acute Crohn's disease acute Hx of depression, currently acute acute Supervision of high risk , antepartum acute Refuses tetanus, diphtheria, and acellular pertussis (Tdap) vaccination resolved Anxiety acute Crohn's disease acute Hx of depression, currently acute acute Supervision of high risk , antepartum acute Anxiety acute Crohn's disease acute Hx of depression, currently acute acute Supervision of high risk , antepartum acute Anxiety acute Crohn's disease acute Hx of depression, currently acute acute Supervision of high risk , antepartum acute Anxiety acute Crohn's disease acute Hx of depression, currently acute acute Supervision of high risk , antepartum acute [facility] Work Phone: Evaluation note* Diagnosis Onset Date Resolution Status Anxiety acute Crohn's disease acute Hx of depression, currently acute acute Supervision of high risk , antepartum acute Anxiety acute Crohn's disease acute Hx of depression, currently acute acute Supervision of high risk , antepartum acute Anxiety acute Crohn's disease acute Hx of depression, currently acute acute Supervision of high risk , antepartum acute Refuses tetanus, diphtheria, and acellular pertussis (Tdap) vaccination resolved Anxiety acute Crohn's disease acute Hx of depression, currently acute acute Supervision of high risk , antepartum acute Refuses tetanus, diphtheria, and acellular pertussis (Tdap) vaccination resolved Anxiety acute Crohn's disease acute Hx of depression, currently acute acute Supervision of high risk , antepartum acute Anxiety acute Crohn's disease acute Hx of depression, currently acute acute Supervision of high risk , antepartum acute Anxiety acute Crohn's disease acute Hx of depression, currently acute acute Supervision of high risk , antepartum acute Anxiety acute Crohn's disease acute Hx of depression, currently acute acute Supervision of high risk , antepartum acute Anxiety acute Crohn's disease acute Hx of depression, currently acute acute Spontaneous onset of labor a cute Supervision of high risk , antepartum acute (spontaneous vaginal delivery) acute [facility] Work Phone: Evaluation note* Diagnosis Crohn's disease of small intestine without complication (HCC)- Primary Regional enteritis of small intestine Crohn's disease of small and large intestines with complication (HCC) [facility] Onset Date Resolution Status Admit Date History of depression, currently acute J 2024 2:47pm acute November 07 2:47pm Supervision of normal acut e November 07, 2024 2:47pm Crohn's disease chronic October 2:47pm [facility] Work Phone: Hospital Discharge instructions No data available for this section [facility] Progress note No data available for this section [facility] Progress note Author Stephany Lehman [facility] Note Date/Time January 21, 2025 10:16am [facility] [address] [place] [address], [address] [place] [id number] OFFICE VISIT Date of Service: 01/21/25 MR#: [id number] Acct: [id number] Name: XIOMARA NULL Rep #: [id number] : 1995 Provider: HENOK Lehman Age/Sex: 29/F Location: [facility] Status: Signed Intake Vital Signs 12/03/24 13:51 01/02/25 08:32 01/21/25 10:06 01/21/25 10:09 Height 5 ft 4 in 5 ft 4 in 5 ft 4 in 5 ft 4 in Weight: 161 lb 1 oz BMI 27.6 BP 113/76 Intake Visit Reasons: 21 WK OB Chief Complaint: 21 Week 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 Laboratory 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 Required: No Is patient in pain?: No Allergies Penicillins Allergy (Intermediate, Verified 01/21/25 10:05) Hives Medications ?Medication ?Instructions ?Recorded ?Confirmed ?Type multivitamin no.47-iron fum 27 cap PO 01/21/25 History mg-folate no.1 1 mg-dha 300 mg capsule (PNV-DHA) Bacillus coagulans 800 million cell PO 10/24/24 History cell tablet acetylcysteine 600 mg capsule (NAC) 600 mg PO QDAY 01/21/25 History calcium 300 mg-D3 25 mcg-magnesium tab PO 10/24/2403/07 History 66 mg-K2 37.5 mcg-herbal tablet (Alive Calcium-Vitamin D3-K2) magnesium citrate 125 mg capsule 125 mg PO QDAY 01/21/25 History zinc sulfate 66 mg tablet (Zinc-15) 66 mg PO QDAY 10/1201/21/25 History Last Menstrual Period: 09/05/24 Zika: Zika virus screening: Negative : No PFSH PFSH Medical History depression Anxiety Crohn's disease Family History Father Hypertension Brother Hypertension Mother Thyroid disorder Grandfather Cancer Leukemia Aunt Cancer Leukemia Uncle Cancer Leukemia Aunt Liver cancer Social History adopted: No household members: spouse and children housing: house number of children: 2 current occupation: [employer] current occupational exposures/hazards: No pets and animals: Yes pets and animals: dog(s) history of recent travel: No sexually active: Yes Smoking Status: Never smoker second hand exposure: No alcohol intake: never substance use type: does not use diet: gluten free well-balanced diet: daily or most days caffeine: Yes Type: coffee Number of servings: 1 eating out: 1-3 times/week during the past year weight has: remained stable what type of physical activity do you participate in: walking and weight training frequency: 5-6 times per week duration: 30-45 minutes/day morena/mormonism: Yazidism seatbelt use: always do you feel safe at home: Yes additional social history: : Vincent melgar History 3 Elective abortions Hx Para 2 Spontaneous abortions 0 Hx # Term Pregnancies 2 Ectopic pregnancies Hx # Pregnancies Multiple births # of living children 2 Past Pregnancies Del. Date Name GA/Weeks Outcome Route Bth Weight Gen Labor Lgth Anesthesia Del Locatn Provider FOB 04/04/21 Jones 39 live - full term 7lbs 10oz Male ep idural [facility] SM Vincent 12/10/22 Miriam 38 live - full term 6lbs 10oz Female none [facility] Aleshia Bear CNM Vincent Delivery Date: 04/04/21 Last Updated by: Maryellen Torrez PROM Delivery Date: 12/10/22 Last Updated by: Linda Scruggs see problem list for complications. HPI 21 WK OB Details: XIOMARA NULL is a 29 year old who presents for routine OB visit. OB Visit GEORGE Calculator Estimated Delivery Date Method Current WG Current Estimate 06/12/25 LMP (Certain) 19w 5d Other Estimates 06/06/25 Ultrasound #2 20w 4d Expected Delivery Route/Plan Labor Preferences- CB/BF classes: [] labor support person: [] labor intervention preferences: [] pain management options preferred: [] cut cord/dad catch: [] : [] PP control planned: [] discussed possible routes of delivery and associated risks: [] special requests: [] Specific Issue/Plans Covid status: [] Flu vaccine: [] Tdap vaccine: [] Rhogam: [] LARC form signed: [] Problem list reviewed and updated with the most current plan of care details and appropriate orders placed. Relevant counseling for the gestational age provided. Continue routine care and follow up unless otherwise noted in visit notes/problem list details Initial Weight: 151 lb Date -?-?-?-?-?-?-?-?-?-?-?-?- EGA Weight BP Urine Prot -?-?-?-?-?-?-?-?-?-?-?-?- Glucose FHR FuHt Pres Dilation -?-?-?-?-?-?-?-?-?-?-?-?- Effaced St Visit Note 11/07/24 -?-?-?-?-?-?-?-?-?-?-?-?- 9w 0d 151 lb 4 oz (+4 oz) 121/76 -?-?-?-?-?-?-?-?-?-?-?-?- 175 -?-?-?-?-?-?-?-?-?-?-?-?- LC-2.71cm con wi th LMP. declines nipt. 12/03/24 -?-?-?-?-?-?-?-?-?-?-?-?- 12w 5d 153 lb 2 oz (+2 lb 2 oz) 117/76 Negative -?--?-?-?-?-?-?-?-?-?-?-?- Negative 165 -?-?-?-?-?-?-?-?-?-?-?-?- JV- CRL today is measuring 13 weeks 4 days however first scan per LC was measuring closer to LMP. no change in due date but did have an abnormal free T4 back in 2022 that needs repeated today. 01/02/25 -?-?-?-?-?-?-?-?-?-?-?-?- 17w 0d 158 lb 2 oz (+7 lb 2 oz) 121/76 Negative -?-?-?-?-?-?-?-?-?-?-?-?- Negative 146 -?-?-?-?-?-?-?-?-?-?-?-?- LC- feeling flut ters. no vb/cramping. feeling well. tsh normal. LC- feeling flutters. no vb/ cramping. feeling well. free t4 normal. 01/21/25 -?-?-?-?-?-?-?-?-?-?-?-?- 19w 5d 161 lb 1 oz (+10 lb 1 oz) 113/76 Negative -?-?-?-?-?-?-?-?-?-?-?-?- Negative 145 -?-?-?-?-?-?-?-?-?-?-?-?- MH-No VB, LOF. F eeling flutters ACOG First Trimester First Trimester: Desire for , Alcohol, Tobacco Cessation, Illicit/Recreational Drug/Substance Use, Intimate Partner Violence, Barriers to care, Unstable Housing, Communication Barriers, Environmental/Work Hazards, Anticipated Course of Care, Toxoplasmosis Precations, Use of Any medications, Sexual activity, Exercise, Dental Care, Sauna/Hot tub use, Seat Belt use, Childbirth classes/Hospital facilities, Travel, Indications for Ultrasound and Screening for Aneuploidy; Discussed Second Trimester Second Trimester: Signs and Symptoms of Labor, Selecting a care provider, Reproductive Life Planning & Contreception, Care Planning, Depression/Anxiety and Intimate Partner Violence; Discussed Tobacco Cessation Third Trimester Third Trimester: Pain Management Plans, Labor support person(s), Immediate Larc, Signs and Symptoms of Preeclampsia, Infant Feeding No , [place] Education, Family Medical Leave or Disability Forms and Depression; Discussed Circumcision preference and Discussed Intimate Partner Violence ROS Const Reports system reviewed and no additional complaints, except as documented GI Denies abdominal pain, Denies nausea and Denies vomiting Exam Const General: cooperative Nutritional Appearance: well nourished GI Palpation: soft, nontender and other (gravid) Results POC Urinalysis 2 Dip (Clinic) Office Urine Glucose Negative Last Edit by Jessica Nolasco on 01/21/25 10 :09 Office Urine Protein Negative Last Edit by Jessica Nolasco on 01/21/25 10 :09 Coding Level of Care Code OB Routine Diagnoses Encounter for supervision of other normal in second trimester Z34.82 Normal : other normal Trimester: second trimester 19 weeks gestation of Z3A.19 Weeks of gestation: 19 weeks Abnormal thyroid uptake study R94.6 History of depression, currently O99.891; Z86.59 Crohn's disease with complication, unspecified gastrointestinal tract location K50.919 Digestive disease complication type: unspecified complication Gastrointestinal tract location: unspecified location Assessment and Plan Assessment and Plan (1) Supervision of normal : Status: Acute Qualifiers: Normal : other normal Trimester: second trimester Qualified Code(s): Z34.82 - Encounter for supervision of other normal , second trimester Comment: PRR , GEORGE 06/12/25; PC: Bob, : Vincent (2) : Status: Acute Qualifiers: Weeks of gestation: 19 weeks Qualified Code(s): Z3A.19 - 19 weeks gestation of Comment: Discussed genetic/carrier testing - declines. (3) Abnormal thyroid uptake study: Status: Acute Comment: normal free t4. (4) History of depression, currently : Status: Acute Comment: Was on Zoloft, no meds currently; Stable may desire to restart immediately pp (5) Crohn's disease: Status: Chronic Qualifiers: Digestive disease complication type: unspecified complication Gastrointestinal tract location: unspecified location Qualified Code(s): K50.919 - Crohn's disease, unspecified, with unspecified complications Orders: Orders POC Urinalysis 2 Dip (Clinic) Today Plan problem list reviewed and updated for most current plan of care and appropriate orders placed. Relevant counseling for the gestational age appropriate provided and ACOG education checklist updated. Continue routine care and follow up. 01/21/25 1016 <Electronically signed by Stephany ALANISC> Date _ Stephany ALANISC Cosigner Signature: Date (if applicable) CC: ~ [facility] Work Phone: Progress note Author Felicita Sweet [facility] Note Date/Time February 16, 2025 10 :15am [facility] [address] [place] [id number] OFFICE VISIT Date of Service: 02/16/25 MR#: [id number] Acct: [id number] Name: XIOMARA NULL Rep #: [id number] : 1995 Provider: JAYNE Sweet Age/Sex: 29/F Location: [facility] Status: Signed Intake Vital Signs 12/03/24 13:51 01/21/25 10:09 02/16/25 09:58 Height 5 ft 4 in 5 ft 4 in 5 ft 4 in Weight: 166 lb 3 oz BMI 28.5 BP 119/80 Intake Visit Reasons: 23wk3d ob Chief Complaint: 23wk 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 Laboratory Asst Required: No Is patient in pain?: No Allergies Penicillins Allergy (Intermediate, Verified 02/16/25 09:56) Hives Medications ?Medication ?Instructions ?Recorded ?Confirmed ?Type multivitamin no.47-iron fum 27 cap PO 02/16/25 History mg-folate no.1 1 mg-dha 300 mg capsule (PNV-DHA) Bacillus coagulans 800 million cell PO 10/24/24 History cell tablet acetylcysteine 600 mg capsule (NAC) 600 mg PO QDAY 02/16/25 History calcium 300 mg-D3 25 mcg-magnesium tab PO 10/24/2411/05 History 66 mg-K2 37.5 mcg-herbal tablet (Alive Calcium-Vitamin D3-K2) magnesium citrate 125 mg capsule 125 mg PO QDAY 02/16/25 History zinc sulfate 66 mg tablet (Zinc-15) 66 mg PO QDAY 10/1202/16/25 History Last Menstrual Period: 09/05/24 : No PFSH PFSH Medical History depression Anxiety Crohn's disease Family History Father Hypertension Brother Hypertension Mother Thyroid disorder Grandfather Cancer Leukemia Aunt Cancer Leukemia Uncle Cancer Leukemia Aunt Liver cancer Social History adopted: No household members: spouse and children housing: house number of children: 2 current occupation: [employer] current occupational exposures/hazards: No pets and animals: Yes pets and animals: dog(s) history of recent travel: No sexually active: Yes Smoking Status: Never smoker second hand exposure: No alcohol intake: never substance use type: does not use diet: gluten free well-balanced diet: daily or most days caffeine: Yes Type: coffee Number of servings: 1 eating out: 1-3 times/week during the past year weight has: remained stable what type of physical activity do you participate in: walking and weight training frequency: 5-6 times per week duration: 30-45 minutes/day morena/mormonism: Yazidism seatbelt use: always do you feel safe at home: Yes additional social history: : Vincent melgar History 3 Elective abortions Hx Para 2 Spontaneous abortions 0 Hx # Term Pregnancies 2 Ectopic pregnancies Hx # Pregnancies Multiple births # of living children 2 Past Pregnancies Del. Date Name GA/Weeks Outcome Route Bth Weight Infant Gen Labor Lgth Anes th esia Del Locatn Provider FOB 04/04/21 Jones 39 live - full term 7lbs 10oz Male ep idural [facility] SM Vincent 12/10/22 Miriam 38 live - full term 6lbs 10oz Female none [facility] Aleshia Bear [facility] Vincent Delivery Date: 04/04/21 Last Updated by: Maryellen Torrez PROM Delivery Date: 12/10/22 Last Updated by: Linda Scruggs see problem list for complications. HPI 23wk3d ob Details: XIOMARA NULL is a 29 year old who presents for routine OB visit. OB Visit GEORGE Calculator Estimated Delivery Date Method Current WG Current Estimate 06/12/25 LMP (Certain) 23w 3d Other Estimates 06/06/25 Ultrasound #2 24w 2d Expected Delivery Route/Plan Labor Preferences- CB/BF classes: [] labor support person: [] labor intervention preferences: [] pain management options preferred: [] cut cord/dad catch: [] : [] PP control planned: [] discussed possible routes of delivery and associated risks: [] special requests: [] Specific Issue/Plans Covid status: [] Flu vaccine: [] Tdap vaccine: [] Rhogam: [] LARC form signed: [] Problem list reviewed and updated with the most current plan of care details and appropriate orders placed. Relevant counseling for the gestational age provided. Continue routine care and follow up unless otherwise noted in visit notes/problem list details Initial Weight: 151 lb Date -?-?-?-?-?-?-?-?-?-?-?-?- EGA Weight BP Urine Prot -?-?-?-?-?-?-?-?-?-?-?-?- Glucose FHR FuHt Pres Dilation -?-?-?-?-?-?-?-?-?-?-?-?- Effaced St Visit Note 11/07/24 -?-?-?-?-?-?-?-?-?-?-?-?- 9w 0d 151 lb 4 oz (+4 oz) 121/76 -?-?-?-?-?--?-?-?-?-?-?-?- 175 -?-?-?-?-?-?-?-?-?-?-?-?- LC-2.71cm con wi th LMP. declines nipt. 12/03/24 -?-?-?-?-?-?-?-?-?-?-?-?- 12w 5d 153 lb 2 oz (+2 lb 2 oz) 117/76 Negative -?-?-?-?-?-?-?-?-?-?-?-?- Negative 165 -?-?-?-?-?-?-?-?-?-?-?-?- JV- CRL today is measuring 13 weeks 4 days however first scan per LC was measuring closer to LMP. no change in due date but did have an abnormal free T4 back in 2022 that needs repeated today. 01/02/25 -?-?-?-?-?--?-?-?-?-?-?-?- 17w 0d 158 lb 2 oz (+7 lb 2 oz) 121/76 Negative -?-?-?-?-?-?-?-?-?-?-?-?- Negative 146 -?-?-?-?-?-?-?-?-?-?-?-?- LC- feeling flut ters. no vb/cramping. feeling well. tsh normal. LC- feeling flutters. no vb/ cramping. feeling well. free t4 normal. 01/21/25 -?-?-?-?-?-?-?-?-?-?-?-?- 19w 5d 161 lb 1 oz (+10 lb 1 oz) 113/76 Negative -?-?-?-?-?-?-?-?-?-?-?-?- Negative 145 -?-?-?-?-?-?-?-?-?-?-?-?- MH-No VB, LOF. F eeling flutters 02/16/25 -?-?-?-?-?-?-?-?-?-?-?-?- 23w 3d 166 lb 3 oz (+15 lb 3 oz) 119/80 Negative -?-?-?-?-?-?-?-?-?-?-?-?- Negative 150 23 -?-?-?-?-?-?-?-?-?-?-?-?- KW- no vb/crampi ng. francois fm. discussed glucose ACOG First Trimester First Trimester: Desire for , Alcohol, Tobacco Cessation, Illicit/Recreational Drug/Substance Use, Intimate Partner Violence, Barriers to care, Unstable Housing, Communication Barriers, Environmental/Work Hazards, Anticipated Course of Care, Toxoplasmosis Precations, Use of Any medications, Sexual activity, Exercise, Dental Care, Sauna/Hot tub use, Seat Belt use, Childbirth classes/Hospital facilities, Travel, Indications for Ultrasound and Screening for Aneuploidy; Discussed Second Trimester Second Trimester: Signs and Symptoms of Labor, Selecting a care provider, Reproductive Life Planning & Contreception, Care Planning, Depression/Anxiety and Intimate Partner Violence; Discussed Tobacco Cessation Third Trimester Third Trimester: Pain Management Plans, Labor support person(s), Immediate Larc, Signs and Symptoms of Preeclampsia, Infant Feeding No , Education, Family Medical Leave or Disability Forms and Depression; Discussed Circumcision preference and Discussed Intimate Partner Violence ROS Const Reports system reviewed and no additional complaints, except as documented Eyes Reports system reviewed and no additional complaints, except as documented ENT Reports system reviewed and no additional complaints, except as documented Card Reports system reviewed and no additional complaints, except as documented Resp Reports system reviewed and no additional complaints, except as documented GI Reports system reviewed and no additional complaints, except as documented, Denies nausea and Denies vomiting Reports system reviewed and no additional complaints, except as documented Musc Reports system reviewed and no additional complaints, except as documented Skin/Breast Reports system reviewed and no additional complaints, except as documented Neuro Yes system reviewed and no additional complaints, except as documented Psych Reports system reviewed and no additional complaints, except as documented Endo Reports system reviewed and no additional complaints, except as documented Damian/Lymph Reports system reviewed and no additional complaints, except as documented Aller/Immun Reports system reviewed and no additional complaints, except as documented Exam Const General: cooperative, healthy appearing and no acute distress Orientation: alert, awake and oriented x3 Neck Neck: normal visual inspection and full ROM Resp Effort & Inspection: normal respiratory effort, able to speak in complete sentences and symmetric chest movement GI Inspection: normal to inspection Palpation: soft and other Other: gravid Skin General: no rashes or lesions noted Neuro General: patient alert, patient awake and patient oriented x3 Cognition: normal cognition Speech: speech normal Gait: normal gait Motor: muscle tone normal throughout Extrem General: normal to inspection and full ROM Psych Appearance: grossly normal Mental Status: mental status grossly normal Mood: congruent mood Affect: normal affect Speech and Movement: speech and movement normal Attitude: cooperative Thought Process: normal Thought Content: normal Judgment: judgment good Results POC Urinalysis 2 Dip (Clinic) Office Urine Glucose Negative Last Edit by Geraldine Hahn on 02/16/25 10:07 Office Urine Protein Negative Last Edit by Geraldine Hahn on 02/16/25 10:07 Coding Level of Care Code OB Routine Diagnoses Abnormal thyroid uptake study R94.6 Encounter for supervision of other normal in second trimester Z34.82 Normal : other normal Trimester: second trimester 23 weeks gestation of Z3A.23 Weeks of gestation: 23 weeks History of depression, currently O99.891; Z86.59 Crohn's disease with complication, unspecified gastrointestinal tract location K50.919 Digestive disease complication type: unspecified complication Gastrointestinal tract location: unspecified location Assessment and Plan Assessment and Plan (1) Abnormal thyroid uptake study: Status: Acute Comment: normal free t4. (2) Supervision of normal : Status: Acute Qualifiers: Normal : other normal Trimester: second trimester Qualified Code(s): Z34.82 - Encounter for supervision of other normal , second trimester Comment: PRR , GEROGE 06/12/25; PC: Bob, : Vincent (3) : Status: Acute Qualifiers: Weeks of gestation: 23 weeks Qualified Code(s): Z3A.23 - 23 weeks gestation of Comment: Discussed genetic/carrier testing - declines. (4) History of depression, currently : Status: Acute Comment: Was on Zoloft, no meds currently; Stable may desire to restart immediately pp (5) Crohn's disease: Status: Chronic Qualifiers: Digestive disease complication type: unspecified complication Gastrointestinal tract location: unspecified location Qualified Code(s): K50.919 - Crohn's disease, unspecified, with unspecified complications Orders: Orders POC Urinalysis 2 Dip (Clinic) Today CBC W/Diff, Automated Today Z34.82 - Encounter for supervision of other normal , second trimester, Z3A.23 - 23 weeks gestation of Glucose Challenge Gest 1H 50g Today Z13.1 - Encounter for screening for diabetes mellitus HIV Today Syphilis Antibodies Today Z34.82 - Encounter for supervision of other normal , second trimester, Z3A.23 - 23 weeks gestation of Plan Details Additional Comments: [employer] trimester education reviewed and updated. see problem list details for updated plan management information and see below for orders placed at this visit. GA appropriate handout given. 02/16/25 1015 <Electronically signed by Felicita mohan CNM> Date _ Felicita Sweet CNM Cosigner Signature: Date (if applicable) CC: ~ [employer] Work Phone: Reason for referral (narrative)* Outpatient Procedure (Routine) - Closed Specialty Diagnoses / Procedures Referred By Johnson clark Referred To Contact [facility] Diagnoses Crohn's disease of small and large intestines with complication (HCC) Procedures COLONOSCOPY DIAGNOSTIC COLONOSCOPY FLX DX W/COLLJ SPEC WHEN Julien Orosco MD [address] [place] [address] [facility] [address] [address] Referral ID Status Reason Start Date Expiration Date V isits Requested Visits Authorized [id number] Closed Auto-Generate d Referral 08/17/2022 08/18/2023 1 1 [facility] for referral (narrative)No reason for referral [facility] Work Phone: Reomif for visit Narrative* Outpatient Procedure (Routine) - Closed Specialty Diagnoses / Procedures Referred By Johnson t Referred To Contact [facility] Diagnoses Crohn's disease of small and large intestines with complication (HCC) Procedures COLONOSCOPY DIAGNOSTIC COLONOSCOPY FLX DX W/COLLJ SPEC WHEN Julien Orosco MD [address] [place] [address] [facility] [place] [address] [place] [id number] Referral ID Status Reason Start Date Expiration Date V isits Requested Visits Authorized [id number] Closed Auto-Generate d Referral 08/17/2022 08/18/2023 1 1 [facility] Summary Purpose Family History No Family History Records Found Relationship Condition Age at Onset Recorded Date/T murtaza father Hypertension Unknown brother Hypertension Unknown mother Disorder of thyroid Unknown grandfather Malignant neoplasm Unknown aunt Malignant neoplasm Unknown uncle Malignant neoplasm Unknown Relationship Condition Age at Onset Recorded Date/T murtaza father Hypertension Unknown brother Hypertension Unknown mother Disorder of thyroid Unknown grandfather Malignant neoplasm Unknown aunt Malignant neoplasm Unknown uncle Malignant neoplasm Unknown aunt Malignant neoplasm of liver Unknown Advance Directives No Advanced Directives Records FoundDocuments on File Type Date Recorded Patient Scales Inspector Expl anation Power of Higher Level Teaching Assistant Documents on File Type Date Recorded Patient Scales Inspector Expl anation Advance Directive(s) 06/04/2020 9:13 AM Advance Directive(s) 03/22/2017 1:33 PM Advance Directive Response Recorded Date/ Time Living Will No April 03 3:01pm Power of Higher Level Teaching Assistant No April 03, 2021 3:01pm Advance Directive Response Recorded Date/ Time Living Will No April 03, 2 021 4:01pm Power of Higher Level Teaching Assistant No April 03, 2021 4:01pm Advance Directive Response Recorded Date/ Time Name of Medical Power of Higher Level Teaching Assistant Vincent HOWARD December 10, 2022 4:05am Living Will Yes December 10, 2022 4:05am Power of Higher Level Teaching Assistant Yes December 10 4:05am Chief Complaint and Reason for Visit Chief Complaint NOB LMP 03/18/22 Reason for Visit Anxiety Crohn's disease Hx of depression, currently Supervision of high risk , antepartum Chief Complaint 13 WK OB est ob 17w est ob 21w est ob 25w Reason for Visit Anxiety Crohn's disease Hx of depression, currently Supervision of high risk , antepartum Anxiety Crohn's disease Hx of depression, currently Supervision of high risk , antepartum Anxiety Crohn's disease Hx of depression, currently Supervision of high risk , antepartum Anxiety Crohn's disease Hx of depression, currently Supervision of high risk , antepartum Chief Complaint est ob 21w est ob 25w est ob 29w est ob 31w est ob 33w est ob 35w est ob 36w (needs sunday) Reason for Visit Anxiety Crohn's disease Hx of depression, currently Supervision of high risk , antepartum Anxiety Crohn's disease Hx of depression, currently Supervision of high risk , antepartum Anxiety Crohn's disease Hx of depression, currently Supervision of high risk , antepartum Refuses tetanus, diphtheria, and acellular pertussis (Tdap) vaccination Anxiety Crohn's disease Hx of depression, currently Supervision of high risk , antepartum Refuses tetanus, diphtheria, and acellular pertussis (Tdap) vaccination Anxiety Crohn's disease Hx of depression, currently Supervision of high risk , antepartum Anxiety Crohn's disease Hx of depression, currently Supervision of high risk , antepartum Anxiety Crohn's disease Hx of depression, currently Supervision of high risk , antepartum Chief Complaint est ob 21w est ob 25w est ob 29w est ob 31w est ob 33w est ob 35w est ob 36w (needs sunday) est ob 37w (needs sunday) DECREASED MOVEMENT Reason for Visit Anxiety Crohn's disease Hx of depression, currently Supervision of high risk , antepartum Anxiety Crohn's disease Hx of depression, currently Supervision of high risk , antepartum Anxiety Crohn's disease Hx of depression, currently Supervision of high risk , antepartum Refuses tetanus, diphtheria, and acellular pertussis (Tdap) vaccination Anxiety Crohn's disease Hx of depression, currently Supervision of high risk , antepartum Refuses tetanus, diphtheria, and acellular pertussis (Tdap) vaccination Anxiety Crohn's disease Hx of depression, currently Supervision of high risk , antepartum Anxiety Crohn's disease Hx of depression, currently Supervision of high risk , antepartum Anxiety Crohn's disease Hx of depression, currently Supervision of high risk , antepartum Anxiety Crohn's disease Hx of depression, currently Supervision of high risk , antepartum Chief Complaint est ob 21w est ob 25w est ob 29w est ob 31w est ob 33w est ob 35w est ob 36w (needs sunday) est ob 37w (needs sunday) DECREASED MOVEMENT VAGINAL DELIVERY VAGINAL DELIVERY VAGINAL DELIVERY Reason for Visit Anxiety Crohn's disease Hx of depression, currently Supervision of high risk , antepartum Anxiety Crohn's disease Hx of depression, currently Supervision of high risk , antepartum Anxiety Crohn's disease Hx of depression, currently Supervision of high risk , antepartum Refuses tetanus, diphtheria, and acellular pertussis (Tdap) vaccination Anxiety Crohn's disease Hx of depression, currently Supervision of high risk , antepartum Refuses tetanus, diphtheria, and acellular pertussis (Tdap) vaccination Anxiety Crohn's disease Hx of depression, currently Supervision of high risk , antepartum Anxiety Crohn's disease Hx of depression, currently Supervision of high risk , antepartum Anxiety Crohn's disease Hx of depression, currently Supervision of high risk , antepartum Anxiety Crohn's disease Hx of depression, currently Supervision of high risk , antepartum Anxiety Crohn's disease Hx of depression, currently Spontaneous onset of labor Supervision of high risk , antepartum (spontaneous vaginal delivery) Chief Complaint Admit Date Amb Documentation October 24, 2024 11:3 8am *EST* NOB LMP 09/05, GEORGE 06/12November 07, 2024 2:47pm Reason for Visit Admit Date History of depression, mitesh blandon November 07, 2024 2:47pm November 07, 2024 2:47 pm Supervision of normal October 2:47pm Crohn's disease November 07, 2024 2:47 pm Chief Complaint Admit Date Amb Documentation October 24, 2024 11:3 8am *EST* NOB LMP 09/05, GEORGE 06/12November 07, 2024 2:47pm 13wk OB December 03, 2024 1:49 pm Reason for Visit Admit Date History of depression, mitesh blandon November 07, 2024 2:47pm November 07, 2024 2:47 pm Supervision of normal October 2:47pm Crohn's disease November 07, 2024 2:47 pm Abnormal thyroid uptake study December 03, 2024 1:49pm History of depression, mitesh blandon December 03, 2024 1:49pm December 03, 2024 1:49 pm Supervision of normal November 1:49pm Crohn's disease December 03, 2024 1:49 pm Chief Complaint Admit Date Amb Documentation October 24, 2024 11:3 8am *EST* NOB LMP 09/05, GEORGE 06/12November 07, 2024 2:47pm 13wk OB December 03, 2024 1:49 pm 17wk ob January 02, 2025 8: 30am Reason for Visit Admit Date History of depression, mitesh blandon November 07, 2024 2:47pm November 07, 2024 2:47 pm Supervision of normal October 2:47pm Crohn's disease November 07, 2024 2:47 pm Abnormal thyroid uptake study December 03, 2024 1:49pm History of depression, mitesh blandon December 03, 2024 1:49pm December 03, 2024 1:49 pm Supervision of normal November 1:49pm Crohn's disease December 03, 2024 1:49 pm Abnormal thyroid uptake study December 8:30am History of depression, mitesh blandon January 02, 2025 8:30am January 02, 2025 8: 30am Supervision of normal December 132024 8:30am Crohn's disease January 02, 2025 8: 30am Chief Complaint Admit Date Amb Documentation October 24, 2024 11:3 8am *EST* NOB LMP 09/05, GEORGE 06/12November 07, 2024 2:47pm 13wk OB December 03, 2024 1:49 pm 17wk ob January 02, 2025 8: 30am 21 WK OB January 21, 2025 9:59am Reason for Visit Admit Date History of depression, mitesh blandon November 07, 2024 2:47pm November 07, 2024 2:47 pm Supervision of normal October 2:47pm Crohn's disease November 07, 2024 2:47 pm Abnormal thyroid uptake study December 03, 2024 1:49pm History of depression, mitesh tly December 03, 2024 1:49pm December 03, 2024 1:49 pm Supervision of normal November 1:49pm Crohn's disease December 03, 2024 1:49 pm Abnormal thyroid uptake study December 8:30am History of depression, mitesh vallesy January 02, 2025 8:30am January 02, 2025 8: 30am Supervision of normal December 132024 8:30am Crohn's disease January 02, 2025 8: 30am Abnormal thyroid uptake study January 21, 2025 9:59am History of depression, mitesh tly January 21, 2025 9:59am January 21, 2025 9:59am [facility] Crohn's disease January 21, 2025 9:59am Chief Complaint Admit Date Amb Documentation October 24, 2024 11:3 8am *EST* NOB LMP 09/05, GEORGE 06/12November 07, 2024 2:47pm 13wk OB December 03, 2024 1:49 pm 17wk ob January 02, 2025 8: 30am wk5d ob January 21, 2025 9:59am 23wk3d ob February 16, 2025 9: 54am Reason for Visit Admit Date History of depression, mitesh blandon November 07, 2024 2:47pm November 07, 2024 2:47 pm Supervision of normal October 2:47pm Crohn's disease November 07, 2024 2:47 pm Abnormal thyroid uptake study December 03, 2024 1:49pm History of depression, mitesh tly December 03, 2024 1:49pm December 03, 2024 1:49 pm Supervision of normal November 1:49pm Crohn's disease December 03, 2024 1:49 pm Abnormal thyroid uptake study December 8:30am History of depression, mitesh blandon January 02, 2025 8:30am January 02, 2025 8: 30am Supervision of normal December 132024 8:30am Crohn's disease January 02, 2025 8: 30am Abnormal thyroid uptake study January 21, 2025 9:59am History of depression, mitesh blandon January 21, 2025 9:59am January 21, 2025 9:59am Supervision of normal Septembe 2024 9:59am Crohn's disease January 21, 2025 9:59am Abnormal thyroid uptake study February 9:54am History of depression, mitesh blandon February 16, 2025 9:54am February 16, 2025 9: 54am Supervision of normal February 16, 2025 9:54am Crohn's disease February 16, 2025 9: 54am Reason for Referral Specialty Diagnoses / Procedures Referred By Contnav t Referred To Contact Nutrition Diagnoses Crohn's disease of small and large intestines with complication (HCC) Procedures CONSULT TO NUTRITION THERAPY MEDICAL NUTRITION ASSMT&IVNTJ INDIV EACH 15 SC MEDICAL NUTRITION ASSMT&IVNTJ INDIV EACH 15 SC MEDICAL NUTRITION ASSMT&IVNTJ INDIV EACH 15 SC MEDICAL NUTRITION ASSMT&IVNTJ INDIV EACH 15 SC Julien Cameron MD [address] [place] [address] Referral ID Status Reason Start Date Expiration Date Visits Requested Visits Authorized [id number] Authorized PCP Requested Referral 08/17/2022 08/17/2023 1 1 Specialty Diagnoses / Procedures Referred By Contac t Referred To Contact [facility] Diagnoses Crohn's disease of small and large intestines with complication (HCC) Procedures COLONOSCOPY DIAGNOSTIC COLONOSCOPY FLX DX W/COLLJ SPEC WHEN PFRMD Julien Cameron MD [address] [place] [address] [facility] [address] [place] [address] Referral ID Status Reason Start Date Expiration Date Visits Requested Visits Authorized [id number] Pending Review Auto-Generat ed Referral 08/17/2022 08/18/2023 1 1 Additional Source Comments INFORMATION SOURCE (unrecogn ized section and content) DATE CREATED AUTHOR 07/21/2020 [facility] DATE CREATED AUTHOR AUTHOR'S ORGANIZ ATION 08/27/2021 [facility] DATE CREATED AUTHOR AUTHOR'S ORGANIZ ATION 01/18/2024 [facility] [place] DATE CREATED AUTHOR AUTHOR'S ORGANIZ ATION 01/23/2024 [facility] DATE CREATED AUTHOR AUTHOR'S ORGANIZ ATION 05/24/2024 [facility] DATE CREATED AUTHOR AUTHOR'S ORGANIZ ATION 01/25/2025 [facility] DATE CREATED AUTHOR AUTHOR'S ORGANIZ ATION 03/19/2025 [facility] Care Teams (unrecognized sec tion and content) Chemical Equipment Repairer Relationship Specialty Start Date End Date Lilia Tovar MD [address] [facility] [address] [place] [address] PCP - General Obstetrics Gynecology 12/09/20 Mercedes Dc MD [address] [facility] [address] [place] [address] 09/05/17 Dante Lambert MD [address] [place] [address] Specialist Gastroenterology 03/09/15 Chemical Equipment Repairer Relationship Specialty Start Date End Date Lilia Tovar MD [address] [place] [address] PCP - General Obstetrics Gynecology 12/09/20 Mercedes Dc MD [address] [facility] [address] [place] [address] 09/05/17 Dante Lambert MD [address] [place] [address] Specialist Gastroenterology 03/09/15 Chemical Equipment Repairer Relationship Specialty Start Date End Date Anni Horton PCP - General Family Practice 10/13/15 Chemical Equipment Repairer Relationship Specialty Start Date End Date Lilia Tovar MD [address] [place] [address] PCP - General Obstetrics Gynecology 12/09/20 Mercedes Dc MD [address] [facility] [address] [place] [address] 09/05/17 Dante Lambert MD [address] [place] [address] Specialist Gastroenterology 03/09/15 Chemical Equipment Repairer Relationship Specialty Start Date End Date Lilia Tovar MD [address] [facility] [address] [place] [address] PCP - General Obstetrics Gynecology 12/09/20 Mercedes Dc MD [address] [facility] [address] [place] [address] 09/05/17 Dante Lambert MD [address] [facility] [place] [address] Specialist Gastroenterology 03/09/15 Team Status: Active Member Role Status Dates No Primary Care Physician Primary Care Provider Active Team Status: Inactive Member Role Status Dates No Primary Care Physician Primary Care Provider, Refer ring Provider Active Dr. Lilia Tovar MD Attending Provider Active Team Status: Inactive Member Role Status Dates No Primary Care Physician Primary Care Provider Active Dr. Lilia Tovar MD Attending Provider, Referr ing Provider Active Chemical Equipment Repairer Relationship Specialty Start Date End Date Anni Horton PCP - General Family Medicine 10/13/15 Team Status: Inactive Member Role Status Dates No Primary Care Physician Primary Care Provider, Refer ring Provider Active Stephany Lehman CLINICAL CODER, CLINICAL CODER-C Attending Provider Active Team Status: Inactive Member Role Status Dates No Primary Care Physician Primary Care Provider, Refer ring Provider Active Felicita Sweet CNM Attending Provider Active Team Status: Inactive Member Role Status Dates No Primary Care Physician Primary Care Provider Active Felicita Sweet CNM Attending Provider, Referring Pro vider Active Dr. Lilia Tovar MD Other Provider Active Team Status: Inactive Member Role Status Dates No Primary Care Physician Primary Care Provider, Refer ring Provider Active Dr. Anni Harman DO Attending Provider Activ e Team Status: Inactive Member Role Status Dates No Primary Care Physician Primary Care Provider, Refer ring Provider Active Aleshia Bear CNM Attending Provider Active Team Status: Inactive Member Role Status Dates No Primary Care Physician Primary Care Provider Active Aleshia Bear CNM Attending Provider, Referring Pr ovider Active Team Status: Inactive Member Role Status Dates No Primary Care Physician Primary Care Provider Active Aleshia Bear CNM Attending Provider Active Team Status: Active Member Role Status Dates No Primary Care Physician Primary Care Provider Active Aleshia Bear CNM Admit Provider, At tending Provider, Referring Provider, Other Provider Active Team Status: Inactive Member Role Status Dates No Primary Care Physician Primary Care Provider Active Aleshia Bear CNM Admit Provider, At tending Provider, Referring Provider Active Chemical Equipment Repairer Relationship Specialty Start Date End Date Anni Horton PCP - General Family Medicine 10/13/15 Chemical Equipment Repairer Relationship Specialty Start Date End Date Anni Horton PCP - General Family Medicine 10/13/15 Chemical Equipment Repairer Relationship Specialty Start Date End Date HortonAnni PCP - General Family Medicine 10/13/15 Chemical Equipment Repairer Relationship Specialty Start Date End Date BrennanAnni PCP - General Family Medicine 10/13/15 Chemical Equipment Repairer Relationship Specialty Start Date End Date HortonAnni PCP - General Family Medicine 10/13/15 [address] [place] [address] Referring Family Medicine 01/10/24 Team Status: Active Member Role/Relationship Status Dates No Primary Care Physician Primary Care Provider Active Team Status: Active Member Role/Relationship Status Dates No Primary Care Physician Primary Care Provider Active Start: October 24, 2024 Cindy Beth RN Attending Provider Active St art: October 24, 2024 Team Status: Inactive Member Role/Relationship Status Dates No Primary Care Physician Primary Care Provider Active Start: November 07, 2024 End: November 07, 2024 No Primary Care Physician Referring Provider Active Start: November 07, 2024 End: November 07, 2024 Aleshia Bear CNM Attending Provider Active Start: November 07, 2024 End: November 07, 2024 Team Status: Active Member Role/Relationship Status Dates No Primary Care Physician Primary Care Provider Active Start: November 07, 2024 Aleshia Bear CNM Attending Provider Active Start: November 07, 2024 Alehsia Bear CNM Referring Provider Active Start: November 07, 2024 Team Status: Inactive Member Role/Relationship Status Dates No Primary Care Physician Primary Care Provider Active Start: November 07, 2024 End: November 07, 2024 Aleshia Bear CNM Attending Provider Active Start: November 07, 2024 End: November 07, 2024 Aleshia Bear CNM Referring Provider Active Start: November 07, 2024 End: November 07, 2024 Team Status: Inactive Member Role/Relationship Status Dates No Primary Care Physician Primary Care Provider Active Start: December 03, 2024 End: December 03, 2024 No Primary Care Physician Referring Provider Active Start: December 03, 2024 End: December 03, 2024 Dr. Anni Harman , DO Attending Provider Activ e Start: December 03, 2024 End: December 03, 2024 Team Status: Active Member Role/Relationship Status Dates No Primary Care Physician Primary Care Provider Active Start: December 03, 2024 Dr. Anni Harman DO Attending Provider Activ e Start: December 03, 2024 Dr. Anni Harman DO Referring Provider Activ e Start: December 03, 2024 Team Status: Inactive Member Role/Relationship Status Dates No Primary Care Physician Primary Care Provider Active Start: December 03, 2024 End: December 03, 2024 Dr. Anni Harman , Attending Provider Activ e Start: December 03, 2024 End: December 03, 2024 Dr. Anni Harman DO Referring Provider Activ e Start: December 03, 2024 End: December 03, 2024 Team Status: Inactive Member Role/Relationship Status Dates No Primary Care Physician Primary Care Provider Active Start: January 02, 2025 End: January 02, 2025 No Primary Care Physician Referring Provider Active Start: January 02, 2025 End: January 02, 2025 Aleshia Bear CNM Attending Provider Active Start: January 02, 2025 End: January 02, 2025 Team Status: Inactive Member Role/Relationship Status Dates No Primary Care Physician Primary Care Provider Active Start: January 21, 2025 End: January 21, 2025 No Primary Care Physician Referring Provider Active Start: January 21, 2025 End: January 21, 2025 Stephany Lehman CLINICAL CODER, CLINICAL CODER-C Attending Provider Active Start: January 21, 2025 End: January 21, 2025 Team Status: Active Member Role/Relationship Status Dates No Primary Care Physician Primary care physician Activ e Team Status: Active Member Role/Relationship Status Dates No Primary Care Physician Primary care physician Activ e Start: October 24, 2024 Cindy Beth RN Attending physician Active S tart: October 24, 2024 Team Status: Inactive Member Role/Relationship Status Dates No Primary Care Physician Primary care physician Activ e Start: November 07, 2024 End: November 07, 2024 No Primary Care Physician Referring Provider Active Start: November 07, 2024 End: November 07, 2024 Aleshia Bear CNM Attending physician Active Start: November 07, 2024 End: November 07, 2024 Team Status: Inactive Member Role/Relationship Status Dates No Primary Care Physician Primary care physician Activ e Start: November 07, 2024 End: November 07, 2024 Aleshia Bear CNM Attending physician Active Start: November 07, 2024 End: November 07, 2024 Aleshia Bear CNM Referring Provider Active Start: November 07, 2024 End: November 07, 2024 Team Status: Inactive Member Role/Relationship Status Dates No Primary Care Physician Primary care physician Activ e Start: December 03, 2024 End: December 03, 2024 No Primary Care Physician Referring Provider Active Start: December 03, 2024 End: December 03, 2024 Dr. Anni Harman DO Attending physician Acti ve Start: December 03, 2024 End: December 03, 2024 Team Status: Inactive Member Role/Relationship Status Dates No Primary Care Physician Primary care physician Activ e Start: December 03, 2024 End: December 03, 2024 Dr. Anni Harman DO Attending physician Acti ve Start: December 03, 2024 End: December 03, 2024 Dr. Anni Harman , Referring Provider Activ e Start: December 03, 2024 End: December 03, 2024 Team Status: Inactive Member Role/Relationship Status Dates No Primary Care Physician Primary care physician Activ e Start: January 02, 2025 End: January 02, 2025 No Primary Care Physician Referring Provider Active Start: January 02, 2025 End: January 02, 2025 Aleshia Bear CNM Attending physician Active Start: January 02, 2025 End: January 02, 2025 Team Status: Inactive Member Role/Relationship Status Dates No Primary Care Physician Primary care physician Activ e Start: January 21, 2025 End: January 21, 2025 No Primary Care Physician Referring Provider Active Start: January 21, 2025 End: January 21, 2025 Stephany Lehman NP, CLINICAL CODER-C Attending physician Active Start: January 21, 2025 End: January 21, 2025 Team Status: Inactive Member Role/Relationship Status Dates No Primary Care Physician Primary care physician Activ e Start: February 16, 2025 End: February 16, 2025 No Primary Care Physician Referring Provider Active Start: February 16, 2025 End: February 16, 2025 Felicita Sweet CNM Attending physician Active Start: February 16, 2025 End: February 16, 2025 Source Comments (unrecognize d section and content) In the event this informatio n is protected by the Federal Confidentiality of Alcohol and Drug Abuse Patient Records regulations: The Federal rules restrict any use of the information to criminally investigate or prosecute any alcohol or drug abuse patient.[facility] the event this information is protected by the Federal Confidentiality of Alcohol and Drug Abuse Patient Records regulations: The Federal rules restrict any use of the information to criminally investigate or prosecute any alcohol or drug abuse patient.[facility] the event this information is protected by the Federal Confidentiality of Alcohol and Drug Abuse Patient Records regulations: The Federal rules restrict any use of the information to criminally investigate or prosecute any alcohol or drug abuse patient.[facility] the event this information is protected by the Federal Confidentiality of Alcohol and Drug Abuse Patient Records regulations: The Federal rules restrict any use of the information to criminally investigate or prosecute any alcohol or drug abuse patient.[facility] the event this information is protected by the Federal Confidentiality of Alcohol and Drug Abuse Patient Records regulations: The Federal rules restrict any use of the information to criminally investigate or prosecute any alcohol or drug abuse patient.[facility] the event this information is protected by the Federal Confidentiality of Alcohol and Drug Abuse Patient Records regulations: The Federal rules restrict any use of the information to criminally investigate or prosecute any alcohol or drug abuse patient.[facility] the event this information is protected by the Federal Confidentiality of Alcohol and Drug Abuse Patient Records regulations: The Federal rules restrict any use of the information to criminally investigate or prosecute any alcohol or drug abuse patient.[facility] Reason for Visit (unrecogniz ed section and content) Reason Comments Results Reason Comments Crohns Reason Comments Appointment Reason Comments Patient Question Concerns regarding b reastfeeding Reason Comments Information Strategist - Other Genetics - Fami ly History Goals (unrecognized section and content) Type Care Experience discussed IOL by 39 per GI recommendationLabor Preferences-CB/BF classes: BF classes done, planning online CB classeslabor support person: Randy intervention preferences: []pain management options preferred: epiduralcut cord/dad catch: nobreastfeeding: yesPP control planned: discusseddiscussed possible routes of delivery and associated risks: []special requests: [] Care Experience Labor Preferences-CB /BF classes: Denieslabor support person: Randy intervention preferences: pain management options preferred: Epiduralcut cord/dad catch: cordbreastfeeding: yesPP control planned: []discussed possible routes of delivery and associated risks: []special requests: warm compress to perineum, active perineal support during second phase. Care Experience Labor Preferences-CB /BF classes: []labor support person: []labor intervention preferences: []pain management options preferred: []cut cord/dad catch: []: []PP control planned: []discussed possible routes of delivery and associated risks: []special requests: [] FOR RECORDS PERTAINING TO PATIENTS WHO ARE OR HAVE BEEN ENROLLED IN A CHEMICAL DEPENDENCY/SUBSTANCEABUSE PROGRAM, SOME INFORMATION MAY BE OMITTED. This clinical summary was aggregated from multiple sources. Caution should be exercised in using it in the provision of clinical care. This summary normalizes information from multiple sources, and as a consequence, information in this document may materially change the coding, format and clinical context of patient data. In addition, data may be omitted in some cases. CLINICAL DECISIONS SHOULD BE BASED ON THE PRIMARY CLINICAL RECORDS. [employer] provides no warranty or guarantee of the accuracy or completeness of information in this document.
[2025-05-09 05:01] VITALS: BP 134/75; PULSE 93; RESP 16; TEMP 36.3
[2025-05-09 05:03] VITALS: TEMP 36.3
[2025-05-09 05:45] VITALS: BMI 31.3
[2025-05-09] MEDS: Lactated Ringers 1,000 ML 999 ML IV (06:10)
--- NOTE | 2025-05-10 17:27 | OB.TRI.HP_ITS ---
HPI - General HPI Narrative TIMBO NULL, is a 29 y/o @ 35 weeks 5 days who presents to L&D with contractions. IV fluids ordered and observation on the unit ordered. The nurse reports that her cervix is closed. Maternal Data Information GEORGE Calculator Estimated Delivery Date Method Current WG Current Estimate 06/12/25 LMP (Certain) 35w 2d Other Estimates 06/06/25 Ultrasound #2 36w 1d PFSH PFSH Medical History depression Anxiety Crohn's disease Home Medications ?Medication ?Instructions ?Recorded ?Last Taken ?Type multivitamin no.47-iron fum 27 1 cap PO DAILY PREGNANC Y 05/11/22 05/08/25 08:00 History mg-folate no.1 1 mg-dha 300 mg capsule (PNV-DHA) omega-3 fatty acids-fish oil 300 1 cap PO DAILY 05/08/25 08:00 History mg-1,000 mg capsule Allergy/AdvReac Type Severity Reaction Status Date / Time Penicillins Allergy Intermediate Hives Verified 05/09/25 05:08 Family History Father Hypertension Brother Hypertension Mother Thyroid disorder Grandfather Cancer Leukemia Aunt Cancer Leukemia Uncle Cancer Leukemia Aunt Liver cancer Social History adopted: No household members: spouse and children housing: house number of children: 2 current occupation: [employer] current occupational exposures/hazards: No pets and animals: Yes pets and animals: dog(s) history of recent travel: No sexually active: Yes Smoking Status: Never smoker second hand exposure: No alcohol intake: never substance use type: does not use diet: gluten free well-balanced diet: daily or most days caffeine: Yes Type: coffee Number of servings: 1 eating out: 1-3 times/week during the past year weight has: remained stable what type of physical activity do you participate in: walking and weight training frequency: 5-6 times per week duration: 30-45 minutes/day morena/yarsanism: Confucianist seatbelt use: always do you feel safe at home: Yes additional social history: : Vincent melgar History 3 Elective abortions Hx Para 2 Spontaneous abortions 0 Hx # Term Pregnancies 2 Ectopic pregnancies Hx # Pregnancies Multiple births # of living children 2 Past Pregnancies Del. Date Name GA/Weeks Outcome Route Bth Weight Infant Gen Labor Lgth Anesthesia Del Locatn Provider FOB 04/04/21 Jones 39 live - full term 7lbs 10oz Male ep idural [facility] SM Vincent 12/10/22 Miriam 38 live - full term 6lbs 10oz Female none [facility] Aleshianeyda Bear CNM Vincent Delivery Date: 04/04/21 Last Updated by: Maryellen Torrez PROM Delivery Date: 12/10/22 Last Updated by: Linda Scruggs see problem list for complications. Visit Details Expected Delivery Route/Plan Labor Preferences- CB/BF classes: no labor support person: Vincent labor intervention preferences: [] pain management options preferred: limited cut cord/dad catch: yes : yes PP control planned: discussed discussed possible routes of delivery and associated risks: [] special requests: [] Plans Covid status: [] Flu vaccine: declines Tdap vaccine: declines Rhogam: NA LARC form signed: yes Problem list reviewed and updated with the most current plan of care details and appropriate orders placed. Relevant counseling for the gestational age provided. Continue routine care and follow up unless otherwise noted in visit notes/problem list details OB Flowsheet Initial Weight: 151 lb Date -?-?-?-?-?-?-?-?-?-?-?-?- EGA Weight BP Urine Prot -?-?-?-?-?-?-?-?-?-?-?-?- Glucose FHR FuHt Pres Dilation -?-?-?-?-?-?-?-?-?-?-?-?- Effaced St Visit Note 11/07/24 -?-?-?-?-?-?-?-?-?-?-?-?- 9w 0d 151 lb 4 oz (+4 oz) 121/76 -?-?-?-?-?-?-?-?-?-?-?-?- 175 -?-?-?-?-?-?-?-?-?-?-?-?- LC-2.71cm con wi th LMP. declines nipt. 12/03/24 -?-?-?-?-?-?-?-?-?-?-?-?- 12w 5d 153 lb 2 oz (+2 lb 2 oz) 117/76 Negative -?-?-?-?-?-?-?-?-?-?-?-?- Negative 165 -?-?-?-?-?-?-?-?-?-?-?-?- JV- CRL today is measuring 13 weeks 4 days however first scan per LC was measuring closer to LMP. no change in due date but did have an abnormal free T4 back in 2022 that needs repeated today. 01/02/25 -?-?-?-?-?-?-?-?-?-?-?-?- 17w 0d 158 lb 2 oz (+7 lb 2 oz) 121/76 Negative -?-?-?-?-?-?-?-?-?-?-?-?- Negative 146 -?-?-?-?-?-?-?-?-?-?-?-?- LC- feeling flut ters. no vb/cramping. feeling well. tsh normal. LC- feeling flutters. no vb/ cramping. feeling well. free t4 normal. 01/21/25 -?-?-?-?-?-?-?-?-?-?-?-?- 19w 5d 161 lb 1 oz (+10 lb 1 oz) 113/76 Negative -?-?-?-?-?-?-?-?-?-?-?-?- Negative 145 -?-?-?-?-?-?-?-?-?-?-?-?- -No VB, LOF. F eeling flutters 02/16/25 -?-?-?-?-?-?-?-?-?-?-?-?- 23w 3d 166 lb 3 oz (+15 lb 3 oz) 119/80 Negative -?-?-?-?-?-?-?-?-?-?-?-?- Negative 150 23 -?-?-?-?-?-?-?-?-?-?-?-?- KW- no vb/crampi ng. good fm. discussed glucose 03/11/25 -?-?-?-?-?-?-?-?-?-?-?-?- 26w 5d 171 lb 5 oz (+20 lb 5 oz) 104/71 Negative -?-?-?-?-?-?-?-?-?-?-?-?- Negative 152 27 -?-?-?-?-?-?-?-?-?-?-?-?- MH-No VB. Francois F M. 28 wk labs pending. Larc. Declines flu/tdap. Large varicosity right vulva-management discussed. 04/01/25 -?-?-?-?-?-?-?-?-?-?-?-?- 29w 5d 174 lb 1 oz (+23 lb 1 oz) 120/73 Negative -?-?-?-?-?-?-?-?-?-?-?-?- Negative 135 30 -?-?-?-?-?-?-?-?-?-?-?-?- SM- no vb lof go od fm no regular ctx 04/13/25 -?-?-?-?-?-?-?-?-?-?-?-?- 31w 3d 174 lb 9 oz (+23 lb 9 oz) 112/73 Negative -?-?-?-?-?-?-?-?-?-?-?-?- Negative 135 32 -?-?-?-?-?-?-?-?-?-?-?-?- SM- no vb lof go od fm no reuglar ctx 05/01/25 -?-?-?-?-?-?-?-?-?-?-?-?- 34w 0d 177 lb 1 oz (+26 lb 1 oz) 128/79 Negative -?-?-?-?-?-?-?-?--?-?-?-?- Negative 140 34 -?-?-?-?-?-?-?-?-?-?-?-?- KW- NO vb/lof/ct x. good fm. 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 (3) Supervision of normal : QUALIFIERS: Normal : other normal Trimester: second trimester Qualified Code(s): Z34.82 - Encounter for supervision of other normal , second trimester COMMENT: PRR , GEORGE 06/12/25; boy PC: Bob, : Vincent (4) : QUALIFIERS: Weeks of gestation: 34 weeks Qualified Code(s): Z3A.34 - 34 weeks gestation of COMMENT: Discussed genetic/carrier testing - declines. (5) History of depression, currently : COMMENT: Was on Zoloft, no meds currently; Stable may desire to restart immediately pp (6) Crohn's disease: QUALIFIERS: Gastrointestinal tract location: unspecified location Digestive disease complication type: unspecified complication Qualified Code(s): K50.919 - Crohn's disease, unspecified, with unspecified complications PLAN: Plan No cervical change after 2 hours and patient felt better after IV fluids and rest. She requested dc to home Charges/Coding Multi Select Codes Urinary/Genital Urinary/Genital CPT Codes: 04204-50 non-stress test Interp
== END 2025-05-09 07:35 | disposition home or self-care (01) ==
LOC: WPOUT 04:46 → WP 04:47
PROVIDERS: Referring Provider Obstetrics & Gynecology; Visit Provider Obstetrics & Gynecology
DX: O47.03 False labor before 37 completed weeks of gestation, third trimester (principal); K50.90 Crohn's disease, unspecified, without complications; O99.613 Diseases of the digestive system complicating pregnancy, third trimester; O22.03 Varicose veins of lower extremity in pregnancy, third trimester; Z3A.35 35 weeks gestation of pregnancy
CPT/HCPCS: 96365; 59025; 59050; 99221; G0378